=== PATIENT | female | born 1965 | race Caucasian/White ===

== ENCOUNTER → 2017-11-13 16:24 | Outpatient (CLI) | payer OTHER, SELFPAY ==
--- NOTE | 2017-11-13 16:29 | DI.RAD.S_ITS ---
PROCEDURE: XR KNEE RT 3V INDICATIONS: RIGHT KNEE PAIN TECHNIQUE: 3 views of the knee were acquired. COMPARISON: None. FINDINGS: Bones: No fractures or dislocations. No suspicious bony lesions. Slight narrowing of the medial joint compartment. Small bone spurs over the posterior patella. Soft tissues: Trace joint effusion. No suspicious soft tissue calcifications. IMPRESSION: No acute bony abnormality. Mild degenerative changes. Dictated by: Christopher Melendez M.D. on 11/13/2017 at 16:54 Approved by: Christopher Melendez M.D. on 11/13/2017 at 16:55
== END ==
PROVIDERS: PCP Family Medicine; Visit Provider Family Medicine
DX: M25.561 Pain in right knee (principal)
CPT/HCPCS: 73562

== ENCOUNTER → 2017-12-27 07:33 | Outpatient (CLI) | payer OTHER, SELFPAY ==
--- NOTE | 2017-12-27 | DI.MRI.S_ITS ---
PROCEDURE: MR KNEE RT WO CON INDICATIONS: RIGHT KNEE PAIN TECHNIQUE: Noncontrast sagittal PD fast spin echo and T2 fast spin echo with fat saturation, sagittal 3-D FLASH with fat saturation; coronal T1 spin echo and PD fast spin echo with fat saturation, and axial PD fast spin echo with fat saturation through the knee. COMPARISON: [facility], CR, XR KNEE RT 3V, 11/13/2017, 16:08. FINDINGS: Image quality: Diagnostic. Bones and joint: There is no acute fracture or dislocation. No suspicious osseous lesions are evident. No significant knee joint effusion is identified. There is no Suh's cyst. Moderate irregularity of the hyaline articular cartilage is noted within the lateral compartment, particularly along the central aspect of the lateral tibial plateau with areas of cartilaginous fissuring. No underlying reactive marrow changes are evident. Otherwise, the remainder of the articular cartilage throughout the knee is within normal limits. Cruciate ligaments: The anterior and posterior cruciate ligaments are intact. Menisci: Horizontal increased signal is identified extending from the periphery to the free edge of the body of the lateral meniscus. No detached or displaced lateral meniscal tears are identified. There is increased signal evident on the periphery of the posterior horn of the medial meniscus. No detached fragments are identified. Medial structures: The medial collateral ligament is intact. The semimembranosus tendon insertion is intact. However, this tendon is markedly diminutive in size. The imaged portions of the pes anserinus tendons are unremarkable. No significant fluid is contained within the pes anserinus bursa. Lateral structures: The popliteal tendon is intact. The lateral collateral ligament proper (fibular collateral ligament) and the proximal tibiofibular ligaments are intact. The distal aspect of the biceps femoris tendon and the iliotibial band are intact. Anterior structures: The quadriceps and patellar tendons are intact. There is no significant edema in the infrapatellar fat pad. IMPRESSION: 1. Nondisplaced horizontal tear involving the body of the lateral meniscus. 2. Early lateral compartment chondromalacia. 3. Probable fraying along the periphery of the posterior horn of the medial meniscus. No displaced fragments. Dictated by: Abrahan Howe M.D. on 12/27/2017 at 16:35 Approved by: Abrahan Howe M.D. on 12/27/2017 at 16:39
== END ==
PROVIDERS: PCP Family Medicine; Visit Provider Family Medicine
DX: S83.281A Other tear of lateral meniscus, current injury, right knee, initial encounter (principal); M94.261 Chondromalacia, right knee
CPT/HCPCS: 73721

== ENCOUNTER → 2018-09-22 08:00 | Outpatient (CLI) | payer OTHER, SELFPAY ==
--- NOTE | 2018-09-22 08:03 | DI.MG.S_ITS ---
BILATERAL DIGITAL SCREENING MAMMOGRAM 3D/2D WITH CAD: 09/22/2018 CLINICAL: Routine screening. Comparison is made to exams dated: 08/17/2016 mammogram, 05/21/2015 mammogram, and 04/10/2007 mammogram - [facility]. The tissue of both breasts is heterogeneously dense. This may lower the sensitivity of mammography. Current study was also evaluated with a Computer Aided Detection (CAD) system. There is a possible equal density asymmetry in the right breast middle depth lateral region seen on the craniocaudal view only. No other significant masses, calcifications, or other findings are seen in either breast. IMPRESSION: INCOMPLETE: NEEDS ADDITIONAL IMAGING EVALUATION The possible equal density asymmetry in the right breast is indeterminate. Additional views with possible ultrasound are recommended. This exam was interpreted at Station ID: [id number]. NOTE: For mammograms, a report in lay terms will be sent to the patient. Approximately 15% of breast malignancies will not be visualized mammographically. In the management of a palpable breast mass, a negative mammogram must not discourage biopsy of a clinically suspicious lesion. Electronically Signed By: True mendenhall/melissa:09/25/2018 10:20:18 copy to: Onur Martini letter sent: Additional Imaging Needed ACR BI-RADS Category 0: Incomplete 3340F
== END ==
PROVIDERS: PCP Family Medicine; Visit Provider Family Medicine
DX: Z12.31 Encounter for screening mammogram for malignant neoplasm of breast (principal)
CPT/HCPCS: 77063; 77067

== ENCOUNTER → 2018-10-12 09:11 | Outpatient (CLI) | payer OTHER, SELFPAY ==
--- NOTE | 2018-10-12 | DI.MG.S_ITS ---
UNILATERAL RIGHT DIGITAL DIAGNOSTIC MAMMOGRAM 3D/2D WITH ADDITIONAL VIEWS: 10/12/2018 Comparison is made to exams dated: 09/22/2018 mammogram, 08/17/2016 mammogram, and 05/21/2015 mammogram - [facility]. The tissue of right breast is heterogeneously dense. This may lower the sensitivity of mammography. The irregular equal density asymmetry in the right breast middle depth lateral region is less prominent with focal spot compression and lateral view. No other significant masses or calcifications are seen in the breast. IMPRESSION: INCOMPLETE: NEEDS ADDITIONAL IMAGING EVALUATION Although the asymmetry in the lateral breast dissapates with additional views, an ultrasound is recommended for further evaluation. This was performed immediately following this exam. This exam was interpreted at Station ID: [id number]. NOTE: For mammograms, a report in lay terms will be sent to the patient. Approximately 15% of breast malignancies will not be visualized mammographically. In the management of a palpable breast mass, a negative mammogram must not discourage biopsy of a clinically suspicious lesion. Electronically Signed By: Cynthia sullivan/:10/12/2018 11:46:32 copy to: Onur Martini [facility] BI-RADS Category 0: Incomplete 3340F
--- NOTE | 2018-10-12 09:12 | DI.US.S_ITS ---
LIMITED ULTRASOUND OF RIGHT BREAST: 10/12/2018 CLINICAL: Patient returns today to evaluate a focal asymmetry in the right breast. Comparison is made to exams dated: 10/12/2018 mammogram, 09/22/2018 mammogram, 08/17/2016 mammogram, 05/21/2015 mammogram, and 04/10/2007 mammogram - [facility]. Color flow, real-time, and continuous wave Doppler ultrasound of the right breast 9-11 o'clock region were performed. Dense fibrous strands of tissue with multiple small foci of hypoechoic glandular tissue without discrete shadowing mass are present from 9-11:00, 3-5 cm from the nipple. No one focal area corresponds to mammographic area of concern. IMPRESSION: PROBABLY BENIGN Dense fibroglandular tissue is present without a distinct lesion. Mammographic and sonographic appearance is probably benign and a follow-up right mammogram and an ultrasound in 6 months is recommended to demonstrate stability. Findings and recommendations were conveyed to the patient at time of exam. This exam was interpreted at Station ID: [id number]. Electronically Signed By: Cynthia sullivan/:10/12/2018 11:52:27 copy to: Onur Martini letter sent: Followup Recommended Ultrasound BI-RADS: 3 Probably benign
== END ==
PROVIDERS: PCP Family Medicine
DX: R92.8 Other abnormal and inconclusive findings on diagnostic imaging of breast (principal); N64.89 Other specified disorders of breast
CPT/HCPCS: 76642; 77065; G0279

== ENCOUNTER 2019-01-03 12:35 | Day surgery (SDC) | payer OTHER, SELFPAY ==
--- NOTE | 2019-01-03 | PATH_ITS ---
[facility] Accession Number: [id number] . 01 Material submitted: . colon - COLON POLYP AT 90 CM . 01 Clinical history: . ENCOUNTER FOR SCREENING FOR MAILGNANT NEOPLASM . 02 Diagnosis: Colon at 90 cm, Polyp: Colonic mucosa with prominent benign lymphoid aggregate. Negative for serrated lesion, dysplasia or malignancy. 01/04/2019 . 02 Electronically signed: . Jed Yoo MD, PhD, Pathologist NPI- [id number] . 01 Gross description: . COLON POLYP AT 90 CM: Received in formalin are 2 fragment(s) of frank, soft tissue measuring 0.2 x 0.2 x 0.2 cm to 0.3 x 0.2 x 0.2 cm which is entirely submitted and submitted entirely in 1 cassette(s) /DMC /DMC . 02 Pathologist provided ICD-10: K63.5 . 02 CPT . 604770 Performed at: 01 [facility] [address], [place], [place] [id number] MD Dom Thurman MD Phone: [phone] Performed at: 02 [facility] [address] [place], [place] [id number] MD Asiya Edwards MD Phone: [phone]
[2019-01-03 13:36] VITALS: BP 120/78; PULSE 71; RESP 16; TEMP 36.1; O2SAT 98; BMI 33.0
[2019-01-03] MEDS: SODIUM CHLORIDE 0.9% 1,000 ML 200 ML IV (13:44)
--- NOTE | 2019-01-03 14:34 | PM.HP.1 ---
History of Present Illness History of Present Illness Date Patient Seen: 01/03/19 Time Patient Seen: 14:34 Chief complaint: [id number] Narrative: Patient presents for colorectal screening. They have never had any previous examination for such. On further history denies any recent gastrointestinal symptoms. No nausea, vomiting, abdominal pain, loss of appetite, unexplained weight loss, change in bowel habits, diarrhea, constipation, melena, hematochezia, or bright red blood per rectum. Patient History Surgical History History of third molar tooth extraction Status post dilation and curettage Status post laparoscopic cholecystectomy Social History household members: family Smoking Status: Never smoker Family & Social History Social History: household members family Tobacco & Substance use: Smoking Status Never smoker Meds Home Medications and Allergies Home Medications Medication Instructions Recorded Confirmed Type venlafaxine [Effexor XR] 150 mg PO QDAY #0 05/27/16 01/03/19 History acyclovir 400 mg PO BID #120 mg 12/22/16 01/03/19 Rx colesevelam 625 mg tablet 1,250 mg PO BID 06/25/18 01/03/19 History divalproex 500 mg tablet,delayed 500 mg PO BID 06/25/18 01/03/19 History release levothyroxine 50 mcg PO DAILY 01/03/19 01/03/19 History Allergies Allergy/AdvReac Type Severity Reaction Status Date / Time aspirin [ASPIRIN] Allergy Unknown UNKNOWN Verified 01/03/19 13:18 codeine [CODEINE] Allergy Unknown UNKNOWN Verified 01/03/19 13:18 ibuprofen [IBUPROFEN] Allergy Unknown UNKNOWN Verified 01/03/19 13:18 lamotrigine [LAMOTRIGINE] Allergy Unknown WELTS/ITCHI Verified 01/03/19 13:18 NG oxycodone [OXYCODONE] Allergy Unknown UNKNOWN Verified 01/03/19 13:18 Penicillins [PENICILLINS] Allergy Unknown UNKNOWN Verified 01/03/19 13:18 Sulfa (Sulfonamide Allergy Unknown UNKNOWN Verified 01/03/19 13:18 Antibiotics) [SULFA (SULFONAMIDE ANTIBIOTICS)] Review of Systems Review of Systems ROS Unobtainable: All systems reviewed & are unremarkable except as noted in HPI and below Exam Vital Signs (past 8 hours): - 01/03/19 13:36 Temperature 96.9 F L Pulse Rate 71 Respiratory Rate 16 Blood Pressure 120/78 Pulse Oximetry 98 Oxygen Delivery Method Room Air Narrative Exam Narrative: General-adult female no acute distress, well nourished HEENT-moist mucous membranes, no scleral icterus Neck-supple with full range of motion, no lymphadenopathy Chest- no labored respirations, clear to auscultation bilaterally Cardiac-regular rate and rhythm Abdomen-soft, nontender, non distended Extremities-no edema, warm well perfused Neurological-alert and oriented x 3. No focal deficits Skin-normal temperature and turgor, no rashes or ulcers Assessment & Plan Assessment and plan (1) Screening for colorectal cancer: Current visit: Yes Status: Acute Assessment & Plan narrative: Patient is requiring colorectal screening. Colonoscopy is recommended. Technical details were discussed. Risks, benefits, alternatives explained. Risks including but not limited to sedation, aspiration, bleeding, pain, missed lesion, incomplete examination, need for further radiographic studies, colonic perforation, need for major abdominal surgery, and all attendant risks major surgery were discussed at length. All questions were answered to their satisfaction, and they voiced understanding.
[2019-01-03] MEDS: ONDANSETRON 4 MG/2 ML INJ IV (15:18)
[2019-01-03] MEDS: fentaNYL 250 MCG/5 ML INJ IV (15:19)
[2019-01-03] MEDS: MIDAZOLAM 5 MG/5 ML VIAL IV (15:19)
[2019-01-03 15:22] VITALS: BP 105/71; PULSE 69; RESP 13; TEMP 36.2; O2SAT 98
--- NOTE | 2019-01-03 15:25 | PM.OP.ENDO ---
Operative Date/Time/Diagnoses Date of procedure: 01/03/19 Time of procedure: 15:25 Pre-op diagnosis: Screening colonoscopy Post-op diagnosis: other (Diverticulosis) Procedure & Clinicians Study performed: Colonoscopy Same procedure as scheduled: Yes Indications: 53-year-old asymptomatic female presents for screening colonoscopy Surgeon: Yonatan Mendez Procedure Notes SCOAP/Timeout: Performed Procedure in detail: A digital rectal exam was performed that demonstrated no masses. Colonoscope was carefully inserted into the rectum and advanced to the colon. The ileocecal valve was reached. There was a colonic polyp 90 cm in the right colon that was less than 1 cm and benign and P in its appearance that was biopsied. The scope was carefully withdrawn. Scope was retroflexed within the rectum in demonstrated grade 1 internal hemorrhoids. The scope was then removed. Patient tolerated the procedure well. The quality of the prep was moderate Scope withdrawal time: 10 Sedation minutes: 32 Findings: diverticulosis and polyp Specimen(s): other (Polyp less than 1 cm 90 cm right colon) Complications: none Impression: Polyp Post-procedure Recommendations: Colonscopy in 10 years Disposition: same day surgery
[2019-01-03 15:27] VITALS: BP 108/66; PULSE 66; RESP 18; O2SAT 98
--- NOTE | 2019-01-03 15:30 | SUR.PHASEI ---
Post procedure note: patient arrived to PACU Drowsy but awake. VSS, O2 sat on RA WNL. no complaints of pain. Sitting up, tolerating PO liquids and crackers without nausea. Mami Nugent RN
[2019-01-03 15:37] VITALS: BP 103/72; PULSE 68; RESP 14; TEMP 36.2; O2SAT 97
[2019-01-03 15:55] VITALS: BP 115/60; PULSE 69; RESP 18; TEMP 36.1; O2SAT 99
== END 2019-01-03 16:00 | disposition home or self-care (01) ==
PROVIDERS: PCP Family Medicine; Visit Provider Surgery
PROC: 0DJD8ZZ Inspection of Lower Intestinal Tract, Via Natural or Artificial Opening Endoscopic (ICD-10-PCS; CPT 45378; principal; 2019-01-03 14:00)
DX: Z12.11 Encounter for screening for malignant neoplasm of colon (principal); K57.30 Diverticulosis of large intestine without perforation or abscess without bleeding; K64.0 First degree hemorrhoids; K63.5 Polyp of colon
CPT/HCPCS: 45380; 93005; 99152; 99153; J2250; J2405; J3010

== ENCOUNTER → 2019-06-07 09:15 | Outpatient (CLI) | payer OTHER, SELFPAY ==
--- NOTE | 2019-06-07 09:18 | DI.MG.S_ITS ---
UNILATERAL RIGHT DIGITAL DIAGNOSTIC MAMMOGRAM 3D/2D SHORT-TERM FOLLOW-UP: 06/07/2019 CLINICAL: Short term follow up. Comparison is made to exams dated: 10/12/2018 mammogram, 09/22/2018 mammogram, and 08/17/2016 mammogram - [facility]. The tissue of right breast is heterogeneously dense. This may lower the sensitivity of mammography. The asymmetry in the right breast middle depth lateral region seen on the craniocaudal view only on the previous screening mammogram on 09/22/18 is not seen in additional views. This was not seen on additional views or ultrasound dated 10/12/18. No other significant masses or calcifications are seen in the breast. IMPRESSION: The asymmetry in the right breast seen on the previous screening mammogram likely respresents superimposed fibroglandular tissue and is benign. There is no mammographic evidence of malignancy. A 1 year screening mammogram is recommended. This exam was interpreted at Station ID: [id number]. NOTE: For mammograms, a report in lay terms will be sent to the patient. Approximately 15% of breast malignancies will not be visualized mammographically. In the management of a palpable breast mass, a negative mammogram must not discourage biopsy of a clinically suspicious lesion. Electronically Signed By: Radha Roberts M.D. lk/:06/07/2019 09:55:50 copy to: Onur Martini letter sent: Normal Exam ACR BI-RADS Category 2: Benign Finding(s) 3342F
== END ==
PROVIDERS: PCP Family Medicine
DX: R92.2 Inconclusive mammogram (principal)
CPT/HCPCS: 77065; G0279

== ENCOUNTER 2019-10-28 17:32 | Emergency (ER) | payer OTHER, SELFPAY ==
[2019-10-28] VITALS (28 sets, daily range): BP systolic 114–139; BP diastolic 68–92; PULSE 74–88; RESP 20; TEMP 37.1; O2SAT 94–99
--- NOTE | 2019-10-28 18:24 | DI.CT.S_ITS ---
PROCEDURE: CT HEAD/BRAIN WO CON INDICATIONS: headache TECHNIQUE: Noncontrast 4.5 mm thick angled axial sections acquired from the foramen magnum to the vertex, with coronal and sagittal reformats. For radiation dose reduction, the following was used: automated exposure control, adjustment of mA and/or kV according to patient size. COMPARISON: [facility], CT, HEAD WITHOUT CONTRAST, 08/02/2014, 5:12. FINDINGS: Image quality: Excellent. CSF spaces: Basal cisterns are patent. No extra-axial fluid collections. Ventricles are normal in size and shape. Brain: No midline shift. No intracranial masses or hemorrhage. De La Paz-white matter interface is normal. Skull and face: Calvarium and visualized facial bones are intact, without suspicious lesions. Sinuses: Visualized sinuses and mastoids are clear. IMPRESSION: No acute intracranial abnormality. Dictated by: Ashish Avendaño M.D. on 10/28/2019 at 19:04 Approved by: Ashish Avendaño M.D. on 10/28/2019 at 19:05
--- NOTE | 2019-10-28 18:24 | DI.CT.S_ITS ---
PROCEDURE: CT CERVICAL SPINE WO CON INDICATIONS: rt side neck pain TECHNIQUE: Noncontrast 3 mm thick sections acquired from the skull base to the T4 level. Sagittal and coronal reformats were then constructed. For radiation dose reduction, the following was used: automated exposure control, adjustment of mA and/or kV according to patient size. COMPARISON: CT, C-SPINE WITHOUT CONTRAST, 04/01/2008, 18:39. FINDINGS: Image quality: Excellent. Bones: No fractures or dislocations. There is degenerative disc disease, moderate to severe at C4-C5 and C5-C6, mild at C3-C4 and C6-C7. There is moderate central canal stenosis at C5-C6. Mild bilateral facet arthropathy scattered in the cervical spine. Visualized superior ribs are intact. Soft tissues: Prevertebral soft tissues are normal in thickness. No paravertebral hematomas. No apical pneumothoraces. IMPRESSION: 1. Degenerative disc and facet disease in cervical spine. 2. Moderate central canal stenosis at C5-C6. Dictated by: Ashish Avendaño M.D. on 10/28/2019 at 19:01 Approved by: Ashish Avendaño M.D. on 10/28/2019 at 19:19
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
[2019-10-28] MEDS: SODIUM CHLORIDE 0.9% 1,000 ML 1000 ML IV (19:02)
[2019-10-28 19:07] LABS: Add Manual Diff / Slide Review NO; Basophils Absolute Auto 100 /uL (0-100); Basophils Percent Auto 1.3 % (0-2); Eosinophils Absolute Auto 200 /uL (0-450); Eosinophils Percent Auto 2.8 % (2-4); Hematocrit 39.1 % (36-46); Hemoglobin 13.5 g/dL (12.0-16.0); Lymphocytes Absolute Auto 2400 /uL (1100-4500); Lymphocytes Percent Auto 39.3 % (25-40); Mean Corpuscular HGB Conc 34.4 % (30-36); Mean Corpuscular Hemoglobin 32.7 PG (26-34); Monocytes Absolute Auto 400 /uL (0-900); Monocytes Percent Auto 6.6 % (3-14); Neutrophils Absolute Auto 3100 /uL (1500-7000); Red Blood Cell Count 4.11 X10^6/uL (4.0-5.2); Red Cell Distribution Width 13.1 % (11.6-14.8); White Blood Cell Count 6.2 X10^3/uL (4.5-11.0)
[2019-10-28] MEDS: ONDANSETRON 4 MG/2 ML INJ IV (19:07)
[2019-10-28] MEDS: HYDROMORPHONE 1 MG INJ IV ×2 (19:07→21:59)
[2019-10-28 19:20] LABS: Platelet Count 107 X10^3/uL (150-400)
[2019-10-28 19:24] LABS: Alanine Aminotransferase 22 IU/L (<35); Albumin 4.2 g/dL (3.5-5.0); Albumin Globulin Ratio 1.4 (1.0-2.8); Alkaline Phosphatase 45 U/L (38-126); Aspartate Aminotransferase 39 IU/L (14-36); Bilirubin Total 0.3 mg/dL (0.2-1.3); Blood Urea Nitrogen 14 mg/dL (7-17); Calcium 8.9 mg/dL (8.4-10.2); Carbon Dioxide 25 mmol/L (22-32); Chloride 103 mmol/L (98-107); Estimated Glomerular Filt Rate > 60.0 mL/min (>60); Globulin 3.1 g/dL (1.7-4.1); Glucose 126 mg/dL (70-100); HEMOLYSIS 58 (0-50); Sodium 136 mmol/L (137-145); Total Protein 7.3 g/dL (6.3-8.2)
--- NOTE | 2019-10-28 20:03 | PC.NURSE ---
assumed care of pt. report rec'd from VINAY mckeon. resting in bed. IVF completed. reports dilaudid reduced pain from 02/07 to 10/08. reclined. asking for soda. given. VS WNL. NAD. awaiting further orders.
[2019-10-28] MEDS: diazePAM 5 MG TABLET PO (20:47)
[2019-10-28] MEDS: methylPREDNISolone 125 MG/2 ML VIAL 80 MG IV (21:58)
== END 2019-10-28 23:25 | disposition home or self-care (01) ==
PROVIDERS: Emergency Provider Emergency Medicine; PCP Family Medicine
DX: G43.909 Migraine, unspecified, not intractable, without status migrainosus (principal); M54.12 Radiculopathy, cervical region
CPT/HCPCS: 70450; 72125; 80053; 85025; 96361; 96374; 96375; 96376; 99284; J1170; J2405; J2930

== ENCOUNTER → 2020-06-26 11:33 | Outpatient (CLI) | payer OTHER, SELFPAY ==
--- NOTE | 2020-06-26 11:37 | DI.RAD.S_ITS ---
PROCEDURE: XR THORACIC SPINE 2V INDICATIONS: CERVICALGIA, BACK PAIN TECHNIQUE: 2 views of the thoracic spine were acquired. COMPARISON: None. FINDINGS: Bones: No fracture. Multilevel degenerative endplate sclerosis and spurring. Diffuse facet arthropathy. Soft tissues: No paravertebral stripe thickening. IMPRESSION: No fracture Dictated by: Raffy Boss M.D. on 06/26/2020 at 17:43 Approved by: Raffy Boss M.D. on 06/26/2020 at 17:44
--- NOTE | 2020-06-26 11:37 | DI.RAD.S_ITS ---
PROCEDURE: XR LUMBAR SPINE 2-3V INDICATIONS: BACK PAIN, NECK PAIN TECHNIQUE: 2 views of the lumbar spine were acquired. COMPARISON: None. FINDINGS: Bones: No fractureMultilevel degenerative endplate sclerosis and spurring. Diffuse facet arthropathy. Diffuse mild narrowing of the lumbar disc spaces. Minimal levocurvature. Bilateral moderate hip joint degeneration. Soft tissues: Overlying bowel gas pattern is normal. No suspicious soft tissue calcifications. IMPRESSION: Diffuse mild lumbar spondylosis and minimal levocurvature Facet arthropathy Dictated by: Raffy Boss M.D. on 06/26/2020 at 17:54 Approved by: Raffy Boss M.D. on 06/26/2020 at 17:55
--- NOTE | 2020-06-26 11:37 | DI.RAD.S_ITS ---
PROCEDURE: XR CERVICAL SPINE 2V INDICATIONS: BACK PAIN, NECK PAIN TECHNIQUE: 2 view(s) of the cervical spine were acquired. COMPARISON: None. FINDINGS: Bones: No fractures or dislocations to the T1 level. The lateral masses of C1 appear intact on the odontoid view. No suspicious bony lesions. Moderate C4-C5, C5-C6, C6-C7 and C7-T1 degenerative disc disease. Moderate bilateral C4-C5, C5-C6 and C6-C7 uncovertebral joint hypertrophy. Soft tissues: No prevertebral soft tissue swelling. IMPRESSION: 1. Moderate multilevel degenerative disc disease and uncovertebral arthropathy. 2. No fracture. No acute osseous lesion. If symptoms and/or clinical suspicion for pathology persists, evaluation with MRI should be considered for further assessment. Dictated by: Sunshine Bermudez MD, PhD on 06/26/2020 at 17:46 Approved by: Sunshine Bermudez MD, PhD on 06/26/2020 at 17:48
== END ==
PROVIDERS: PCP Family Medicine; Referring Provider Chiropractor; Visit Provider Chiropractor
DX: M99.01 Segmental and somatic dysfunction of cervical region (principal); M99.02 Segmental and somatic dysfunction of thoracic region; M99.03 Segmental and somatic dysfunction of lumbar region; M54.6 Pain in thoracic spine; M54.5 Low back pain; M47.812 Spondylosis without myelopathy or radiculopathy, cervical region; M50.321 Other cervical disc degeneration at C4-C5 level; M47.814 Spondylosis without myelopathy or radiculopathy, thoracic region; M47.816 Spondylosis without myelopathy or radiculopathy, lumbar region
CPT/HCPCS: 72040; 72070; 72100

== ENCOUNTER → 2020-08-27 10:11 | Outpatient (CLI) | payer OTHER, SELFPAY ==
--- NOTE | 2020-08-27 10:14 | DI.MG.S_ITS ---
BILATERAL DIGITAL SCREENING MAMMOGRAM 3D/2D WITH CAD: 08/27/2020 CLINICAL: Routine screening. Comparison is made to exams dated: 10/12/2018 mammogram, 09/22/2018 mammogram, and 08/17/2016 mammogram - [facility]. The tissue of both breasts is heterogeneously dense. This may lower the sensitivity of mammography. Current study was also evaluated with a Computer Aided Detection (CAD) system. No significant masses, calcifications, or other findings are seen in either breast. There has been no significant interval change. IMPRESSION: NEGATIVE There is no mammographic evidence of malignancy. A 1 year screening mammogram is recommended. This exam was interpreted at Station ID: [id number]. NOTE: For mammograms, a report in lay terms will be sent to the patient. Approximately 15% of breast malignancies will not be visualized mammographically. In the management of a palpable breast mass, a negative mammogram must not discourage biopsy of a clinically suspicious lesion. Electronically Signed By: Isaiah Bronson M.D., jr/melissa:08/27/2020 10:38:11 copy to: Onur Martini letter sent: Normal Exam ACR BI-RADS Category 1: Negative [id number]
== END ==
PROVIDERS: PCP Family Medicine; Referring Provider Family Medicine; Visit Provider Family Medicine
DX: Z12.31 Encounter for screening mammogram for malignant neoplasm of breast (principal)
CPT/HCPCS: 77063; 77067

== ENCOUNTER 2021-02-20 13:21 | Emergency (ER) | payer OTHER, SELFPAY ==
[2021-02-20 13:38] VITALS: BP 148/94; PULSE 73; RESP 20; TEMP 36.2; O2SAT 98; BMI 32.3
--- NOTE | 2021-02-20 15:41 | ED.NECK ---
HPI - Neck Pain/Injury <Glynn Reis PA-C - Last Filed: 02/20/21 16:08> General Chief Complaint: Neck Pain/Injury Stated Complaint: Severe neck pain Time Seen by Provider: 02/20/21 14:12 Mode of arrival: Ambulatory Limitations: no limitations History of Present Illness HPI Narrative: 55-year-old female presents to the emergency department today for evaluation of neck pain that began 3 days ago. Patient states that her pain has worsened since onset, and she denies any strenuous or repetitive physical activity prior to the onset of her symptoms. Patient states that her pain radiates to her shoulders bilaterally. Patient states that she experienced similar symptoms approximately 1 year ago after standing her deck at home. Denies fever, chills, nausea, vomiting, chest pain, shortness of breath, photophobia. No other complaints reported at this time. Related Data Home Medications Medication Instructions Recorded Confirmed venlafaxine 150 mg 150 mg PO QDAY #0 05/27/16 11/26/19 capsule,extended release 24 hr (Effexor XR) colesevelam 625 mg tablet (WelChol) 1,250 mg PO BID 06/25/18 11/26/19 divalproex 500 mg tablet,delayed 500 mg PO BID 06/25/18 11/26/19 release (Depakote) levothyroxine 50 mcg tablet 50 mcg PO DAILY 01/03/19 11/26/19 Previous Rx's Medication Instructions Recorded acyclovir 400 mg tablet 400 mg PO BID #120 mg 12/22/16 diazepam 5 mg tablet (Valium) 5 mg PO BID PRN #7 tab 10/28/19 gabapentin 300 mg capsule 300 mg PO BEDTIME #30 cap 02/20/21 methylprednisolone 4 mg tablets in See Rx Instructions .ROUTE 02/20/21 a dose pack (Medrol (Alfonso)) .COMPLEX #21 ea Allergies Allergy/AdvReac Type Severity Reaction Status Date / Time aspirin [ASPIRIN] Allergy Unknown UNKNOWN Verified 02/20/21 13:38 codeine [CODEINE] Allergy Unknown UNKNOWN Verified 02/20/21 13:38 ibuprofen [IBUPROFEN] Allergy Unknown UNKNOWN Verified 02/20/21 13:38 lamotrigine [LAMOTRIGINE] Allergy Unknown WELTS/ITCHI Verified 02/20/21 13:38 NG oxycodone [OXYCODONE] Allergy Unknown UNKNOWN Verified 02/20/21 13:38 Penicillins [PENICILLINS] Allergy Unknown UNKNOWN Verified 02/20/21 13:38 Sulfa (Sulfonamide Allergy Unknown UNKNOWN Verified 02/20/21 13:38 Antibiotics) [SULFA (SULFONAMIDE ANTIBIOTICS)] Review of Systems <Glynn Reis PA-C - Last Filed: 02/20/21 16:08> Constitutional Constitutional: Denies chills, Denies fever(s), Denies frequent falls, Denies lethargy and Denies weakness Eyes Eyes: Denies change in vision, Denies eye discharge, Denies irritation and Denies loss of vision ENT Ears, Nose, Mouth, and Throat: Denies dizziness and Reports neck pain Cardiovascular Cardiovascular: Denies chest pain, Denies irregular heart rhythm, Denies lightheadedness, Denies palpitations, Denies dyspnea, Denies dyspnea on exertion and Denies orthopnea Respiratory Respiratory: Denies cough, Denies dyspnea, Denies dyspnea on exertion and Denies wheezing Gastrointestinal Gastrointestinal: Denies abdominal pain, Denies change in bowel habits, Denies diarrhea, Denies nausea and Denies vomiting Musculoskeletal Musculoskeletal: Reports neck pain and Denies numbness Neurologic Neurologic: Denies behavioral changes, Denies confusion, Denies dizziness, Denies frequent falls, Denies loss of vision, Denies numbness and Denies weakness Psychiatric Psychiatric: Denies behavioral changes and Denies confusion Endocrine Endocrine: Denies palpitations Allergic/Immunologic Allergic/Immunologic: Denies wheezing Patient History <Glynn Reis PA-C - Last Filed: 02/20/21 16:08> Surgical History History of third molar tooth extraction Status post dilation and curettage Status post laparoscopic cholecystectomy Social History household members: family Smoking Status: Never smoker Smoking Status: Never smoker Substance Use Type: does not use Exam <Glynn Reis PA-C - Last Filed: 02/20/21 16:08> Narrative Exam Narrative: GENERAL: 55 year old patient appears stated age. Well-developed patient, in mild distress. HEAD: Atraumatic. Normocephalic. EYES: Pupils equal round and reactive. Extraocular motions intact. No scleral icterus. No injection or drainage. No observed discomfort when eyes examined with light. ENT: Nose without bleeding, purulent drainage. Throat without erythema, tonsillar hypertrophy or exudate. Airway patent. NECK: Trachea midline. Tenderness to palpation along the sternocleidomastoid muscles bilaterally, no midline cervical bony tenderness. CARDIOVASCULAR: Regular rate and rhythm without murmurs, gallops, or rubs. RESPIRATORY: Clear to auscultation. Breath sounds equal bilaterally. No wheezes, rales, or rhonchi. GASTROINTESTINAL: Abdomen soft, non-tender, nondistended. EXTREMITIES: No edema or joint tenderness. BACK: Nontender without deformity or crepitance. No flank tenderness. NEURO: AOx3. SKIN: No rash or erythema of visible areas Initial Vital Signs Initial Vital Signs: Vital Signs Temperature 97.2 F L 02/20/21 13:38 Pulse Rate 73 02/20/21 13:38 Respiratory Rate 20 02/20/21 13:38 Blood Pressure 148/94 H 02/20/21 13:38 Pulse Oximetry 98 02/20/21 13:38 <Torito Martinez DO - Last Filed: 02/21/21 08:23> Initial Vital Signs Initial Vital Signs: Vital Signs Temperature 97.2 F L 02/20/21 13:38 Pulse Rate 73 02/20/21 13:38 Respiratory Rate 20 02/20/21 13:38 Blood Pressure 148/94 H 02/20/21 13:38 Pulse Oximetry 98 02/20/21 13:38 Course <Glynn Reis PA-C - Last Filed: 02/20/21 16:08> Course Course Narrative: 55-year-old female presents to the emergency department today for evaluation of neck pain that began 3 days ago. Patient notes that her current symptoms are similar to the symptoms she has experienced one year ago when she was diagnosed with cervical radiculopathy. Reassuring physical exam increases the likelihood of exacerbated cervical radiculopathy, and lack of fever and negative Brudzinski sign lessen the likelihood of meningitis. Previous imaging modalities confirm known diagnosis of cervical radiculopathy. Vital Signs Vital signs: Vital Signs - 8 hr 02/20/21 13:38 Temperature 97.2 F L Pulse Rate 73 Respiratory Rate 20 Blood Pressure 148/94 H Pulse Oximetry 98 <Torito Kinston, DO - Last Filed: 02/21/21 08:23> Vital Signs Vital signs: Vital Signs - 8 hr 02/20/21 13:38 Temperature 97.2 F L Pulse Rate 73 Respiratory Rate 20 Blood Pressure 148/94 H Pulse Oximetry 98 MDM - Neck Pain/Injury <Glynn ReisBRYAN - Last Filed: 02/20/21 16:08> MDM Narrative Medical decision making narrative: 55-year-old female presents to the emergency department today for evaluation of neck pain that began 3 days ago. To consider cervical stenosis/cervical radiculopathy versus muscle spasm versus migraine versus meningitis versus muscle strain. Discharge Plan Departure Patient Disposition: Home Clinical Impression: Cervical radiculopathy Instructions: DI for Neck Pain Activity Restrictions/Additional Instructions: *You have been diagnosed with cervical radiculopathy *What to do: *Please continue to take your regular medications as directed. [X] New medication prescriptions sent to your pharmacy: [facility] - Medrol Alfonso, Gabapentin [ ] New medication written as a paper prescription [ ] No new medications given *Please follow up with your primary care provider in 2-3 days, call for an appointment. Let them know you were seen in the Emergency Department and that we ask that you be seen in follow up. We will electronically transmit a record of today's note if your PCP is in our system. Please also follow-up with [facility] for their earliest available appointment. Call for appointment at [phone]. *If you do not have a primary care provider please contact the [facility] Resource line at [phone]. They will ask some questions about your medical history and help get you set up with a doctor in the community. *Return to Emergency Department if you should have any new, worsening or concerning symptoms, such as [fever greater than 101 F, shaking chills, worsening pain, persistent vomiting or other bothersome symptoms] Prescriptions: New methylprednisolone [Medrol (Alfonso)] 4 mg tablets,dose pack See Rx Instructions .ROUTE .COMPLEX Qty: 21 RF: 0 gabapentin 300 mg capsule 300 mg PO BEDTIME Qty: 30 RF: 0 No Action venlafaxine [Effexor XR] 150 MG capsule,extended release 24hr 150 mg PO QDAY Qty: 0 RF: 0 acyclovir 400 MG tablet 400 mg PO BID Qty: 120 RF: 4 colesevelam [WelChol] 625 mg tablet 1,250 mg PO BID RF: 0 divalproex [Depakote] 500 mg tablet,delayed release (DR/EC) 500 mg PO BID RF: 0 levothyroxine 50 mcg Tablet 50 mcg PO DAILY RF: 0 diazepam [Valium] 5 mg tablet 5 mg PO BID PRN (Reason: muscle spasm) Qty: 7 RF: 0 Referrals: Ricky Mares MD [Physician] - As soon as possible Onur Martini MD [Primary Care Provider] - <Torito Martinez DO - Last Filed: 02/21/21 08:23> Cosign ED Attending Cosignature Attestation: I was immediately available in the department for consultation. This documentation has been reviewed and I agree with assessment and plan. Supervised by Torito Martinez DO
== END 2021-02-20 16:28 | disposition home or self-care (01) ==
PROVIDERS: Emergency Provider Physician Assistant; PCP Family Medicine
DX: M54.12 Radiculopathy, cervical region (principal)
CPT/HCPCS: 99281

== ENCOUNTER → 2021-05-14 07:07 | Outpatient (CLI) | payer OTHER, SELFPAY ==
--- NOTE | 2021-05-14 | DI.US.S_ITS ---
PROCEDURE: US PELVIC COMPLETE INDICATIONS: PERIMENOPAUSAL DUB TECHNIQUE: Real-time scanning was performed of the pelvic organs, with image documentation. Additional endovaginal scanning was necessary due to incomplete visualization of the adnexal and endometrial structures by transabdominal scanning. COMPARISON: None. FINDINGS: Uterus: Uterus is anteverted and normal in size at 10.8 x 6.7 x 6.8 cm. The myometrium is homogeneous. The endometrium measures 8.3 mm combined thickness. Ovaries: The ovaries are not visualized. No adnexal masses are seen. Other: No pathologic free abdominal or pelvic fluid. IMPRESSION: No significant abnormality. We strive to produce accurate, complete, and clear reports of imaging services. To assist us in improving patient care, this report was composed using standard report templates and voice recognition software. Therefore, it may contain abnormal punctuation, insertions and/or omissions. Occasional wrong-word or sound-alike substitutions may occur. Though we review the report and make efforts to correct it, we do recommend that the report be read carefully in proper context to recognize any text inaccuracies. Dictated by: Zeke Calvert M.D. on 05/14/2021 at 8:32 Approved by: Zeke Calvert M.D. on 05/14/2021 at 8:34
== END ==
PROVIDERS: PCP Family Medicine; Referring Provider Family Medicine; Visit Provider Family Medicine
DX: N92.4 Excessive bleeding in the premenopausal period (principal)
CPT/HCPCS: 76856

== ENCOUNTER → 2021-08-25 11:12 | Outpatient (CLI) | payer OTHER, SELFPAY ==
[2021-08-25 12:37] LABS: COVID19 -Nasal RAPID Negative (Negative)
== END ==
PROVIDERS: PCP Family Medicine; Visit Provider Obstetrics & Gynecology
DX: Z01.812 Encounter for preprocedural laboratory examination (principal); Z20.822 Contact with and (suspected) exposure to COVID-19
CPT/HCPCS: 87635

== ENCOUNTER 2021-08-26 13:28 | Day surgery (SDC) | payer OTHER, SELFPAY ==
[2021-08-26] VITALS (7 sets, daily range): BP systolic 106–159; BP diastolic 67–89; PULSE 86–93; RESP 14–19; TEMP 36.2–37.2; O2SAT 93–98; BMI 38.7
--- NOTE | 2021-08-26 | PATH_ITS ---
[facility] Accession Number: [id number] . 01 Material submitted: . PART A: endocervix - ENDOCERVICAL CURETTINGS PART B: endometrium - ENDOMETRIAL CURETTINGS . 02 Diagnosis: A. Endocervical Curettings: Squamous and metaplastic squamous mucosa with focal cytologic atypia suggestive of, but not diagnostic of, low-grade squamous intraepithelial lesion / [id number]. Background of acute and chronic cervicitis. Portions of lower uterine segment / endometrium with pseudo- decidualized stromal change suggestive of possible exogenous hormone effect; negative for glandular hyperplasia, cytologic atypia, or malignancy. Inflamed portions of endocervical tissue with microglandular hyperplasia; negative for glandular dysplasia or malignancy. Some tissue fragments demonstrate prominent vessels, suggestive of polyp, if clinical and imaging findings are concordant. . B. Endometrial Curettings: Portions of weakly proliferative endometrium with pseudodecidualized stromal change, suggestive of possible exogenous hormone effect. Some endometrial fragments demonstrate prominent vessels, suggestive of polyp, if clinical and imaging studies are concordant. Scant, inflamed endocervical tissue fragments; negative for glandular dysplasia or malignancy. [facility] 08/31/2021 1547 Local . 02 Comment: The biopsy results correlate with Pap smear [id number]. . 02 Electronically signed: . Augusta Friedman MD, Pathologist NPI- [id number] . 01 Gross description: . Part A: ENDOCERVICAL CURETTINGS: Received in formalin are minute fragments of mucoid and hemorrhagic material measuring 0.5 x 0.5 x 0.2 cm in aggregate. Submitted in toto in 1 cassette. Part B: ENDOMETRIAL CURETTINGS: Received in formalin are minute fragments of mucoid and hemorrhagic material measuring 0.7 x 0.7 x 0.3 cm in aggregate. Submitted in toto in 1 cassette. /ZELDA 08/27/2021 2333 Local . 02 Pathologist provided ICD-10: R87.619 . 02 CPT . 995110, [id number] Specimen Comment: A courtesy copy of this report has been sent to [phone] Performed at: 01 [facility] [address] [address], [place], [place] [id number] MD Dom Thurman MD Phone: [phone] Performed at: 02 [facility] [address] [place], [place] [id number] MD Asiya Edwards MD Phone: [phone]
[2021-08-26] MEDS: LACTATED RINGERS 1,000 ML 84 ML IV (14:11)
--- NOTE | 2021-08-26 15:20 | PM.PREOP ---
Pre-operative Note COVID-19 COVID-19 status: Negative Result date/Date tested (Pos, Neg/Pending): 08/25/21 Criteria for continued procedure: Non-surgical alternatives not available or appropriate per current SOC Interval Note History & Physical reviewed/Exam performed by Physician: Yes Changes to H&P: No
--- NOTE | 2021-08-26 15:37 | SUR.OPER ---
Lithotomy on padded OR bed, head on pillow, arms secured on padded arm boards at <90 degrees abduction. Legs secured in padded yellow fins stirrups.
--- NOTE | 2021-08-26 15:58 | PM.GYNOP.1 ---
Operative Date/Time/Diagnoses Date of procedure: 08/26/21 Time of procedure: 15:15 Pre-op diagnosis: Perimenopausal menometrorrhagia Post-op diagnosis: same Procedure & Clinicians Procedure: Procedures Operation Date: 08/26/21 14:30 Actual Procedure Side Surgeon p Hysteroscopy w/ poss. BX's, D&C of uterus, Endometrial Ablation (Novasure) Ar Coronel MD Indications: Johanny is a 55-year-old who in November or December stopped having periods but on May 11, 2021, had the sudden onset of severe vaginal bleeding.? Bleeding was bright red with clots and severe cramping.? The patient was seen by her primary care physician, Dr. Martini, who prescribed daily oral contraceptive tablets.? The patient's bleeding abated with the oral contraceptives but return 5 weeks later at which point she experienced 3 weeks of continuous bleeding.? At that point she was started on t.i.d. oral contraceptives 3 days ago which have now stopped her bleeding and she presents for evaluation.? Pelvic ultrasound performed on 05/14/2021 is unremarkable with the uterus measuring 10.8 x 6.7 x 6.8 cm.? The myometrium is homogeneous.? The endometrium measures 8.3 mm in combined thickness and the adnexa are unremarkable.? Patient experienced menarche at age 14 and has had a life time of irregular menses.? Patient required ovulation induction and IVF for conception of her last .? Patient is not sexually active.? Patient leaves currently requiring 4 doses of Provera daily to stop her bleeding and is experiencing weight gain and headaches with these.? After considering all options, the patient has decided to proceed with hysteroscopy and possible biopsies, dilation and curettage of uterus, and endometrial ablation (NovaSure).? Patient presents today for her scheduled surgery. Surgeon: Ar Coronel Anesthesia Type: General Operative Notes Findings: The endometrial cavity is unremarkable with no focal lesions and bland, smooth-surfaced endometrium. Both tubal ostia visible. Closure Type: not applicable Specimen(s): endometrial curettings and other (Endocervical curettings) Estimated blood loss (mL): 10 Blood products transfused: none Procedure in detail: With the patient under satisfactory general LMA, in the modified dorsal lithotomy position, the perineum and vagina were prepped and draped in the usual fashion for hysteroscopy.? A pre-surgical safety time-out was then taken in accordance with [facility] OR protocols.? A bivalve speculum was inserted in the vagina and the anterior lip of the cervix grasped with a single-tooth tenaculum.? The endocervical canal was then easily dilated to 6 mm and hysteroscope was placed through the endocervical canal into the endometrial cavity.? Inspection of the endometrial cavity with sterile saline as a distention medium revealed the findings as noted above.? Absent any focal lesions, no biopsies were taken but rather fractional curettage was then accomplished with abundant EMC and small amount of ECC submitted as separate pathologic specimens.? Following the D and C the endometrial cavity was sounded with the NovaSure device and found to be 6.5 cm in depth with a with of 3.5 cm.? After a successful cavity integrity test, the NovaSure ablation was initiated with a total ablation time of 1 minute 33 seconds and 125W utilized.? Hysteroscopic reinspection of endometrial cavity showed excellent ablation effect and the scope was removed from the endometrial cavity.? The tenaculum was then removed from the anterior lip the cervix and there was a small amount of bleeding noted from right side which was controlled with Allis clamps placed the site of puncture.? Once complete hemostasis was assured the speculum was removed from the vagina and patient awakened from anesthesia.? Patient was transferred to PACU for a period of observation and recovery having tolerated procedure. Complications: none Post-operative Condition: stable Disposition: PACU Plan for aftercare: Routine postoperative care with follow-up planned for 2 weeks postop.
[2021-08-26] MEDS: fentaNYL 100 MCG/2 ML INJ IV (16:04)
[2021-08-26] MEDS: LACTATED RINGERS 1,000 ML 42 ML IV (16:07)
[2021-08-26] MEDS: ACETAMINOPHEN 325 MG TABLET 975 MG PO (16:36)
== END 2021-08-26 16:45 | disposition home or self-care (01) ==
PROVIDERS: PCP Family Medicine; Referring Provider Obstetrics & Gynecology; Visit Provider Obstetrics & Gynecology
PROC: 0U5B8ZZ Destruction of Endometrium, Via Natural or Artificial Opening Endoscopic (ICD-10-PCS; CPT 58563; principal; 2021-08-26 14:30)
DX: N72 Inflammatory disease of cervix uteri (principal); E66.9 Obesity, unspecified; Z68.39 Body mass index [BMI] 39.0-39.9, adult
CPT/HCPCS: 58563; J1100; J2405; J2704; J3010

== ENCOUNTER 2021-08-28 15:51 | Emergency (ER) | payer OTHER, SELFPAY ==
[2021-08-28] VITALS (7 sets, daily range): BP systolic 150–168; BP diastolic 70–80; PULSE 59–63; RESP 18–22; TEMP 36.7; O2SAT 96–98; BMI 37.1
[2021-08-28 16:18] LABS: Add Manual Diff / Slide Review NO; Basophils Absolute Auto 200 /uL (0-100); Basophils Percent Auto 1.3 % (0-2); Eosinophils Absolute Auto 0 /uL (0-450); Eosinophils Percent Auto 0.2 % (2-4); Hematocrit 35.8 % (36-46); Lymphocytes Absolute Auto 3900 /uL (1100-4500); Lymphocytes Percent Auto 31.3 % (25-40); Mean Corpuscular HGB Conc 33.5 % (30-36); Mean Corpuscular Hemoglobin 31.2 PG (26-34); Monocytes Absolute Auto 800 /uL (0-900); Monocytes Percent Auto 6.7 % (3-14); Neutrophils Absolute Auto 7600 /uL (1500-7000); Neutrophils Percent Auto 60.5 % (50-75); Platelet Count 235 X10^3/uL (150-400); Red Blood Cell Count 3.85 X10^6/uL (4.0-5.2); Red Cell Distribution Width 13.8 % (11.6-14.8); White Blood Cell Count 12.5 X10^3/uL (4.5-11.0)
--- NOTE | 2021-08-28 16:19 | ED_ITS ---
HPI - Chest Pain General Chief Complaint: Chest Pain Stated Complaint: post op, diff breathing, chest pain Time Seen by Provider: 08/28/21 15:57 Source: patient Mode of arrival: Ambulatory Limitations: no limitations History of Present Illness HPI narrative: Patient is a 56-year-old female. Approximately 48 hours ago underwent general anesthesia for a uterine ablation. She states that she has been having vaginal bleeding for the past 4 months. Has been on control and progesterone without any improvement of the bleeding. She stated that the procedure went well. She is having some discharge which she expects. She is also having a sore throat which she expects from the general anesthesia. Last evening she had a relatively sudden onset of right-sided chest discomfort. She also states that is difficult for her to take a big deep breath. She has also been coughing but feels like she can not cough up anything. Also has a headache. She contacted the nurse advice line and told her to come to the emergency department for concerns of a blood clot. She has never had a blood clot in the past. No prior underlying lung issues. No underlying cardiac issues. No lower extremity swelling. Related Data Home Medications Medication Instructions Recorded Confirmed venlafaxine 150 mg 150 mg PO QDAY #0 05/27/16 08/26/21 capsule,extended release 24 hr (Effexor XR) colesevelam 625 mg tablet (WelChol) 1,250 mg PO BID 06/25/18 08/26/21 divalproex 500 mg tablet,delayed 500 mg PO BID 06/25/18 08/26/21 release (Depakote) levothyroxine 50 mcg tablet 50 mcg PO DAILY 01/03/19 08/26/21 Previous Rx's Medication Instructions Recorded acyclovir 400 mg tablet 400 mg PO BID #120 mg 12/22/16 azithromycin 250 mg tablet See Rx Instructions .ROUTE 08/28/21 .COMPLEX #6 tab Allergies Allergy/AdvReac Type Severity Reaction Status Date / Time aspirin [ASPIRIN] Allergy Unknown UNKNOWN Verified 08/26/21 14:12 codeine [CODEINE] Allergy Unknown UNKNOWN Verified 08/26/21 14:12 gabapentin Allergy Unknown Verified 08/26/21 14:15 ibuprofen [IBUPROFEN] Allergy Unknown UNKNOWN Verified 08/26/21 14:12 lamotrigine [LAMOTRIGINE] Allergy Unknown WELTS/ITCHI Verified 08/26/21 14:12 NG oxycodone [OXYCODONE] Allergy Unknown UNKNOWN Verified 08/26/21 14:12 Penicillins [PENICILLINS] Allergy Unknown UNKNOWN Verified 08/26/21 14:12 Sulfa (Sulfonamide Allergy Unknown UNKNOWN Verified 08/26/21 14:12 Antibiotics) [SULFA (SULFONAMIDE ANTIBIOTICS)] Review of Systems Constitutional Constitutional: Reports system reviewed and no additional complaints, except as documented ENT Ears, Nose, Mouth, and Throat: Reports system reviewed and no additional complaints, except as documented Cardiovascular Cardiovascular: Reports as per HPI and Reports system reviewed and no additional complaints, except as documented Respiratory Respiratory: Reports as per HPI and Reports system reviewed and no additional complaints, except as documented Genitourinary Genitourinary: Reports system reviewed and no additional complaints, except as documented Integumentary/Breasts Skin/Breast: Reports system reviewed and no additional complaints, except as documented Neurologic Neurologic: Reports system reviewed and no additional complaints, except as documented and Reports as per HPI Hematologic/Lymphatic On Anticoagulants: No Allergic/Immunologic Allergic/Immunologic: Reports system reviewed and no additional complaints, except as documented Patient History Medical History Infertility Surgical History (Updated 07/18/21 @ 20:49 by Candice Guevara) Anesthesia History of hand surgery History of third molar tooth extraction Status post dilation and curettage Status post laparoscopic cholecystectomy Social History household members: family Smoking Status: Never smoker alcohol intake: former Smoking Status: Never smoker Substance Use Type: does not use Exam Initial Vital Signs Initial Vital Signs: Vital Signs Temperature 98.1 F 08/28/21 16:00 Pulse Rate 60 08/28/21 16:00 Respiratory Rate 22 08/28/21 16:00 Blood Pressure 166/78 H 08/28/21 16:00 Pulse Oximetry 98 08/28/21 16:00 HENMT Head: normal to inspection Throat: posterior oropharynx normal Resp Effort & Inspection: normal respiratory effort Auscultation: clear to auscultation bilaterally Cardio Rate: regular rate Rhythm: regular rhythm GI Inspection: normal to inspection Skin General: no rashes or lesions noted Neuro General: patient alert, patient awake, patient oriented x3 and moves all extremities Extrem General: No edema Psych Appearance: grossly normal Course Orders Ordered: ED Orders 08/28/21 16:00 Complete Blood Count AUTO DIFF Stat Comprehensive Metabolic Panel Stat Lipase Stat Troponin & CK Cardiac Panel Stat 08/28/21 16:09 EKG-12 Lead Stat 08/28/21 16:20 CT angio chest PE protocol Stat Vital Signs Vital signs: Vital Signs - 8 hr 08/28/21 16:00 08/28/21 16:36 Temperature 98.1 F Pulse Rate 60 59 L Respiratory Rate 22 20 Blood Pressure 166/78 H 153/80 H Pulse Oximetry 98 96 MDM - Chest Pain Lab Data Attestation: I reviewed the patient's lab results. Result diagrams: 08/28/21 16:00 08/28/21 16:00 Labs: Lab Results 08/28/21 08/28/21 08/28/21 Range/Units 16:00 16:00 16:00 WBC 12.5 H (4.5-11.0) X10^3/uL RBC 3.85 L (4.0-5.2) X10^6/uL Hgb 12.0 (12.0-16.0) g/dL Hct 35.8 L (36-46) % MCV 93.0 (80-100) fL MCH 31.2 (26-34) PG MCHC 33.5 (30-36) % RDW 13.8 (11.6-14.8) % Plt Count 235 (150-400) X10^3/uL Neut % (Auto) 60.5 (50-75) % Lymph % (Auto) 31.3 (25-40) % [place] % (Auto) 6.7 (3-14) % Eos % (Auto) 0.2 L (2-4) % Baso % (Auto) 1.3 (0-2) % Neut # (Auto) 7600 H (3279-7731) /uL Lymph # (Auto) 3900 (8741-1647) /uL [place] # (Auto) 800 (0-900) /uL Eos # (Auto) 0 (0-450) /uL Baso # (Auto) 200 H (0-100) /uL Sodium 139 (137-145) mmol/L Potassium 3.5 (3.4-5.1) mmol/L Chloride 101 (98-107) mmol/L Carbon Dioxide 28 (22-32) mmol/L BUN 15 (7-17) mg/dL Creatinine 0.95 (0.52-1.04) mg/dL Estimated GFR > 60 (>60) mL/min BUN/Creatinine Ratio 15.8 (6-22) Glucose 127 H (70-100) mg/dL Calcium 8.0 L (8.4-10.2) mg/dL Total Bilirubin 0.4 (0.2-1.3) mg/dL AST 28 (14-36) IU/L ALT 21 (<35) IU/L Alkaline Phosphatase 37 L (38-126) U/L Total Creatine Kinase 107 (30-135) U/L CK-MB (CK-2) 1.01 (<2.37) ng/mL CK-MB (CK-2) Rel Index 0.9 L (1.5-5.0) % Troponin I < 0.012 (0.01-0.034) ng/mL Total Protein 6.4 (6.3-8.2) g/dL Albumin 3.6 (3.5-5.0) g/dL Globulin 2.8 (1.7-4.1) g/dL Albumin/Globulin Ratio 1.3 (1.0-2.8) Lipase 238 (23-300) U/L Imaging Data CT scan - chest: Radiologist's Impression: [place] [address] CT Scan Report Signed Patient: Johanny José MR#: [id number] : 1965 Acct:[id number] Age/Sex: 56 / F Date of Service: 08/28/21 Loc: ED Accession Number: [id number] ?? Procedure: CT angio chest PE protocol Ordering Provider: Bran Evans D.O. PROCEDURE:? CT ANGIO CHEST PE PROTOCOL ? INDICATIONS:? Chest pain, shortness of breath, tachycardia ? TECHNIQUE:? After the administration of intravenous contrast, 2 mm thick sections acquired from the pulmonary apices to the posterior costophrenic angles.? 3-dimensional maximum intensity projection (MIP) coronal and sagittal reformats were then acquired through the t horax.? For radiation dose reduction, the following was used:? automated exposure control, adjustment of mA and/or kV according to patient size.? ? COMPARISON:? None. ? FINDINGS:? Image quality:? Excellent.? ? Pulmonary arteries:? Pulmonary arteries are normal in size, and demonstrate no intraluminal filling defects to suggest central pulmonary embolism.? ? Lungs and pleura:? Patchy ground-glass type infiltrates are seen.? There is a trace right-sided pleural effusion.? No pneumothorax.? Central and peripheral airways are patent.? ? Mediastinum:? Heart size is mildly enlarged, without pericardial effusion.? No mediastinal or hilar adenopathy.? Thoracic aorta is normal in caliber and enhancement.? Esophagus is normal in caliber.? There is a moderate hiatal hernia.? ? Bones and chest wall:? No suspicious bony lesions.? Ribs and thoracic spine appear intact throughout.? Thyroid gland demonstrates no significant abnormality.? No axillary or supraclavicular adenopathy.? ? Abdomen:? Visualized upper abdominal solid organs appear normal in the early arterial phase of enhancement.? Cholecystectomy clips are seen on the pharmacy district manager image. ? ? ? IMPRESSION:? Negative for pulmonary embolism. ? Cardiomegaly is seen, with ground-glass type opacities.? Please consider CHF versus atypical infiltrate (including COVID pneumonia).? ? A trace right-sided pleural effusion is seen. ? ? ? Incidental note is made of: Moderate hiatal hernia Cholecystectomy? ? Dictated by: Raul Ordoñez M.D. on 08/28/2021 at 16:36 ? ? Approved by: Raul Ordoñez M.D. on 08/28/2021 at 16:39 ECG Data Attestation: I personally reviewed and interpreted this ECG as follows: Prior ECG tracings: available for review Interpretation: Sinus bradycardia Ventricular rate of 56 Sinus rhythm Normal QRS Normal QTC No ST T wave changes MDM Narrative Medical decision making narrative: CT scan shows no signs of pulmonary embolism. Does show bilateral ground-glass opacities. I have low suspicion for COVID pneumonia as she just had a negative COVID test on the . Had a procedure on the . It has not been anywhere since then. She is afebrile. Does have a leukocytosis but this very well could be stress reaction given her recent procedure. She is afebrile. Does not have a productive cough. I have low suspicion for ACS is her symptoms on the right side and her EKG is unremarkable and her troponin is negative greater than 6 hours after the onset of her symptoms. Patient clinically not heart failure. I feel that this is unlikely. Her symptoms are either a developing pneumonia secondary to the intubation and recent procedure or potentially a pneumonitis given her recent procedure. The plan will be is to give her prescription for antibiotics but she was going to hold on this for the next 24-48 hours. If she starts to develop fevers or productive cough she will take it as directed. If her symptoms worsen she will return to the emergency department. If her symptoms improve then she will dispose of the antibiotic prescription. Patient expressed understanding agreement this plan. Discharge Plan Departure Patient Disposition: Home Clinical Impression: Shortness of breath Instructions: DI for Shortness of Breath Activity Restrictions/Additional Instructions: Please follow all of the postoperative procedure instructions that the surgeon gave you. Keep all of your schedule medical appointments. Take all of your medications as directed. Hold on filling the prescription for antibiotics for now. If you start to develop a fever or productive cough over the next 24-48 hours can take the antibiotics as directed. If your symptoms worsen please return to the emergency department for further evaluation. Prescriptions: New azithromycin 250 mg tablet See Rx Instructions .ROUTE .COMPLEX Qty: 6 0RF Rx Instructions: For 250 mg dose pack: take 500 mg today (day 1), then 250 mg for 4 days (days 2-5) No Action venlafaxine [Effexor XR] 150 MG capsule,extended release 24hr 150 mg PO QDAY Qty: 0 0RF acyclovir 400 MG tablet 400 mg PO BID Qty: 120 4RF colesevelam [WelChol] 625 mg tablet 1,250 mg PO BID 0RF divalproex [Depakote] 500 mg tablet,delayed release (DR/EC) 500 mg PO BID 0RF levothyroxine 50 mcg Tablet 50 mcg PO DAILY 0RF Referrals: Onur Martini MD [Primary Care Provider] -
--- NOTE | 2021-08-28 16:20 | DI.CT.S_ITS ---
PROCEDURE: CT ANGIO CHEST PE PROTOCOL INDICATIONS: Chest pain, shortness of breath, tachycardia TECHNIQUE: After the administration of intravenous contrast, 2 mm thick sections acquired from the pulmonary apices to the posterior costophrenic angles. 3-dimensional maximum intensity projection (MIP) coronal and sagittal reformats were then acquired through the thorax. For radiation dose reduction, the following was used: automated exposure control, adjustment of mA and/or kV according to patient size. COMPARISON: None. FINDINGS: Image quality: Excellent. Pulmonary arteries: Pulmonary arteries are normal in size, and demonstrate no intraluminal filling defects to suggest central pulmonary embolism. Lungs and pleura: Patchy ground-glass type infiltrates are seen. There is a trace right-sided pleural effusion. No pneumothorax. Central and peripheral airways are patent. Mediastinum: Heart size is mildly enlarged, without pericardial effusion. No mediastinal or hilar adenopathy. Thoracic aorta is normal in caliber and enhancement. Esophagus is normal in caliber. There is a moderate hiatal hernia. Bones and chest wall: No suspicious bony lesions. Ribs and thoracic spine appear intact throughout. Thyroid gland demonstrates no significant abnormality. No axillary or supraclavicular adenopathy. Abdomen: Visualized upper abdominal solid organs appear normal in the early arterial phase of enhancement. Cholecystectomy clips are seen on the card grinder helper image. IMPRESSION: Negative for pulmonary embolism. Cardiomegaly is seen, with ground-glass type opacities. Please consider CHF versus atypical infiltrate (including COVID pneumonia). A trace right-sided pleural effusion is seen. Incidental note is made of: Moderate hiatal hernia Cholecystectomy Dictated by: Raul Ordoñez M.D. on 08/28/2021 at 16:36 Approved by: Raul Ordoñez M.D. on 08/28/2021 at 16:39
[2021-08-28 16:23] LABS: Creatine Kinase 107 U/L (30-135)
[2021-08-28 16:25] LABS: Alanine Aminotransferase 21 IU/L (<35); Albumin 3.6 g/dL (3.5-5.0); Albumin Globulin Ratio 1.3 (1.0-2.8); Alkaline Phosphatase 37 U/L (38-126); Aspartate Aminotransferase 28 IU/L (14-36); BUN Creatinine Ratio 15.8 (6-22); Bilirubin Total 0.4 mg/dL (0.2-1.3); Blood Urea Nitrogen 15 mg/dL (7-17); Carbon Dioxide 28 mmol/L (22-32); Chloride 101 mmol/L (98-107); Estimated Glomerular Filt Rate > 60 mL/min (>60); Globulin 2.8 g/dL (1.7-4.1); Glucose 127 mg/dL (70-100); HEMOLYSIS < 15 (0-50); Lipase 238 U/L (23-300); Potassium 3.5 mmol/L (3.4-5.1); Sodium 139 mmol/L (137-145); Total Protein 6.4 g/dL (6.3-8.2)
[2021-08-28 16:36] LABS: Troponin I < 0.012 ng/mL (0.01-0.034)
[2021-08-28 16:39] LABS: CKMB % Relative Index 0.9 % (1.5-5.0); Creatine Kinase MB 1.01 ng/mL (<2.37)
== END 2021-08-28 18:11 | disposition home or self-care (01) ==
PROVIDERS: Emergency Provider Emergency Medicine; PCP Family Medicine
DX: R06.02 Shortness of breath (principal); R07.9 Chest pain, unspecified; Z98.890 Other specified postprocedural states
CPT/HCPCS: 36415; 71275; 80053; 82550; 82553; 83690; 84484; 85025; 99284; Q9967

== ENCOUNTER → 2021-10-19 08:06 | Outpatient (CLI) | payer OTHER, SELFPAY | PROVIDERS: PCP Family Medicine; Referring Provider Family Medicine; Visit Provider Family Medicine | DX: Z53.20 Procedure and treatment not carried out because of patient's decision for unspecified reasons (principal) ==

== ENCOUNTER → 2021-11-12 14:39 | Outpatient (CLI) | payer OTHER, SELFPAY ==
[2021-11-12 15:50] LABS: COVID19 -Nasal RAPID Negative (Negative)
== END ==
PROVIDERS: PCP Family Medicine; Visit Provider Obstetrics & Gynecology
DX: Z01.812 Encounter for preprocedural laboratory examination (principal); Z20.822 Contact with and (suspected) exposure to COVID-19
CPT/HCPCS: 87635

== ENCOUNTER 2021-11-15 08:09 | Day surgery (SDC) | payer OTHER, SELFPAY ==
[2021-11-12 07:59] VITALS: BMI 39.4
[2021-11-15] VITALS (12 sets, daily range): BP systolic 97–147; BP diastolic 56–87; PULSE 92–100; RESP 14–18; TEMP 36.3–37.3; O2SAT 3–99; BMI 39.4
--- NOTE | 2021-11-15 | PATH_ITS ---
[facility] Accession Number: [id number] . 01 Material submitted: . uterus - CERVIX, UTERUS, BILATERAL TUBES AND OVARIES . 01 Diagnosis: Cervix, Uterus, Bilateral Tubes and Bilateral Ovaries, Hysterectomy and Bilateral Salpingo-oophorectomy: Cervix with mild chronic inflammation, no dysplasia or malignancy. Sloughed benign endometrium with changes consistent with ablation, no atypia or malignancy. Unremarkable bilateral ovaries and fimbriated bilateral fallopian tubes. [facility] 11/18/2021 1044 Local . 01 Electronically signed: . Cathy Bernal MD, Pathologist NPI- [id number] . 01 Gross description: . Received in a container of formalin, labeled uterus, cervix, bilateral tubes and ovaries, is a 170 g, 9.5 x 6.0 x 6.0 cm uterus and cervix with attached bilateral ovaries and fallopian tubes. The uterine serosa is frank-pink, smooth and glistening. The ectocervix is white, smooth, and glistening and the central cervical os is patent, measuring 0.5 cm in diameter. The endocervical canal is focally raised. The cervix is sectioned and has unremarkable cut surfaces. The distal uterine cavity and the lower uterine segment appear to have been previously ablated. The mucosa at this location is dark red, hemorrhagic, and shaggy. The uterine endometrium and the fundus is frank-pink and focally hemorrhagic. The endometrium measures in thickness from 0.2 cm in the fundus to 0.7 cm in the lower uterine segment. The uterus is serially sectioned. The myometrium is frank-pink and rubbery, and measures up to 2 cm in thickness. No myometrial masses or lesions are identified are identified. The right ovary measures 3.0 x 1.5 x 0.8 cm. The serosa is congested, smooth, and glistening. The ovary is sectioned and has unremarkable cut surfaces. The attached fallopian tube measures 6.0 x 0.5 cm. The serosa is dark red, congested, smooth, and glistening. There is a patent stellate lumen on cut surfaces. The left ovary measures 2.8 x 1.5 x 1.3 cm. The serosa is frank, congested, smooth, and glistening. The ovary is serially sectioned and has unremarkable cut surfaces. The attached fallopian tube measures 6.0 x 0.5 cm. The serosa is dark red, congested, smooth, and glistening. There is a patent stellate lumen on cut surfaces. Aviation Ordnance Officer sections are submitted as follows: A1: Anterior and posterior cervix, posterior mucosa slightly raised. A2: Anterior endomyometrium fundus. A3: Anterior endomyometrium lower uterine segment. A4: Posterior endomyometrium fundus. A5: Posterior endomyometrium distal uterine cavity. A6: Right ovary. A7: Cross section of right fallopian tube and the entire fimbriated end. A8: Left ovary. A9: Cross section of left fallopian tube and its entire fimbriated end. ([id number]) /R 11/18/2021 0358 Local . 01 Pathologist provided ICD-10: N92.1, N99.85 . 01 CPT . 889155 Specimen Comment: A courtesy copy of this report has been sent to [phone] Performed at: 01 [facility] [address] [place] [address], [place], [place] [id number] MD Dom Thurman MD Phone: [phone]
[2021-11-15] MEDS: LACTATED RINGERS 1,000 ML 42 ML IV ×2 (08:48→10:58)
--- NOTE | 2021-11-15 09:40 | PM.PREOP ---
Pre-operative Note COVID-19 COVID-19 status: Negative Result date/Date tested (Pos, Neg/Pending): 11/15/21 Criteria for continued procedure: Non-surgical alternatives not available or appropriate per current SOC Interval Note History & Physical reviewed/Exam performed by Physician: Yes Changes to H&P: No
[2021-11-15] MEDS: CEFAZOLIN 2 GM/20 ML SYRINGE IV (10:10)
[2021-11-15] MEDS: BUPIVACAINE 0.5% (PF) 30 ML, EPINEPHrine 0.15 MG INJ (10:59)
[2021-11-15] MEDS: ROPIVACAINE 0.2% PF 2 MG/ML 10ML AMP 20 ML INJ (11:42)
--- NOTE | 2021-11-15 12:14 | PM.GYNOP.1 ---
Operative Date/Time/Diagnoses Date of procedure: 11/15/21 Time of procedure: 09:15 Pre-op diagnosis: Menometrorrhagia Post-op diagnosis: same Procedure & Clinicians Procedure: Procedures Operation Date: 11/15/21 09:45 Actual Procedure Side Surgeon p Laparoscopic Total Hysterectomy w. poss. bilateral salpingo-oophorectomy Ar Coronel MD Indications: Johanny is a 55-year-old who in November or December 2020 stopped having periods but on May 11, 2021, had the sudden onset of severe vaginal bleeding.? Bleeding was bright red with clots and severe cramping.? The patient was seen by her primary care physician, Dr. Martini, who prescribed daily oral contraceptive tablets.? The patient's bleeding abated with the oral contraceptives but returned 5 weeks later at which point she experienced 3 weeks of continuous bleeding.? At that point she was started on t.i.d. oral contraceptives 3 days ago which have now stopped her bleeding and she presents for evaluation.? Pelvic ultrasound performed on 05/14/2021 is unremarkable with the uterus measuring 10.8 x 6.7 x 6.8 cm.? The myometrium is homogeneous.? The endometrium measures 8.3 mm in combined thickness and the adnexa are unremarkable.? Patient underwent hysteroscopy w/ D&C and endometrial ablation on 08/26/2021.? Unfortunately relief from her menometrorrhagia was short-lived and the patient has gone back to having nearly continuous bleeding and has decided to pursue definitive therapy in the form of total laparoscopic hysterectomy with plans for bilateral salpingo oophorectomy in the [facility] on 11/15/2021.? Patient presents today for her scheduled surgery. Surgeon: Ar Coronel Fire Extinguisher Sprinkler Inspector: Haley Brito Anesthesia Type: General Operative Notes Findings: The uterus is upper limits of normal size and normal in shape. Both fallopian tubes and ovaries appear normal. There was some filmy adhesions in the posterior cul-de-sac involving the epiploica to the posterior cul-de-sac peritoneum. There are no abnormalities of the anterior cul-de-sac. The appendix appears to be normal and do the liver edge and diaphragm. Closure Type: primary Specimen(s): left tube & ovary, right tube & ovary and uterus Applied: catheter Estimated blood loss (mL): 100 Blood products transfused: none Procedure in detail: With the patient in modified dorsal lithotomy position preparations were made by prepping and draping the patient in usual manner for vaginal surgery and insertion of Orosco catheter. A pre-surgical time-out was then taken in accordance with [facility] policy. A bivalve speculum was then placed in the vagina and the cervix visualized. The anterior lip of the cervix was then grasped with a single-tooth tenaculum. The uterus was sounded to 9 cm, the endocervical canal dilated slightly, and a VCare uterine manipulator with a small colpotomy cup was placed. The umbilicus was then infiltrated with 0.5% Marcaine with epinephrine or a combination of 0.5% bupivacaine with epinephrine and liposomal bupivacaine. A 1 cm umbilical incision was made transversely and a Veress needle was used to insufflate the abdominal cavity with carbon dioxide. Once the abdomen was appropriately insufflated, a 5 mm trocar and sleeve were then placed through the umbilical incision. The scope was placed through the trocar and the initial assessment of the intra-abdominal contents carried out. A 2nd and 3rd 5 mm port was then placed 1st in the right mid quadrant from then the left mid quadrant by infiltration of the skin and subcutaneous tissues, a 1 cm transverse incision and insertion of the 5 mm bladeless port. Using a 3 puncture technique, the abdomen and pelvis were inspected laparoscopically. Uterus is mobilized with the VCare manipulator and attention turned to the right adnexa. The distal tube was then grasped and the utero-ovarian ligament divided after coagulation with the PowerSeal device. The dissection was then carried out across the mesosalpinx, down across the round ligament on the right extending down to the level of the vesicouterine reflection for the bladder flap was initiated. The vessels on the right were then skeletonized and coagulated with the PowerSeal device. Once hemostasis was assured on the right side attention was turned to the left and the infundibulopelvic ligament, mesosalpinx,round ligament, and broad ligament were dissected in a fashion exactly the same as it had been on the right. The left uterine artery was then visualized after skeletonization and coagulated and divided. The uterus was seen to rafia after coagulation of both uterine arteries and the cup was identified through the vaginal muscularis at its insertion with the body of the cervix. Circumferential excision of the vaginal cup was accomplished without difficulty using monopolar current and the uterus mobilized. The uterus was then removed through the vagina and the cuff closed from below with 0 Vicryl [id number] stitches initiated at both angles. The abdomen was then reinsufflated, the pelvis inspected for any abnormality or bleeding, and with complete hemostasis assured, the pneumoperitoneum was vented and the ports removed. All of the 5 mm ports were then closed with 4-0 Monocryl on the skin using inverted interrupted sutures. Skin glue was placed and after the glue was dried, an appropriate dressing was applied. The case was then terminated, the patient awakened, and then transferred to PACU after having tolerated the procedure well. Complications: none Post-operative Condition: stable Disposition: PACU Plan for aftercare: Routine postoperative care. Possible discharge later today.
[2021-11-15] MEDS: HYDROMORPHONE 4 MG TABLET PO ×2 (13:26→19:01)
[2021-11-15] MEDS: LACTATED RINGERS 1,000 ML 100 ML IV ×2 (13:27→18:57)
--- NOTE | 2021-11-15 15:21 | PC.NURSE ---
Addendum entered by Giselle Wells R.N. 11/15/21 19:29: 1700 - Pt sitting up in bed. Pain 5/10, but denies medication at this time. 1800 - Pt dangling at side of bed with RN assist. Pt requests to lay back in bed. Pt boosted in bed with help of Zack KAUR. 1830 - Pt laying in bed. 1914 - Report given to Freddy Paulino RN. Care relinquished. Addendum entered by Giselle Wells R.N. 11/15/21 16:55: 1645 - Pt sitting up in bed eating saltine crackers. Pt rates pain 5/10. Pt declines any pain medication at this time. Pt states the pain is tolerable. Ice chips given. 1653 - Homer NEWTON at bedside to assess pt. Addendum entered by Giselle Wells R.N. 11/15/21 15:56: 1540 - Pt's IV alarming due to position. 1556 - Homer NEWTON on unit. RN updated Md on pt status. Notified MD of positional IV. Orders to keep IV fluids running until pt can tolerate PO well. Original Note: 1250 - Pt arrived to BC03. Vitals stable. Pain 5/10. Does not want pain medication at this time. All three dressings on abdomen dry and intact. 1300 - Pt given ice chips and ice water. 1326 - Dilaudid 4mg PO given for pain 7/10. Pt's IV alarming for distal occlusion. Abdominal dressing remain dry and intact. 1445 - Pain 6/10. Pt does not want any additional pain medication at this time. Pt given hot tea and saltine crackers. 1515 - Pt IV continues to occlude. Will continue to monitor.
[2021-11-15] MEDS: ACETAMINOPHEN 325 MG TABLET 650 MG PO (17:59)
--- NOTE | 2021-11-15 20:18 | PC.NURSE ---
pt brought to room 203 via w/c
--- NOTE | 2021-11-15 20:35 | PC.NURSE ---
@ 193 rec'd report from Valerie palomino RN. @1944 VSS, afebrile. IV left hand at 100ml /hr, site unremarkable. Pain 4/10. vaginal bleeding small. 3 bandaids to abdomen, unremarkable. Pt has Incentive spirometer at bedside and verbalizes knowledge on its use. Dr Coronel notified that pt to be transferred to Med/Surg Rm 3. @ 1949 Phone report given to VINAY Blankenship @ 1999 [place] cath removed intact by VINAY Barker. Pt trx to room 3.
--- NOTE | 2021-11-15 22:20 | PC.NURSE ---
Pt took her own home medications, Acyclovir, Colesevelan, and Divalproex. Did not administer scheduled medications. Informed on-call OBS Dr Piedra of situation. Will continue to monitor.
[2021-11-16 04:21] VITALS: BP 125/64; PULSE 109; RESP 18; TEMP 36.2; O2SAT 94
--- NOTE | 2021-11-16 04:24 | PC.NURSE ---
Pt desating at night, O2 sat 85%. Giving 2 L O2 NC, sat at 98%. Will leave on for the night.
[2021-11-16] MEDS: LEVOTHYROXINE 50 MCG TABLET PO (05:59)
[2021-11-16] MEDS: HYDROMORPHONE 4 MG TABLET PO (06:11)
--- NOTE | 2021-11-16 06:15 | PC.NURSE ---
Pt alert and oriented this am, complained of pain, dilaudid given. No vaginal bleeding this shift, pt complains of muscle contractions and pain.
--- NOTE | 2021-11-16 07:00 | PM.DS.1 ---
History of Present Illness History of Present Illness Date Patient Seen: 11/16/21 Time Patient Seen: 07:01 Chief complaint: TOTAL LAP HYSTERECTOMY W/POSS JORGE SALP *OPB* Discharge Providers Provider Date of admission: 11/15/21 13:19 Discharge Date: 11/16/21 Primary care physician: Onur Martini MD Discharge provider: Ar Coronel MD Summary Hospital Course Discharge Diagnosis: Perimenopausal menometrorrhagia Hospital Course: Johanny was admitted on the morning of 11/15/2021 and underwent an uneventful total laparoscopic hysterectomy with bilateral salpingo-oophorectomy. Details of the procedure well summarized on my operative note of 11/15/2021. A following surgery the patient has done extremely well with prompt return of bowel and bladder function, she is ambulating independently, tolerating a regular diet, and her pain is well controlled with oral pain medications. First postop morning hemoglobin and hematocrit are 11.8 and 34.8 respectively which is consistent with observed operative losses. She experienced a transient episode of oxygen desaturation on the morning of 11/16/2021 which was transient and associated with hypoventilation related to sleeping following administration of 4 mg of hydromorphone. Her dosage of hydromorphone has been decreased to 2 mg as a result and she will be discharged on that dosage to home. She will be discharged at this time to home in an afebrile normotensive condition with medications to include Dilaudid 2 mg p.o. q.6 hours as needed pain dispense 20 with no refills. In addition the patient will use Tylenol for pain relief and she was also prescribed Cipro 500 mg BID x 5 days for UTI prophylaxis following perioperative catheterization. She has been provided with written instructions regarding activities, limitations of activities, medications, and plans for follow-up which will be in 2 weeks or as needed. Status at Discharge Cognitive/behavioral status at discharge: oriented Functional status at discharge: independent ambulation Overall status at discharge: patient is progressing back to baseline Time Spent with Patient Time spent: Less than 30 minutes Exam Vital Signs (past 8 hours): - 11/16/21 04:21 Temperature 97.1 F L Pulse Rate 109 H Respiratory Rate 18 Blood Pressure 125/64 Pulse Oximetry 94 Oxygen Flow Rate 3 Oxygen Delivery Method Room Air Oxygen Flow Rate 3 Const General: cooperative and comfortable Nutritional Appearance: average body habitus Orientation: alert and oriented x3 HENMT Head: normal to inspection, atraumatic and abrasion Ears: hearing grossly normal bilaterally Face and sinus: face symmetric Eyes General: appearance normal, both eyes and all related structures Conjunctivae: conjunctivae normal Sclera: sclerae normal EOM: EOM intact bilaterally Neck Neck: normal visual inspection Resp Effort & Inspection: normal respiratory effort and able to speak in complete sentences Auscultation: clear to auscultation bilaterally Cardio Rate: regular rate Rhythm: regular rhythm Heart Sounds: S1 normal, S2 normal and no murmurs GI Inspection: normal to inspection and incision (Surgical dressings clean and dry) Palpation: soft, no hepatosplenomegaly and tender (Mild, diffuse postsurgical tenderness) External Female Exam: other (No significant bleeding noted) Extrem General: no calf tenderness Psych Appearance: grossly normal Mental Status: mental status grossly normal Speech and Movement: speech and movement normal Mood: congruent mood Affect: normal affect Attitude: cooperative Thought Process: normal Thought Content: normal Judgment: judgment good Objective Labs Result Diagrams: 11/16/21 06:20 [facility] Medical History (Updated 11/09/21 @ 13:01 by Ar Coronel MD) Infertility Surgical History (Updated 11/12/21 @ 08:10 by Lindsey Lawrence RN) Anesthesia History of hand surgery History of hysteroscopy (08/26/21) History of third molar tooth extraction Status post dilation and curettage Status post laparoscopic cholecystectomy Social History household members: family Smoking Status: Never smoker alcohol intake: former Discharge Plan Discharge Plan Patient Disposition: Home Provider Discharge Comment: Please review the written instructions you received when you were discharged from the hospital. Your follow-up appointment will be scheduled for two weeks after your surgery and I look forward to seeing you then. If in the meanwhile you have any issues, concerns, or problems, please contact me either through the office phone at [phone] or via the patient portal. Discharge orders & Medications Prescriptions: New hydromorphone 2 mg tablet 2 mg PO Q6H PRN (Reason: pain) Qty: 20 0RF ciprofloxacin HCl [Cipro] 500 mg tablet 500 mg PO BID 5 Days Qty: 10 0RF Continued acyclovir 400 MG tablet 400 mg PO BID Qty: 120 4RF colesevelam [WelChol] 625 mg tablet 1,250 mg PO BID divalproex [Depakote] 500 mg tablet,delayed release (DR/EC) 500 mg PO BID levothyroxine 50 mcg Tablet 50 mcg PO DAILY azithromycin 250 mg tablet See Rx Instructions .ROUTE .COMPLEX Qty: 6 0RF Rx Instructions: For 250 mg dose pack: take 500 mg today (day 1), then 250 mg for 4 days (days 2-5) Follow up/Referrals: Onur Martini MD [Primary Care Provider] - Discharge Health Status Multidrug resistant organism: No MDRO Diet/Activity/Treatments Diet: Diet as Tolerated Activity: As tolerated Other treatments: Tylenol as need for pain relief Skin/Wound/Dressing Care Report to your healthcare provider any signs of infection, such as:: chills, fever, increased pain, unusual drainage and unusual redness Dressing: Dressings may be removed AM 11/17/2021 Visit Report/Discharge Packet Instructions: DI for Hysterectomy, DI for Laparoscopy, DI for Prescription Opioid Use Stand Alone Forms: Surgery Discharge Discharge Data Primary Care Provider: Onur Martini Quality VTE Deep Vein Thrombosis/Pulmonary Embolism Present on Admission: No
[2021-11-16 07:11] LABS: Add Manual Diff / Slide Review NO; Basophils Absolute Auto 100 /uL (0-100); Basophils Percent Auto 0.6 % (0-2); Eosinophils Absolute Auto 0 /uL (0-450); Hematocrit 34.8 % (36-46); Hemoglobin 11.8 g/dL (12.0-16.0); Lymphocytes Absolute Auto 2100 /uL (1100-4500); Lymphocytes Percent Auto 17.9 % (25-40); Mean Corpuscular HGB Conc 33.8 % (30-36); Mean Corpuscular Hemoglobin 31.6 PG (26-34); Mean Corpuscular Volume 93.5 fL (80-100); Monocytes Absolute Auto 800 /uL (0-900); Monocytes Percent Auto 6.9 % (3-14); Neutrophils Absolute Auto 8700 /uL (1500-7000); Neutrophils Percent Auto 74.6 % (50-75); Platelet Count 168 X10^3/uL (150-400); Red Blood Cell Count 3.72 X10^6/uL (4.0-5.2); Red Cell Distribution Width 13.9 % (11.6-14.8); White Blood Cell Count 11.6 X10^3/uL (4.5-11.0)
[2021-11-16] MEDS: ACYCLOVIR 400 MG TABLET PO (08:47)
[2021-11-16] MEDS: DIVALPROEX DR 250 MG TABLET 500 MG PO (08:47)
[2021-11-16] MEDS: COLESEVELAM 625 MG TABLET 1250 MG PO (08:50)
[2021-11-16 09:00] VITALS: BP 104/68; PULSE 92; RESP 19; TEMP 36.7; O2SAT 95
--- NOTE | 2021-11-16 09:11 | CM.DANOTE ---
DCP: Case received, EMR reviewed and met with patient. Introduced self and role. Was able to obtain information regarding patient's baseline activity level at home and current living situation. DCP assessment completed with information currently available. Patient is a 56 year old female who admitted yesterday afternoon to the care of the hospitalist team. PCP: Dr. Martini Payer: Dottie GRANT. Patient came to the hospital for a surgical procedure. She had lapararcopic total hysterectojy. Patient has history of perimenopausal menometrorrhagia. Met with patient in her room. She is alert and oriented. She resides in [place] with her 20 clarence old son. At her baseline, she is independent. Her mother lives nearby, in [place] as well. P: Patient has discharge orders for home today. Debbie Meléndez RN/Voucher Examiner Discharge Planning/Care Management Advanced directive, confirm from FAMILY Start: 11/15/21 14:13 Freq: Q24H Status: Active Protocol: Document 11/15/21 14:13 CS (Rec: 11/16/21 03:35 CS [id number]) Advance Directive, confirm on record Time 03:35 Person contacted pt Copy received No CM Discharge Assessment Start: 11/16/21 09:09 Freq: Status: Active Protocol: Document 11/16/21 09:09 (Rec: 11/16/21 09:10 [id number]) Discharge Planning Assessment Assigned Telegraph Messenger Debbie Meléndze RN/Voucher Examiner Advance Directives? Yes Advance Directives on File No History Provided By Patient,Medical Record Prior Living Arrangements House Household Members family Comment 20 year old son lives with her Type of transporation used prior to Drives own vehicle admit Independent with ADL's Yes Is patient alert and oriented? Yes Caregiver for Another No Barriers to Discharge No Discharge Plan Home Transportation Arrangement Family Referrals Initiated None needed Whiteboard Updated in Patient Room with Yes name and ext. # of Telegraph Messenger Review Status In Process Next Review Type Continued Stay Review Pre-Anesthesia Assessment Start: 11/12/21 07:59 Freq: Status: Active Protocol: Document 11/12/21 07:59 CAB (Rec: 11/12/21 08:09 CAB [id number]) Pre-Anesthesia Assessment Patient Information Reviewed Via Chart Review Comment COVID screen @ 11/12/21 Primary Care Provider Onur Martini Seen Specialist in Last 12 Months Yes Specialist Seen Emergency,Sales Supervisor Primary Language Slovak Computer Hardware Engineer Required No Height 5 ft 6 in Weight 244 lb Body Mass Index (BMI) 39.4 Barriers to Learning None Hx Anesthesia Reactions No Hx Family Anesthesia Reaction No Hx Malignant Hyperthermia No Hx Blood Transfusion Reaction No Anesthesia Review Requested No 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 No Hx Sleep Apnea No CPAP/BIPAP use not prescribed Currently Taking a Beta Juliet No Anti-Coagulant Therapy No Cardiac Testing No Hx Pacemaker/ICD No Pacemaker Rep Required? No Cardiac Clearance Received Not Applicable Urinary Catheter Present No Hx Urinary Self Catheterization No Diabetes No Patient No Lactating No Presence of External or Internal Medical No Devices Received a COVID vaccine? Yes Marital Status Lives With family Patient Discharge Plan Description Return Home Advance Directives? Yes
[2021-11-16 13:14] VITALS: BP 119/63; PULSE 96; RESP 18; O2SAT 97
[2021-11-16] MEDS: ACETAMINOPHEN 325 MG TABLET 650 MG PO (13:45)
== END 2021-11-16 14:59 | disposition home or self-care (01) ==
LOC: OR 08:10 → LABOR 14:11 → AC 11-16 07:00 → OR 11-16 15:44
PROVIDERS: PCP Family Medicine; Referring Provider Obstetrics & Gynecology; Visit Provider Obstetrics & Gynecology
PROC: 0UT94ZZ Resection of Uterus, Percutaneous Endoscopic Approach (ICD-10-PCS; CPT 58571; principal; 2021-11-15 09:45)
DX: N92.1 Excessive and frequent menstruation with irregular cycle (principal); N99.85 Post endometrial ablation syndrome; N72 Inflammatory disease of cervix uteri; E66.9 Obesity, unspecified; Z68.39 Body mass index [BMI] 39.0-39.9, adult
CPT/HCPCS: 58571; 36415; 85025; J0171; J0690; J1100; J2405; J2704; J2795; J3010

== ENCOUNTER 2022-01-16 14:47 | Emergency (ER) | payer OTHER, SELFPAY ==
[2021-11-15 14:09] VITALS: BMI 39.4
[2022-01-16 14:50] VITALS: BP 168/110; PULSE 80; RESP 18; TEMP 36.6; O2SAT 97; BMI 40.3
--- NOTE | 2022-01-16 15:24 | DI.RAD.S_ITS ---
PROCEDURE: XR CHEST 1V INDICATIONS: chest pain TECHNIQUE: One view of the chest was acquired. COMPARISON: [facility], , CHEST 1 VIEW, 07/13/2014, 1:03. FINDINGS: Surgical changes and devices: None. Lungs and pleura: Lungs are clear. No pleural effusions or pneumothorax. Mediastinum: Mediastinal contours appear normal. Heart size is normal. Bones and chest wall: No suspicious bony lesions. Overlying soft tissues appear unremarkable. IMPRESSION: No acute cardiopulmonary findings Approved by: Mirza Moore M.D. on 01/16/2022 at 15:04
[2022-01-16 16:04] LABS: Alanine Aminotransferase 64 IU/L (<35); Albumin 4.6 g/dL (3.5-5.0); Albumin Globulin Ratio 1.2 (1.0-2.8); Alkaline Phosphatase 82 U/L (38-126); Aspartate Aminotransferase 60 IU/L (14-36); BUN Creatinine Ratio 19.1 (6-22); Bilirubin Total 0.8 mg/dL (0.2-1.3); Blood Urea Nitrogen 18 mg/dL (7-17); Calcium 9.9 mg/dL (8.4-10.2); Carbon Dioxide 24 mmol/L (22-32); Chloride 101 mmol/L (98-107); Creatine Kinase 189 U/L (30-135); Estimated Glomerular Filt Rate > 60 mL/min (>60); Globulin 3.9 g/dL (1.7-4.1); Glucose 123 mg/dL (70-100); HEMOLYSIS 16 (0-50); Lipase 120 U/L (23-300); Magnesium 1.7 mg/dL (1.6-2.3); Potassium 4.4 mmol/L (3.4-5.1); Sodium 139 mmol/L (137-145); Total Protein 8.5 g/dL (6.3-8.2)
[2022-01-16 16:07] LABS: Add Manual Diff / Slide Review NO; Basophils Absolute Auto 0 /uL (0-100); Basophils Percent Auto 0.3 % (0-2); Eosinophils Absolute Auto 100 /uL (0-450); Eosinophils Percent Auto 1.2 % (2-4); Hematocrit 41.1 % (36-46); Hemoglobin 14.3 g/dL (12.0-16.0); Lymphocytes Absolute Auto 4800 /uL (1100-4500); Lymphocytes Percent Auto 50.3 % (25-40); Mean Corpuscular HGB Conc 34.7 % (30-36); Mean Corpuscular Hemoglobin 32.2 PG (26-34); Mean Corpuscular Volume 92.7 fL (80-100); Monocytes Absolute Auto 600 /uL (0-900); Monocytes Percent Auto 6.3 % (3-14); Neutrophils Absolute Auto 4000 /uL (1500-7000); Neutrophils Percent Auto 41.9 % (50-75); Platelet Count 194 X10^3/uL (150-400); Red Blood Cell Count 4.43 X10^6/uL (4.0-5.2); Red Cell Distribution Width 14.1 % (11.6-14.8); White Blood Cell Count 9.6 X10^3/uL (4.5-11.0)
[2022-01-16 16:16] LABS: Troponin I < 0.012 ng/mL (0.01-0.034)
[2022-01-16 16:19] LABS: CKMB % Relative Index 0.9 % (1.5-5.0); Creatine Kinase MB 1.77 ng/mL (<2.37)
--- NOTE | 2022-01-16 18:12 | ED.DIZZY ---
HPI - Dizziness <Robbie Tang PA-C - Last Filed: 01/16/22 19:39> General Chief Complaint: Dizziness Stated Complaint: Dizzy/Vomiting Time Seen by Provider: 01/16/22 16:18 Source: patient Mode of arrival: Wheelchair History of Present Illness HPI Narrative: Patient is a 56-year-old female who visited emergency room today with complaint of vertigo that started this morning as soon as she woke up. Patient states since she had a bad she felt like the room was spinning she walked into the bathroom. States that this worsened throughout the day. States that she took some Dramamine that her son had in that it did not help with the vertigo. States that the vertigo is worsened to the point where whenever she opens her eyes the room starts spinning and she feels nauseous and vomits. Denies ear pain or infection. Denies any changes in her regular activities yesterday and last night. Also denies any changes in food consumption or any medicine consumption recently. Also denies any trauma to her head. Related Data Home Medications Medication Instructions Recorded Confirmed colesevelam 625 mg tablet (WelChol) 1,250 mg PO BID 06/25/18 01/12/22 divalproex 500 mg tablet,delayed 500 mg PO BID 06/25/18 01/12/22 release (Depakote) levothyroxine 50 mcg tablet 50 mcg PO DAILY 01/03/19 01/12/22 Previous Rx's Medication Instructions Recorded acyclovir 400 mg tablet 400 mg PO BID #120 mg 12/22/16 azithromycin 250 mg tablet See Rx Instructions PO .COMPLEX #6 08/28/21 tabs alprazolam 0.5 mg tablet (Xanax) 0.5 mg PO TID #15 tabs 01/16/22 Allergies Allergy/AdvReac Type Severity Reaction Status Date / Time aspirin [ASPIRIN] Allergy Severe Anaphylaxis Verified 01/12/22 13:57 codeine [CODEINE] Allergy Severe Anaphylaxis Verified 01/12/22 13:57 ibuprofen [IBUPROFEN] Allergy Severe Anaphylaxis Verified 01/12/22 13:57 gabapentin Allergy Intermediate Hives Verified 01/12/22 13:57 lamotrigine [LAMOTRIGINE] Allergy Intermediate WELTS/ITCHI Verified 01/12/22 13:57 NG oxycodone [OXYCODONE] Allergy Intermediate ITCHING Verified 01/12/22 13:57 Penicillins [PENICILLINS] Allergy Intermediate Anaphylaxis Verified 01/12/22 13:57 Sulfa (Sulfonamide Allergy Unknown Anaphylaxis Verified 01/12/22 13:57 Antibiotics) [SULFA (SULFONAMIDE ANTIBIOTICS)] Review of Systems <Robbie Tang PA-C - Last Filed: 01/16/22 19:39> Review of Systems Narrative: R.O.S.: General: No fever, chills or fatigue. Cardiovascular: No chest pain or palpitations Respiratory: No S.O.B. HEENT: No congestion, ear pain, rhinorrhea, sore throat or tinnitus Gastrointestinal: No nausea or vomiting Skin: No rash or associated abnormalities Musculoskeletal: No pain in muscles or joints, no limitation of range of motion, no paresthesia or numbness. ?? Neurological: His vertigo and feels like the room is spinning Patient History <Robbie Tang PA-C - Last Filed: 01/16/22 19:39> Medical History (Updated 01/16/22 @ 18:13 by Robbie Tang PA-C) Infertility Surgical History (Updated 01/12/22 @ 14:14 by Ar Coronel MD) Anesthesia H/O hysterectomy for benign disease History of hand surgery History of hysteroscopy (08/26/21) History of third molar tooth extraction Status post dilation and curettage Status post laparoscopic cholecystectomy Social History household members: family Smoking Status: Never smoker alcohol intake: former Smoking Status: Never smoker Substance Use Type: does not use Exam <Robbie Tang PA-C - Last Filed: 01/16/22 19:39> Narrative Exam Narrative: Physical Exam: General: Patient is sitting upright with her eyes closed and talking in normal sentences. Well developed, well nourished, alert, and awake. Moderate distress. ? Head: Normocephalic, no lesions. ?? Eyes: PERRLA, EOM's full, conjunctivae clear. ? Ears: EAC's clear, TM's normal. ?? Throat: Clear, no exudates, no lesions. ?? Neck: Supple, no masses, no thyromegaly, no bruits. ?? Chest: Lungs clear, no rales, no rhonchi, no wheezes. ?? Heart: RR, no murmurs, no rubs, no gallops. ?? Neuro: CN2-12 intact. ?? Extremities: Warm, well perfused, FROM, no deformities, no edema, no erythema. ?? PSYCHIATRIC: The mood is good, no blunted affect. Speech is clear. Thought process is linear, thought content is appropriate. The voice is without significant inflection.. Gastrointestinal: Soft; NT; ND; Pos BS with Neg. rebound tenderness. No scars or major deformities noted on Visual Inspection. Initial Vital Signs Initial Vital Signs: Vital Signs Temperature 98 F 01/16/22 14:50 Pulse Rate 80 01/16/22 14:50 Respiratory Rate 18 01/16/22 14:50 Blood Pressure 168/110 H 01/16/22 14:50 Pulse Oximetry 97 01/16/22 14:50 Oxygen Delivery Method 01/16/22 14:50 <Torito Martinez DO - Last Filed: 01/17/22 00:36> Initial Vital Signs Initial Vital Signs: Vital Signs Temperature 98 F 01/16/22 14:50 Pulse Rate 80 01/16/22 14:50 Respiratory Rate 18 01/16/22 14:50 Blood Pressure 168/110 H 01/16/22 14:50 Pulse Oximetry 97 01/16/22 14:50 Oxygen Delivery Method 01/16/22 14:50 <Bran Evans DO - Last Filed: 01/17/22 06:58> Initial Vital Signs Initial Vital Signs: Vital Signs Temperature 98 F 01/16/22 14:50 Pulse Rate 80 01/16/22 14:50 Respiratory Rate 18 01/16/22 14:50 Blood Pressure 168/110 H 01/16/22 14:50 Pulse Oximetry 97 01/16/22 14:50 Oxygen Delivery Method 01/16/22 14:50 Course <Robbie Tang PA-C - Last Filed: 01/16/22 19:39> Orders Ordered: Discontinued Medications Alprazolam (Alprazolam 0.5 Mg Tablet) 0.5 mg PO NOW ONE Stop: 01/16/22 18:12 Last Admin: 01/16/22 18:28 Dose: 0.5 mg Documented By: OBDULIA Alprazolam (Alprazolam 0.5 Mg Tablet) 0.5 mg PO NOW ONE Stop: 01/16/22 19:23 Last Admin: 01/16/22 19:37 Dose: 0.5 mg Documented By: OBDULIA Vital Signs Vital signs: Vital Signs - 8 hr 01/16/22 14:50 Temperature 98 F Pulse Rate 80 Respiratory Rate 18 Blood Pressure 168/110 H Pulse Oximetry 97 Oxygen Delivery Method Room Air <Torito Martinez DO - Last Filed: 01/17/22 00:36> Orders Ordered: Discontinued Medications Alprazolam (Alprazolam 0.5 Mg Tablet) 0.5 mg PO NOW ONE Stop: 01/16/22 18:12 Last Admin: 01/16/22 18:28 Dose: 0.5 mg Documented By: OBDULIA Alprazolam (Alprazolam 0.5 Mg Tablet) 0.5 mg PO NOW ONE Stop: 01/16/22 19:23 Last Admin: 01/16/22 19:37 Dose: 0.5 mg Documented By: OBDULIA Vital Signs Vital signs: Vital Signs - 8 hr 01/16/22 14:50 Temperature 98 F Pulse Rate 80 Respiratory Rate 18 Blood Pressure 168/110 H Pulse Oximetry 97 Oxygen Delivery Method Room Air <Bran Evans DO - Last Filed: 01/17/22 06:58> Orders Ordered: Discontinued Medications Alprazolam (Alprazolam 0.5 Mg Tablet) 0.5 mg PO NOW ONE Stop: 01/16/22 18:12 Last Admin: 01/16/22 18:28 Dose: 0.5 mg Documented By: OBDULIA Alprazolam (Alprazolam 0.5 Mg Tablet) 0.5 mg PO NOW ONE Stop: 01/16/22 19:23 Last Admin: 01/16/22 19:37 Dose: 0.5 mg Documented By: OBDULIA Vital Signs Vital signs: Vital Signs - 8 hr 01/16/22 14:50 Temperature 98 F Pulse Rate 80 Respiratory Rate 18 Blood Pressure 168/110 H Pulse Oximetry 97 Oxygen Delivery Method Room Air MDM - Dizziness <Robbie Tang PA-C - Last Filed: 01/16/22 19:39> Lab Data Result diagrams: 01/16/22 15:56 01/16/22 15:55 Labs: Lab Results 01/16/22 01/16/22 01/16/22 Range/Units 15:03 15:55 15:56 WBC 9.6 (4.5-11.0) X10^3/uL RBC 4.43 (4.0-5.2) X10^6/uL Hgb 14.3 (12.0-16.0) g/dL Hct 41.1 (36-46) % MCV 92.7 (80-100) fL MCH 32.2 (26-34) PG MCHC 34.7 (30-36) % RDW 14.1 (11.6-14.8) % Plt Count 194 (150-400) X10^3/uL Neut % (Auto) 41.9 L (50-75) % Lymph % (Auto) 50.3 H (25-40) % [place] % (Auto) 6.3 (3-14) % Eos % (Auto) 1.2 L (2-4) % Baso % (Auto) 0.3 (0-2) % Neut # (Auto) 4000 (7896-6824) /uL Lymph # (Auto) 4800 H (6921-4669) /uL [place] # (Auto) 600 (0-900) /uL Eos # (Auto) 100 (0-450) /uL Baso # (Auto) 0 (0-100) /uL Sodium Cancelled 139 Potassium Cancelled 4.4 Chloride Cancelled 101 Carbon Dioxide Cancelled 24 BUN Cancelled 18 H Creatinine Cancelled 0.94 Estimated GFR Cancelled > 60 BUN/Creatinine Ratio Cancelled 19.1 Glucose Cancelled 123 H Calcium Cancelled 9.9 Magnesium 1.7 (1.6-2.3) mg/dL Total Bilirubin Cancelled 0.8 AST Cancelled 60 H ALT Cancelled 64 H Alkaline Phosphatase Cancelled 82 Total Creatine Kinase 189 H (30-135) U/L CK-MB (CK-2) 1.77 (<2.37) ng/mL CK-MB (CK-2) Rel Index 0.9 L (1.5-5.0) % Troponin I < 0.012 (0.01-0.034) ng/mL Total Protein Cancelled 8.5 H Albumin Cancelled 4.6 Globulin Cancelled 3.9 Albumin/Globulin Ratio Cancelled 1.2 Lipase 120 (23-300) U/L Urine RBC (0-5/HPF) Urine WBC (0-5/HPF) Ur Squamous Epith Cells (0-5/HPF) Amorphous Sediment Urine Bacteria (None) Urine Mucus (Negative) Ur Culture Indicated? 01/16/22 Range/Units 19:04 WBC (4.5-11.0) X10^3/uL RBC (4.0-5.2) X10^6/uL Hgb (12.0-16.0) g/dL Hct (36-46) % MCV (80-100) fL MCH (26-34) PG MCHC (30-36) % RDW (11.6-14.8) % Plt Count (150-400) X10^3/uL Neut % (Auto) (50-75) % Lymph % (Auto) (25-40) % [place] % (Auto) (3-14) % Eos % (Auto) (2-4) % Baso % (Auto) (0-2) % Neut # (Auto) (1376-0356) /uL Lymph # (Auto) (9314-0587) /uL [place] # (Auto) (0-900) /uL Eos # (Auto) (0-450) /uL Baso # (Auto) (0-100) /uL Sodium Potassium Chloride Carbon Dioxide BUN Creatinine Estimated GFR BUN/Creatinine Ratio Glucose Calcium Magnesium (1.6-2.3) mg/dL Total Bilirubin AST ALT Alkaline Phosphatase Total Creatine Kinase (30-135) U/L CK-MB (CK-2) (<2.37) ng/mL CK-MB (CK-2) Rel Index (1.5-5.0) % Troponin I (0.01-0.034) ng/mL Total Protein Albumin Globulin Albumin/Globulin Ratio Lipase (23-300) U/L Urine RBC 5-10/hpf H (0-5/HPF) Urine WBC 1-5/hpf (0-5/HPF) Ur Squamous Epith Cells 1-5 /hpf (0-5/HPF) Amorphous Sediment 1+ Urine Bacteria Few (2-10) H (None) Urine Mucus 1+ H (Negative) Ur Culture Indicated? Culture not indicate Urine Dip Bedside Urine Glucose Negative Bedside Urine Bilirubin - Negative Bedside Urine Ketone + 15 Urine Specific [place] 1.020 Bedside Urine Occult Blood +++ Bedside Urine pH 6.0 Bedside Urine Protein +/- 15 Bedside Urine Urobilinogen - Negative Bedside Urine Nitrite - Negative Bedside Urine Leukocytes +/- 15 Esterase MDM Narrative Medical decision making narrative: Patient is a 56-year-old female presents to the emergency room today with complaint of vertigo it started as soon as she woke up this morning. Upon physical examination I was not able to clearly reproduce the vertigo or stop it. Suspicion was that the patient could be having a posterior circulation stroke. CTA of the head and neck was ordered and patient refused. I discussed the concerns of a posterior circulation stroke and advised the patient of the serious concerns and consequences that could be result of her having a posterior circulation stroke and taking medications that could mask symptoms at this time. Patient advised to emergently return to the emergency room should any signs of symptoms of the stroke returned. Patient agrees with plan. <Torito Martinez, DO - Last Filed: 01/17/22 00:36> Lab Data Labs: Lab Results 01/16/22 01/16/22 01/16/22 Range/Units 15:03 15:55 15:56 WBC 9.6 (4.5-11.0) X10^3/uL RBC 4.43 (4.0-5.2) X10^6/uL Hgb 14.3 (12.0-16.0) g/dL Hct 41.1 (36-46) % MCV 92.7 (80-100) fL MCH 32.2 (26-34) PG MCHC 34.7 (30-36) % RDW 14.1 (11.6-14.8) % Plt Count 194 (150-400) X10^3/uL Neut % (Auto) 41.9 L (50-75) % Lymph % (Auto) 50.3 H (25-40) % [place] % (Auto) 6.3 (3-14) % Eos % (Auto) 1.2 L (2-4) % Baso % (Auto) 0.3 (0-2) % Neut # (Auto) 4000 (8365-0216) /uL Lymph # (Auto) 4800 H (6515-9201) /uL [place] # (Auto) 600 (0-900) /uL Eos # (Auto) 100 (0-450) /uL Baso # (Auto) 0 (0-100) /uL Sodium Cancelled 139 Potassium Cancelled 4.4 Chloride Cancelled 101 Carbon Dioxide Cancelled 24 BUN Cancelled 18 H Creatinine Cancelled 0.94 Estimated GFR Cancelled > 60 BUN/Creatinine Ratio Cancelled 19.1 Glucose Cancelled 123 H Calcium Cancelled 9.9 Magnesium 1.7 (1.6-2.3) mg/dL Total Bilirubin Cancelled 0.8 AST Cancelled 60 H ALT Cancelled 64 H Alkaline Phosphatase Cancelled 82 Total Creatine Kinase 189 H (30-135) U/L CK-MB (CK-2) 1.77 (<2.37) ng/mL CK-MB (CK-2) Rel Index 0.9 L (1.5-5.0) % Troponin I < 0.012 (0.01-0.034) ng/mL Total Protein Cancelled 8.5 H Albumin Cancelled 4.6 Globulin Cancelled 3.9 Albumin/Globulin Ratio Cancelled 1.2 Lipase 120 (23-300) U/L Urine RBC (0-5/HPF) Urine WBC (0-5/HPF) Ur Squamous Epith Cells (0-5/HPF) Amorphous Sediment Urine Bacteria (None) Urine Mucus (Negative) Ur Culture Indicated? 01/16/22 Range/Units 19:04 WBC (4.5-11.0) X10^3/uL RBC (4.0-5.2) X10^6/uL Hgb (12.0-16.0) g/dL Hct (36-46) % MCV (80-100) fL MCH (26-34) PG MCHC (30-36) % RDW (11.6-14.8) % Plt Count (150-400) X10^3/uL Neut % (Auto) (50-75) % Lymph % (Auto) (25-40) % [place] % (Auto) (3-14) % Eos % (Auto) (2-4) % Baso % (Auto) (0-2) % Neut # (Auto) (5680-8087) /uL Lymph # (Auto) (3923-5666) /uL [place] # (Auto) (0-900) /uL Eos # (Auto) (0-450) /uL Baso # (Auto) (0-100) /uL Sodium Potassium Chloride Carbon Dioxide BUN Creatinine Estimated GFR BUN/Creatinine Ratio Glucose Calcium Magnesium (1.6-2.3) mg/dL Total Bilirubin AST ALT Alkaline Phosphatase Total Creatine Kinase (30-135) U/L CK-MB (CK-2) (<2.37) ng/mL CK-MB (CK-2) Rel Index (1.5-5.0) % Troponin I (0.01-0.034) ng/mL Total Protein Albumin Globulin Albumin/Globulin Ratio Lipase (23-300) U/L Urine RBC 5-10/hpf H (0-5/HPF) Urine WBC 1-5/hpf (0-5/HPF) Ur Squamous Epith Cells 1-5 /hpf (0-5/HPF) Amorphous Sediment 1+ Urine Bacteria Few (2-10) H (None) Urine Mucus 1+ H (Negative) Ur Culture Indicated? Culture not indicate Urine Dip Bedside Urine Glucose Negative Bedside Urine Bilirubin - Negative Bedside Urine Ketone + 15 Urine Specific [place] 1.020 Bedside Urine Occult Blood +++ Bedside Urine pH 6.0 Bedside Urine Protein +/- 15 Bedside Urine Urobilinogen - Negative Bedside Urine Nitrite - Negative Bedside Urine Leukocytes +/- 15 Esterase <Bran Evans, - Last Filed: 01/17/22 06:58> Lab Data Labs: Lab Results 01/16/22 01/16/22 01/16/22 Range/Units 15:03 15:55 15:56 WBC 9.6 (4.5-11.0) X10^3/uL RBC 4.43 (4.0-5.2) X10^6/uL Hgb 14.3 (12.0-16.0) g/dL Hct 41.1 (36-46) % MCV 92.7 (80-100) fL MCH 32.2 (26-34) PG MCHC 34.7 (30-36) % RDW 14.1 (11.6-14.8) % Plt Count 194 (150-400) X10^3/uL Neut % (Auto) 41.9 L (50-75) % Lymph % (Auto) 50.3 H (25-40) % [place] % (Auto) 6.3 (3-14) % Eos % (Auto) 1.2 L (2-4) % Baso % (Auto) 0.3 (0-2) % Neut # (Auto) 4000 (2871-2310) /uL Lymph # (Auto) 4800 H (7976-9554) /uL [place] # (Auto) 600 (0-900) /uL Eos # (Auto) 100 (0-450) /uL Baso # (Auto) 0 (0-100) /uL Sodium Cancelled 139 Potassium Cancelled 4.4 Chloride Cancelled 101 Carbon Dioxide Cancelled 24 BUN Cancelled 18 H Creatinine Cancelled 0.94 Estimated GFR Cancelled > 60 BUN/Creatinine Ratio Cancelled 19.1 Glucose Cancelled 123 H Calcium Cancelled 9.9 Magnesium 1.7 (1.6-2.3) mg/dL Total Bilirubin Cancelled 0.8 AST Cancelled 60 H ALT Cancelled 64 H Alkaline Phosphatase Cancelled 82 Total Creatine Kinase 189 H (30-135) U/L CK-MB (CK-2) 1.77 (<2.37) ng/mL CK-MB (CK-2) Rel Index 0.9 L (1.5-5.0) % Troponin I < 0.012 (0.01-0.034) ng/mL Total Protein Cancelled 8.5 H Albumin Cancelled 4.6 Globulin Cancelled 3.9 Albumin/Globulin Ratio Cancelled 1.2 Lipase 120 (23-300) U/L Urine RBC (0-5/HPF) Urine WBC (0-5/HPF) Ur Squamous Epith Cells (0-5/HPF) Amorphous Sediment Urine Bacteria (None) Urine Mucus (Negative) Ur Culture Indicated? 01/16/22 Range/Units 19:04 WBC (4.5-11.0) X10^3/uL RBC (4.0-5.2) X10^6/uL Hgb (12.0-16.0) g/dL Hct (36-46) % MCV (80-100) fL MCH (26-34) PG MCHC (30-36) % RDW (11.6-14.8) % Plt Count (150-400) X10^3/uL Neut % (Auto) (50-75) % Lymph % (Auto) (25-40) % [place] % (Auto) (3-14) % Eos % (Auto) (2-4) % Baso % (Auto) (0-2) % Neut # (Auto) (9198-5384) /uL Lymph # (Auto) (2592-1981) /uL [place] # (Auto) (0-900) /uL Eos # (Auto) (0-450) /uL Baso # (Auto) (0-100) /uL Sodium Potassium Chloride Carbon Dioxide BUN Creatinine Estimated GFR BUN/Creatinine Ratio Glucose Calcium Magnesium (1.6-2.3) mg/dL Total Bilirubin AST ALT Alkaline Phosphatase Total Creatine Kinase (30-135) U/L CK-MB (CK-2) (<2.37) ng/mL CK-MB (CK-2) Rel Index (1.5-5.0) % Troponin I (0.01-0.034) ng/mL Total Protein Albumin Globulin Albumin/Globulin Ratio Lipase (23-300) U/L Urine RBC 5-10/hpf H (0-5/HPF) Urine WBC 1-5/hpf (0-5/HPF) Ur Squamous Epith Cells 1-5 /hpf (0-5/HPF) Amorphous Sediment 1+ Urine Bacteria Few (2-10) H (None) Urine Mucus 1+ H (Negative) Ur Culture Indicated? Culture not indicate Urine Dip Bedside Urine Glucose Negative Bedside Urine Bilirubin - Negative Bedside Urine Ketone + 15 Urine Specific [place] 1.020 Bedside Urine Occult Blood +++ Bedside Urine pH 6.0 Bedside Urine Protein +/- 15 Bedside Urine Urobilinogen - Negative Bedside Urine Nitrite - Negative Bedside Urine Leukocytes +/- 15 Esterase Discharge Plan Departure Patient Disposition: Home Clinical Impression: Vertigo Activity Restrictions/Additional Instructions: *You have been diagnosed with vertigo. As we discussed we have concerns with him possibly having a posterior circulation stroke. I suggest you take the medications as ordered but please return to the emergency room should any emergent concerns arise. Also returned if your vertigo returns. *What to do: *Please continue to take your regular medications as directed. [ ] New medication prescriptions sent to your pharmacy: [ ] [x] New medication written as a paper prescription [ ] No new medications given *Please follow up with your primary care provider in 2-3 days, call for an appointment. Let them know you were seen in the Emergency Department and that we ask that you be seen in follow up. We will electronically transmit a record of today's note if your PCP is in our system *If you do not have a primary care provider please contact the [facility] Resource line at [phone]. They will ask some questions about your medical history and help get you set up with a doctor in the community. *Return to Emergency Department if you should have any new, worsening or concerning symptoms, such as [fever greater than 101 F, shaking chills, worsening pain, persistent vomiting or other bothersome symptoms] Prescriptions: New alprazolam [Xanax] 0.5 mg tablet 0.5 mg PO TID Qty: 15 0RF No Action acyclovir 400 MG tablet 400 mg PO BID Qty: 120 4RF colesevelam [WelChol] 625 mg tablet 1,250 mg PO BID divalproex [Depakote] 500 mg tablet,delayed release (DR/EC) 500 mg PO BID levothyroxine 50 mcg Tablet 50 mcg PO DAILY azithromycin 250 mg tablet See Rx Instructions .ROUTE .COMPLEX Qty: 6 0RF Rx Instructions: For 250 mg dose pack: take 500 mg today (day 1), then 250 mg for 4 days (days 2-5) Referrals: Onur Martini MD [Primary Care Provider] - Visit Report Forms: Patient Portal/API <Torito Martinez DO - Last Filed: 01/17/22 00:36> [facility] ED Attending Yenifer Attestation: I was immediately available in the department for consultation. Documentation has been reviewed. I agree with assessment and plan. <Bran Evans DO - Last Filed: 01/17/22 06:58> [facility]enifer Attestation: Dr Evans Co-Sign Statement: I was available for consultation during this patient's emergency department visit. This chart is signed by myself for administrative purposes only. I did not have direct contact with this patient during this visit. They were seen independently by the APC.
[2022-01-16] MEDS: ALPRAZolam 0.5 MG TABLET PO ×2 (18:28→19:37)
--- NOTE | 2022-01-16 19:13 | PC.NURSE ---
pt called, requesting to leave due to reduction of symptoms. pt up to br, -dizziness. reports feeling a lot better. provider notified.
--- NOTE | 2022-01-16 19:21 | PC.NURSE ---
provider at bedside for re-eval
[2022-01-16 19:28] LABS: Amorphous Sediment Urine 1+; Bacteria Urine Few (2-10); Mucus Urine 1+ (Negative); RBC Urine 5-10/HPF (0-5/HPF); Squamous Epithelial Cell Urine 1-5 /HPF (0-5/HPF); WBC Urine 1-5/HPF (0-5/HPF)
== END 2022-01-16 19:38 | disposition home or self-care (01) ==
PROVIDERS: Emergency Medicine; Emergency Provider Physician Assistant; PCP Family Medicine
DX: R42 Dizziness and giddiness (principal); R11.2 Nausea with vomiting, unspecified; R07.9 Chest pain, unspecified
CPT/HCPCS: 36415; 71045; 80053; 81003; 81015; 82550; 82553; 83690; 83735; 84484; 85025; 87086; 93005; 93010; 99284

== ENCOUNTER → 2022-03-17 11:11 | Outpatient (CLI) | payer OTHER, SELFPAY ==
[2021-11-15 14:09] VITALS: BMI 39.4
--- NOTE | 2022-03-17 | DI.MG.S_ITS ---
BILATERAL DIGITAL SCREENING MAMMOGRAM 3D/2D WITH CAD: 03/17/2022 CLINICAL: Routine screening. Comparison is made to exams dated: 08/27/2020 mammogram, 10/12/2018 mammogram, 09/22/2018 mammogram, and 08/17/2016 mammogram - . There are scattered areas of fibroglandular density in both breasts (category b / 25%-50% glandular tissue). Current study was also evaluated with a Computer Aided Detection (CAD) system. No significant masses, calcifications, or other findings are seen in either breast. There has been no significant interval change. IMPRESSION: NEGATIVE There is no mammographic evidence of malignancy. A 1 year screening mammogram is recommended. Based on the Tyrer Cuzick model (a risk assessment model) the patient's lifetime risk is 7.1% and her 10 year risk is 2.1%. According to the ACR, ACS, and NCCN guidelines, an annual breast MRI exam along with mammogram is recommended if the patient's lifetime risk is 20% or greater. This exam was interpreted at Station ID: [id number]. NOTE: For mammograms, a report in lay terms will be sent to the patient. Approximately 15% of breast malignancies will not be visualized mammographically. In the management of a palpable breast mass, a negative mammogram must not discourage biopsy of a clinically suspicious lesion. Electronically Signed By: True [email or web address]/[email or web address]:03/17/2022 14:34:55 copy to: Onur Martini letter sent: Normal Exam ACR BI-RADS Category 1: Negative [id number]
== END ==
PROVIDERS: PCP Family Medicine; Referring Provider Family Medicine; Visit Provider Family Medicine
DX: Z12.31 Encounter for screening mammogram for malignant neoplasm of breast (principal)
CPT/HCPCS: 77063; 77067

== ENCOUNTER 2023-02-22 16:03 | Emergency (ER) | payer OTHER, SELFPAY ==
[2021-11-15 14:09] VITALS: BMI 39.4
[2023-02-22] VITALS (9 sets, daily range): BP systolic 120–166; BP diastolic 65–87; PULSE 86–95; RESP 16–20; TEMP 36.7; O2SAT 94–98; BMI 36.3
[2023-02-22 17:27] LABS: Alanine Aminotransferase 56 IU/L (<35); Albumin 4.4 g/dL (3.5-5.0); Albumin Globulin Ratio 1.1 (1.0-2.8); Alkaline Phosphatase 84 U/L (38-126); Aspartate Aminotransferase 59 IU/L (14-36); BUN Creatinine Ratio 14.7 (6-22); Bilirubin Total 0.5 mg/dL (0.2-1.3); Blood Urea Nitrogen 14 mg/dL (7-17); Calcium 9.8 mg/dL (8.4-10.2); Carbon Dioxide 24 mmol/L (22-32); Chloride 103 mmol/L (98-107); Estimated Glomerular Filt Rate > 60 mL/min (>60); Glucose 110 mg/dL (70-100); HEMOLYSIS 33 (0-50); Lipase 81 U/L (23-300); Potassium 4.3 mmol/L (3.4-5.1); Sodium 139 mmol/L (137-145); Total Protein 8.4 g/dL (6.3-8.2)
[2023-02-22 18:09] LABS: Add Manual Diff / Slide Review NO; Basophils Absolute Auto 100 /uL (0-100); Basophils Percent Auto 0.7 % (0-2); Eosinophils Absolute Auto 100 /uL (0-450); Eosinophils Percent Auto 1.5 % (2-4); Hematocrit 42.5 % (36-46); Hemoglobin 14.5 g/dL (12.0-16.0); Lymphocytes Absolute Auto 2300 /uL (1100-4500); Lymphocytes Percent Auto 24.1 % (25-40); Mean Corpuscular HGB Conc 34.2 % (30-36); Mean Corpuscular Hemoglobin 31.9 PG (26-34); Mean Corpuscular Volume 93.2 fL (80-100); Monocytes Absolute Auto 800 /uL (0-900); Monocytes Percent Auto 7.9 % (3-14); Neutrophils Absolute Auto 6400 /uL (1500-7000); Neutrophils Percent Auto 65.8 % (50-75); Platelet Count 188 X10^3/uL (150-400); Red Blood Cell Count 4.56 X10^6/uL (4.0-5.2); Red Cell Distribution Width 13.7 % (11.6-14.8); White Blood Cell Count 9.7 X10^3/uL (4.5-11.0)
[2023-02-22] MEDS: ONDANSETRON 4 MG/2 ML INJ IV (19:41)
[2023-02-22] MEDS: SODIUM CHLORIDE 0.9% 1,000 ML 1000 ML IV (19:41)
--- NOTE | 2023-02-22 20:04 | ED.GENADULT ---
HPI - General Adult General Chief complaint: Abdominal Pain Stated complaint: extreme stomach pain/fever?/diarrhea Time Seen by Provider: 02/22/23 18:03 Source: patient Mode of arrival: Ambulatory History of Present Illness HPI narrative: Patient is a 57-year-old female who is here for evaluation of stomach pain, fevers and diarrhea. No recent travel. No recent antibiotics. She states that about 10 days ago she started to have symptoms that brought her into the emergency department today however they only lasted about 3 days and then completely resolved. About 1 week later her symptoms started to come back again and she now has had symptoms for the past several days. She states that every time she tries to eat or drink anything she gets extreme pain and then she goes and has an episode of diarrhea. No blood in her stool. No abdominal distention. No urinary symptoms. No blood in her urine. No vaginal bleeding. She has tried Imodium without any improvement. Related Data Home Medications Medication Instructions Recorded Confirmed levothyroxine 50 mcg tablet 50 mcg PO DAILY 01/03/19 01/12/22 Previous Rx's Medication Instructions Recorded alprazolam 0.5 mg tablet (Xanax) 0.5 mg PO TID #15 tabs 01/16/22 ciprofloxacin HCl 500 mg tablet 500 mg PO BID 5 days #10 tabs 02/22/23 (Cipro) Allergies Allergy/AdvReac Type Severity Reaction Status Date / Time aspirin [ASPIRIN] Allergy Severe Anaphylaxis Verified 02/22/23 16:51 codeine [CODEINE] Allergy Severe Anaphylaxis Verified 02/22/23 16:51 ibuprofen [IBUPROFEN] Allergy Severe Anaphylaxis Verified 02/22/23 16:51 gabapentin Allergy Intermediate Hives Verified 02/22/23 16:51 lamotrigine [LAMOTRIGINE] Allergy Intermediate WELTS/ITCHI Verified 02/22/23 16:51 NG oxycodone [OXYCODONE] Allergy Intermediate ITCHING Verified 02/22/23 16:51 Penicillins [PENICILLINS] Allergy Intermediate Anaphylaxis Verified 02/22/23 16:51 Sulfa (Sulfonamide Allergy Unknown Anaphylaxis Verified 02/22/23 16:51 Antibiotics) [SULFA (SULFONAMIDE ANTIBIOTICS)] Review of Systems Constitutional Constitutional: Reports system reviewed and no additional complaints, except as documented Cardiovascular Cardiovascular: Reports system reviewed and no additional complaints, except as documented Respiratory Respiratory: Reports system reviewed and no additional complaints, except as documented Gastrointestinal Gastrointestinal: Reports system reviewed and no additional complaints, except as documented Genitourinary Genitourinary: Reports system reviewed and no additional complaints, except as documented Integumentary/Breasts Skin/Breast: Reports system reviewed and no additional complaints, except as documented Patient History Medical History Infertility Surgical History Anesthesia H/O hysterectomy for benign disease History of hand surgery History of hysteroscopy (08/26/21) History of third molar tooth extraction Status post dilation and curettage Status post laparoscopic cholecystectomy Social History household members: family Smoking Status: Never smoker alcohol intake: former Smoking Status: Never smoker Substance Use Type: does not use Exam Initial Vital Signs Initial Vital Signs: Vital Signs Temperature 98.1 F 02/22/23 16:45 Pulse Rate 95 H 02/22/23 16:45 Respiratory Rate 20 02/22/23 16:45 Blood Pressure 125/78 02/22/23 16:45 Pulse Oximetry 97 02/22/23 16:45 Oxygen Delivery Method Room Air 02/22/23 16:45 HENMT Head: normal to inspection and normocephalic Resp Effort & Inspection: normal respiratory effort Auscultation: clear to auscultation bilaterally Cardio Rate: regular rate Rhythm: regular rhythm GI Inspection: normal to inspection and non-distended Palpation: soft, No firm, No guarding and tender Skin General: no rashes or lesions noted Neuro General: patient alert, patient awake and moves all extremities Extrem General: capillary refill normal Course Orders Ordered: ED Orders 02/22/23 17:00 Comprehensive Metabolic Panel Stat Lipase Stat 02/22/23 17:02 EKG-12 Lead Stat 02/22/23 17:40 Complete Blood Count AUTO DIFF Stat 02/22/23 20:04 CT abdomen pelvis w con Stat 02/22/23 21:29 GI Panel (Film Array) Stat Test Urine Stat Urine Culture Stat 02/22/23 21:42 Urine Microscopic Stat Discontinued Medications Acetaminophen (Acetaminophen 325 Mg Tablet) 650 mg PO NOW ONE Stop: 02/22/23 22:20 Last Admin: 02/22/23 22:27 Dose: 650 mg Documented By: SB Sodium Chloride (Normal Saline 0.9%) 1,000 mls @ 1,000 mls/hr IV BOLUS ONE Stop: 02/22/23 20:28 Last Infusion: 02/22/23 20:34 Dose: Infused Documented By: Admin: 02/22/23 19:41 Dose: 1,000 mls/hr Documented By: DEVYN Ondansetron HCl (Ondansetron 4 Mg/2 Ml Inj) 4 mg IV NOW PRN PRN Reason: Nausea And Vomiting Last Admin: 02/22/23 19:41 Dose: 4 mg Documented By: DEVYN Ondansetron HCl (Ondansetron 4 Mg Odt) 4 mg PO NOW PRN PRN Reason: Nausea And Vomiting Vital Signs Vital signs: Vital Signs - 8 hr 02/22/23 16:45 02/22/23 21:34 02/22/23 21:34 Temperature 98.1 F Pulse Rate 95 H 86 Respiratory Rate 20 16 Blood Pressure 125/78 139/73 Pulse Oximetry 97 95 Oxygen Delivery Method Room Air 02/22/23 22:00 02/22/23 22:01 02/22/23 22:01 Temperature Pulse Rate 88 88 Respiratory Rate Blood Pressure 166/87 H Pulse Oximetry 98 97 Oxygen Delivery Method Room Air 02/22/23 22:30 02/22/23 22:30 02/22/23 23:00 Temperature Pulse Rate 90 91 H Respiratory Rate Blood Pressure 150/80 H Pulse Oximetry 97 95 Oxygen Delivery Method Room Air 02/22/23 23:12 02/22/23 23:12 02/22/23 23:30 Temperature Pulse Rate 90 88 Respiratory Rate 18 Blood Pressure 120/65 Pulse Oximetry 94 94 Oxygen Delivery Method 02/22/23 23:30 02/22/23 23:44 Temperature Pulse Rate 90 Respiratory Rate Blood Pressure 120/73 120/73 Pulse Oximetry 94 Oxygen Delivery Method Room Air Medical Decision Making Lab Data Lab results reviewed: Yes I reviewed the patient's lab results. 02/22/23 17:40 02/22/23 17:00 Labs: Lab Results 02/22/23 02/22/23 02/22/23 Range/Units 17:00 17:40 21:29 WBC 9.7 (4.5-11.0) X10^3/uL RBC 4.56 (4.0-5.2) X10^6/uL Hgb 14.5 (12.0-16.0) g/dL Hct 42.5 (36-46) % MCV 93.2 (80-100) fL MCH 31.9 (26-34) PG MCHC 34.2 (30-36) % RDW 13.7 (11.6-14.8) % Plt Count 188 (150-400) X10^3/uL Neut % (Auto) 65.8 (50-75) % Lymph % (Auto) 24.1 L (25-40) % [place] % (Auto) 7.9 (3-14) % Eos % (Auto) 1.5 L (2-4) % Baso % (Auto) 0.7 (0-2) % Neut # (Auto) 6400 (0328-7151) /uL Lymph # (Auto) 2300 (9639-0321) /uL [place] # (Auto) 800 (0-900) /uL Eos # (Auto) 100 (0-450) /uL Baso # (Auto) 100 (0-100) /uL Sodium 139 (137-145) mmol/L Potassium 4.3 (3.4-5.1) mmol/L Chloride 103 (98-107) mmol/L Carbon Dioxide 24 (22-32) mmol/L BUN 14 (7-17) mg/dL Creatinine 0.95 (0.52-1.04) mg/dL Estimated GFR > 60 (>60) mL/min BUN/Creatinine Ratio 14.7 (6-22) Glucose 110 H (70-100) mg/dL Calcium 9.8 (8.4-10.2) mg/dL Total Bilirubin 0.5 (0.2-1.3) mg/dL AST 59 H (14-36) IU/L ALT 56 H (<35) IU/L Alkaline Phosphatase 84 (38-126) U/L Total Protein 8.4 H (6.3-8.2) g/dL Albumin 4.4 (3.5-5.0) g/dL Globulin 4.0 (1.7-4.1) g/dL Albumin/Globulin Ratio 1.1 (1.0-2.8) Lipase 81 (23-300) U/L Urine RBC (0-5/HPF) Urine WBC (0-5/HPF) Ur Squamous Epith Cells (0-5/HPF) Urine Bacteria (None) Urine Mucus (Negative) Urine Test Negative (Negative) Stl C. cayetanensis PCR Not detected (Not Detect) Stool Rotavirus (PCR) Not detected (Not Detect) Stool Adenovirus (PCR) Not detected (Not Detect) Stool Astrovirus (PCR) Not detected (Not Detect) Stool Cryptosporidium PCR Not detected (Not Detect) Stl E.coli Shiga Tox PCR Not detected (Not Detect) St Sh/Enteroin Ecoli PCR Not detected (Not Detect) Stl Enterotoxigenic E PCR Not detected (Not Detect) Stool EPEC (PCR) Detected (Not Detect) Stl E. histolytica PCR Not detected (Not Detect) Stool Giardia Lamblia PCR Not detected (Not Detect) Stool Sapovirus (PCR) Not detected (Not Detect) Stl P. shigelloides PCR Not detected (Not Detect) St Y.enterocolitica PCR Not detected (Not Detect) Stool Vibrio (PCR) Not detected (Not Detect) Stl Vibrio cholerae PCR Not detected (Not Detect) Stl Enteroaggr Ecoli PCR Not detected (Not Detect) Stl Norovirus GI/GII PCR Not detected (Not Detect) Campylobacter (PCR) Not detected (Not Detect) C. difficile Tox (PCR) Not detected (Not Detect) Salmonella (PCR) Not detected (Not Detect) 02/22/23 Range/Units 21:42 WBC (4.5-11.0) X10^3/uL RBC (4.0-5.2) X10^6/uL Hgb (12.0-16.0) g/dL Hct (36-46) % MCV (80-100) fL MCH (26-34) PG MCHC (30-36) % RDW (11.6-14.8) % Plt Count (150-400) X10^3/uL Neut % (Auto) (50-75) % Lymph % (Auto) (25-40) % [place] % (Auto) (3-14) % Eos % (Auto) (2-4) % Baso % (Auto) (0-2) % Neut # (Auto) (1340-3888) /uL Lymph # (Auto) (6820-7525) /uL [place] # (Auto) (0-900) /uL Eos # (Auto) (0-450) /uL Baso # (Auto) (0-100) /uL Sodium (137-145) mmol/L Potassium (3.4-5.1) mmol/L Chloride (98-107) mmol/L Carbon Dioxide (22-32) mmol/L BUN (7-17) mg/dL Creatinine (0.52-1.04) mg/dL Estimated GFR (>60) mL/min BUN/Creatinine Ratio (6-22) Glucose (70-100) mg/dL Calcium (8.4-10.2) mg/dL Total Bilirubin (0.2-1.3) mg/dL AST (14-36) IU/L ALT (<35) IU/L Alkaline Phosphatase (38-126) U/L Total Protein (6.3-8.2) g/dL Albumin (3.5-5.0) g/dL Globulin (1.7-4.1) g/dL Albumin/Globulin Ratio (1.0-2.8) Lipase (23-300) U/L Urine RBC 0-1/hpf (0-5/HPF) Urine WBC 5-10/hpf H (0-5/HPF) Ur Squamous Epith Cells 1-5 /hpf (0-5/HPF) Urine Bacteria Few (2-10) H (None) Urine Mucus 1+ H (Negative) Urine Test (Negative) Stl C. cayetanensis PCR (Not Detect) Stool Rotavirus (PCR) (Not Detect) Stool Adenovirus (PCR) (Not Detect) Stool Astrovirus (PCR) (Not Detect) Stool Cryptosporidium PCR (Not Detect) Stl E.coli Shiga Tox PCR (Not Detect) St Sh/Enteroin Ecoli PCR (Not Detect) Stl Enterotoxigenic E PCR (Not Detect) Stool EPEC (PCR) (Not Detect) Stl E. histolytica PCR (Not Detect) Stool Giardia Lamblia PCR (Not Detect) Stool Sapovirus (PCR) (Not Detect) Stl P. shigelloides PCR (Not Detect) St Y.enterocolitica PCR (Not Detect) Stool Vibrio (PCR) (Not Detect) Stl Vibrio cholerae PCR (Not Detect) Stl Enteroaggr Ecoli PCR (Not Detect) Stl Norovirus GI/GII PCR (Not Detect) Campylobacter (PCR) (Not Detect) C. difficile Tox (PCR) (Not Detect) Salmonella (PCR) (Not Detect) Urine Dip Bedside Urine Glucose Negative Bedside Urine Bilirubin - Negative Bedside Urine Ketone - Negative Urine Specific [place] 1.030 Bedside Urine Occult Blood - Negative Bedside Urine pH 6.0 Bedside Urine Protein - Negative Bedside Urine Urobilinogen - Negative Bedside Urine Nitrite - Negative Bedside Urine Leukocytes +/- 15 Esterase Point of care testing: Urine Dip Bedside Urine Glucose Negative Bedside Urine Bilirubin - Negative Bedside Urine Ketone - Negative Urine Specific [place] 1.030 Bedside Urine Occult Blood - Negative Bedside Urine pH 6.0 Bedside Urine Protein - Negative Bedside Urine Urobilinogen - Negative Bedside Urine Nitrite - Negative Bedside Urine Leukocytes +/- [address] scan - abdomen/pelvis: Radiologist's Impression: PROCEDURE: CT ABDOMEN PELVIS W CON INDICATIONS: abd pain and diarrhea TECHNIQUE: After the administration of intravenous contrast, axial sections acquired from the lung bases to the pubic symphysis. Coronal and sagittal reformats were performed. For radiation dose reduction, the following was used: automated exposure control, adjustment of mA and/or kV according to patient size. COMPARISON: [facility], CT, ABDOMEN/PELVIS WITH CONTRAST, 06/05/2017, 19:45. FINDINGS: Image quality: Excellent. Lung bases: Clear lung bases. Small hiatal hernia. Heart: No significant findings. ABDOMEN: Liver: Mild hepatomegaly and hepatic steatosis. Gallbladder: Surgically absent gallbladder. Biliary ducts: Mild central intrahepatic and moderate extrahepatic biliary dilatation. Pancreas: Unremarkable. Spleen: Unremarkable. Adrenal Glands: Unremarkable. Kidneys and Ureters: Symmetric enhancement. No nephrolithiasis or hydronephrosis. No hydroureter. Stomach and Bowel: Diverticulosis present throughout the colon. There is a moderate length segment of circumferential wall thickening and more focal pericolonic inflammation involving the colon at the hepatic flexure and extending slightly into the transverse colon. There is mild pericolonic inflammation involving a long segment of the descending colon. The rectum is decompressed. There are no focal fluid collections or extraluminal gas. There is a normal appendix. Normal small bowel loops and decompressed stomach. Peritoneum: No abnormal intraperitoneal fluid. No free air. Ventral Wall: No hernias. Abdominal Nodes: No retroperitoneal or mesenteric adenopathy by size criteria. Vessels: Aorta and inferior vena cava are normal in size. PELVIS: Pelvic Organs: Absent uterus. No suspicious adnexal masses. Bladder: Unremarkable. Pelvic Nodes: No enlarged lymph nodes. Miscellaneous: No hernias are seen. Bones: Unremarkable. IMPRESSION: 1. Findings of mild acute colitis involving the ascending, transverse, and descending colon. Etiology is most likely infectious or inflammatory. Although there is extensive colonic diverticulosis, diverticulitis is unlikely due to diffuse nature of inflammation. 2. Mild hepatomegaly and hepatic steatosis. ECG Data Attestation: I personally reviewed and interpreted this ECG as follows: Interpretation: Sinus rhythm Ventricular rate is [address] T wave changes MDM Narrative Medical decision making narrative: CT scan shows colitis and her stool sample was positive for enteropathogenic E coli. She is afebrile here. No indication for admission to the hospital. This should be a self-limiting process. No indication for surgical consultation. She is not been traveling. No recent antibiotics. The plan will be is to print a prescription for antibiotics to give to her. Advised that she waits a couple more days and if her symptoms do not start to improve then she can start taking the antibiotics. She was given return precautions. She expressed understanding and agreement with plan. Discharge Plan Departure Patient Disposition: Home Clinical Impression: Colitis due to enteropathogenic Escherichia coli Instructions: Diarrhea, DI for Colitis Activity Restrictions/Additional Instructions: I do recommend that you try to increase your fluid intake. This is best done by drinking small amounts more frequently. I do recommend that you hold on filling the antibiotics for the next several days. If it gets to be 1 week of symptoms without any improvement then you can start taking the antibiotics as directed. Contact your primary doctor for follow-up. Return to the emergency department for new symptoms. Prescriptions: New ciprofloxacin HCl [Cipro] 500 mg tablet 500 mg PO BID 5 Days Qty: 10 0RF No Action levothyroxine 50 mcg Tablet 50 mcg PO DAILY alprazolam [Xanax] 0.5 mg tablet 0.5 mg PO TID Qty: 15 0RF Referrals: Onur Martini MD [Primary Care Provider] - Stand Alone Forms: Patient Portal/API
[2023-02-22 21:58] LABS: Bacteria Urine Few (2-10); RBC Urine 0-1/HPF (0-5/HPF); Squamous Epithelial Cell Urine 1-5 /HPF (0-5/HPF)
[2023-02-22 21:59] LABS: Mucus Urine 1+ (Negative); WBC Urine 5-10/HPF (0-5/HPF)
[2023-02-22 22:26] LABS: Pregnancy Test Urine Negative (Negative)
[2023-02-22] MEDS: ACETAMINOPHEN 325 MG TABLET 650 MG PO (22:27)
[2023-02-22 22:59] LABS: Adenovirus F 40/41 Not Detected (Not Detect); Astrovirus Not Detected (Not Detect); Campylobacter Not Detected (Not Detect); Clostridium difficile toxin AB Not Detected (Not Detect); Cryptosporidium Not Detected (Not Detect); Cyclospora cayetanensis Not Detected (Not Detect); Entamoeba histolytica Not Detected (Not Detect); Enteroaggregative E.coli Not Detected (Not Detect); Enterotoxigenic E.coli It/st Not Detected (Not Detect); Giardia lamblia Not Detected (Not Detect); Norovirus GI/GII Not Detected (Not Detect); Plesiomonsa shigelloides Not Detected (Not Detect); Rotavirus A Not Detected (Not Detect); Salmonella Not Detected (Not Detect); Sapovirus Not Detected (Not Detect); Shiga-like toxin-prod E.coli Not Detected (Not Detect); Shigella/Enteroinvasive E.coli Not Detected (Not Detect); Vibrio Not Detected (Not Detect); Vibrio cholerae Not Detected (Not Detect); Yersinia enterocolitica Not Detected (Not Detect)
[2023-02-22 23:15] LABS: Enteropathogenic E.coli Detected (Not Detect)
== END 2023-02-22 23:40 | disposition home or self-care (01) ==
PROVIDERS: Emergency Medicine; Emergency Provider Emergency Medicine; PCP Family Medicine
DX: A04.4 Other intestinal Escherichia coli infections (principal); R19.7 Diarrhea, unspecified
CPT/HCPCS: 36415; 74177; 80053; 81003; 81015; 81025; 83690; 85025; 87086; 87507; 93005; 93010; 96361; 96374; 99284; J2405; Q9967

== ENCOUNTER → 2023-05-29 15:04 | Outpatient (CLI) | payer OTHER, SELFPAY ==
[2021-11-15 14:09] VITALS: BMI 39.4
--- NOTE | 2023-05-29 | DI.MG.S_ITS ---
BILATERAL DIGITAL SCREENING MAMMOGRAM 3D/2D WITH CAD: 05/29/2023 CLINICAL: Routine screening. Comparison is made to exams dated: 03/17/2022 mammogram, 08/27/2020 mammogram, and 09/22/2018 mammogram - [facility]. There are scattered areas of fibroglandular density in both breasts (category b / 25%-50% glandular tissue). Current study was also evaluated with a Computer Aided Detection (CAD) system. No significant masses, calcifications, or other findings are seen in either breast. There has been no significant interval change. IMPRESSION: NEGATIVE There is no mammographic evidence of malignancy. A 1 year screening mammogram is recommended. Based on the Tyrer Cuzick model (a risk assessment model) the patient's lifetime risk is 7.1% and her 10 year risk is 2.3%. According to the ACR, ACS, and NCCN guidelines, an annual breast MRI exam along with mammogram is recommended if the patient's lifetime risk is 20% or greater. This exam was interpreted at Station ID: [id number]. NOTE: For mammograms, a report in lay terms will be sent to the patient. Approximately 15% of breast malignancies will not be visualized mammographically. In the management of a palpable breast mass, a negative mammogram must not discourage biopsy of a clinically suspicious lesion. Electronically Signed By: Radha polk/melissa:05/29/2023 16:21:50 copy to: Onur Martini letter sent: Normal Exam ACR BI-RADS Category 1: Negative [id number]
== END ==
LOC: MAMMO 15:05
PROVIDERS: PCP Family Medicine; Referring Provider Family Medicine; Visit Provider Family Medicine
DX: Z12.31 Encounter for screening mammogram for malignant neoplasm of breast (principal); R92.323 Mammographic fibroglandular density, bilateral breasts
CPT/HCPCS: 77063; 77067

== ENCOUNTER → 2023-09-05 16:48 | Outpatient (CLI) | payer OTHER, SELFPAY ==
[2021-11-15 14:09] VITALS: BMI 39.4
--- NOTE | 2023-09-05 16:52 | DI.RAD.S_ITS ---
PROCEDURE: XR KNEE RT 3V INDICATIONS: RT KNEE PAIN TECHNIQUE: 3 views of the knee were acquired. COMPARISON: [facility], , XR KNEE RT 3V, 11/13/2017, 16:08. FINDINGS: Bones: No fractures or dislocations. No suspicious bony lesions. Tricompartmental joint space narrowing with associated osteophytosis. Soft tissues: No joint effusion. No suspicious soft tissue calcifications. IMPRESSION: No acute bony abnormality or significant effusion. 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 Dictated by: Valdemar Chin M.D. on 09/06/2023 at 8:10 Approved by: Valdemar Chin M.D. on 09/06/2023 at 8:10
== END ==
LOC: RAD 16:51
PROVIDERS: PCP Family Medicine; Referring Provider Family Medicine; Visit Provider Family Medicine
DX: M25.562 Pain in left knee (principal); M17.11 Unilateral primary osteoarthritis, right knee
CPT/HCPCS: 73562

== ENCOUNTER → 2023-10-11 11:15 | Outpatient (CLI) | payer OTHER, SELFPAY ==
[2021-11-15 14:09] VITALS: BMI 39.4
--- NOTE | 2023-10-11 11:17 | DI.US.S_ITS ---
PROCEDURE: US RENAL COMPLETE INDICATIONS: STAGE 2 CHRONIC KIDNEY DISEASE TECHNIQUE: Real-time scanning was performed of the kidneys and bladder, with image documentation. COMPARISON: None. FINDINGS: Kidneys: Left Kidney is small. Right kidney measures 11.4 cm long; left kidney measures 8.6 cm long. Right renal cortical thickness is 0.8 cm; left renal cortical thickness is 1.2 cm. Renal cortical echotexture is normal. No hydronephrosis or nephrolithiasis. No suspicious solid mass lesions. Bladder: Decompressed. Miscellaneous: No free pelvic fluid. IMPRESSION: The left kidney is small. Normal renal echogenicity and no hydronephrosis. Dictated by: Valdemar Chin M.D. on 10/11/2023 at 12:15 Approved by: Valdemar Chin M.D. on 10/11/2023 at 12:18
== END ==
LOC: US 11:15
PROVIDERS: PCP Family Medicine; Referring Provider Family Medicine; Visit Provider Family Medicine
DX: N18.2 Chronic kidney disease, stage 2 (mild) (principal)
CPT/HCPCS: 76770

== ENCOUNTER → 2024-01-05 15:09 | Outpatient (CLI) | payer OTHER, SELFPAY ==
[2021-11-15 14:09] VITALS: BMI 39.4
--- NOTE | 2024-01-05 15:11 | DI.RAD.S_ITS ---
PROCEDURE: XR CERVICAL SPINE 4V OR 5V INDICATIONS: Cervicalgia TECHNIQUE: 5. views of the cervical spine acquired. COMPARISON: [facility], CR, XR CERVICAL SPINE 2V OR 3V, 06/26/2020, 11:40. FINDINGS: Straightening of the cervical spine. Vertebral body heights are well-maintained. Multilevel, moderate degenerative disease of the cervical spine, slightly progressed from prior exam. No prevertebral soft tissue edema. No significant cervical facet arthropathy. Left osseous neural foraminal stenosis: Limited evaluation given patient positioning. Mild at C4-5, moderate at C5-6. Nondiagnostic at C6-7 C7-T1. Right osseous neural foraminal stenosis: Mild at C4-5, moderate C5-6, C6-7. Lateral masses C1 to are well-aligned. IMPRESSION: Degenerative changes as described above. Dictated by: Belia Blackwell M.D. on 01/05/2024 at 18:10 Approved by: Belia Blackwell M.D. on 01/05/2024 at 18:12
== END ==
PROVIDERS: PCP Family Medicine; Referring Provider Family Medicine; Visit Provider Family Medicine
DX: M48.02 Spinal stenosis, cervical region (principal); M47.812 Spondylosis without myelopathy or radiculopathy, cervical region; M54.2 Cervicalgia
CPT/HCPCS: 72050

== ENCOUNTER 2024-03-24 18:14 | Inpatient (IN) | payer OTHER, SELFPAY ==
[2021-11-15 14:09] VITALS: BMI 39.4
[2024-03-24 18:27] VITALS: BP 128/64; PULSE 93; RESP 16; TEMP 36.9; O2SAT 99; BMI 25.4
--- NOTE | 2024-03-24 18:27 | ED.GENADULT ---
HPI - General Adult General Chief complaint: Urogenital-Female Stated complaint: R side px 1wk Time Seen by Provider: 03/24/24 18:26 Source: patient, EMS, RN notes reviewed and old records reviewed Mode of arrival: EMS Limitations: no limitations History of Present Illness HPI narrative: 57-year-old female history of hypothyroidism, stage 3 kidney disease who presents with complaint of right sided flank pain for about a week that significantly worsened today after working outside. She states it was a quite uncomfortable. She describes it as flank pain does not come around to the front. Does have some increase pain with movement. No fevers. No nausea or vomiting. States normal bowel movements no black or bloody stools. No dysuria urgency frequency. No vaginal bleeding. She notes she has had hysterectomy before. States she is on medication for her thyroid. Multiple allergies reported. No tobacco, occasional alcohol, no recreational drugs. Dr. Martini is her primary care physician. Patient received fentanyl EN as well as ketamine. She states she does not feel well all and would not like to have it the future. Related Data Home Medications Medication Instructions Recorded Confirmed levothyroxine 50 mcg tablet 50 mcg PO DAILY 01/03/19 01/12/22 Previous Rx's Medication Instructions Recorded alprazolam 0.5 mg tablet (Xanax) 0.5 mg PO TID #15 tabs 01/16/22 Allergies Allergy/AdvReac Type Severity Reaction Status Date / Time aspirin [ASPIRIN] Allergy Severe Anaphylaxis Verified 02/22/23 16:51 codeine [CODEINE] Allergy Severe Anaphylaxis Verified 02/22/23 16:51 ibuprofen [IBUPROFEN] Allergy Severe Anaphylaxis Verified 02/22/23 16:51 gabapentin Allergy Intermediate Hives Verified 02/22/23 16:51 lamotrigine [LAMOTRIGINE] Allergy Intermediate WELTS/ITCHI Verified 02/22/23 16:51 NG oxycodone [OXYCODONE] Allergy Intermediate ITCHING Verified 02/22/23 16:51 Penicillins [PENICILLINS] Allergy Intermediate Anaphylaxis Verified 02/22/23 16:51 Sulfa (Sulfonamide Allergy Unknown Anaphylaxis Verified 02/22/23 16:51 Antibiotics) [SULFA (SULFONAMIDE ANTIBIOTICS)] Review of Systems Review of Systems ROS Unobtainable: All systems reviewed & are unremarkable except as noted in HPI and below Patient History Medical History Infertility Surgical History H/O hysterectomy for benign disease History of hysteroscopy (08/26/21) Anesthesia History of hand surgery Status post dilation and curettage History of third molar tooth extraction Status post laparoscopic cholecystectomy Social History household members: family Smoking Status: Never smoker alcohol intake: former Smoking Status: Never smoker Substance Use Type: does not use Exam Narrative Exam Narrative: GENERAL: Alert and oriented x three, Female in moderate distress HEENT: Head normocephalic, atraumatic, EOMI, pupils reactive, face symmetric, moist mucous membranes NECK: Supple, full range of motion CARDIOVASCULAR: Regular rate and rhythm without murmurs, rubs or gallops. RESPIRATORY: Breath sounds equal bilaterally, no wheezes rales or rhonchi. ABDOMEN: Soft, nontender. Normoactive bowel sounds all 4 quadrants. No guarding or rebound, rigidity, no mass ,no pulsatile bruit or mass : No CVA tenderness BACK: No cervical, thoracic or lumbar vertebral point tenderness. Patient has Slightly decreased range of motion. Muscle strength is 5/5 in lower extremities, sensation intact bilateral lower extremities. Cap refill less than 2 seconds bilateral lower extremities. EXTREMITIES: Normal range of motion, no clubbing or edema. Neurovascularly intact NEUROLOGICAL: Cranial nerves II through XII grossly intact. Moving all extremities SKIN: Warm, dry, no petechiae, no rashes or lesions. Initial Vital Signs Initial Vital Signs: Vital Signs Temperature 98.4 F 03/24/24 18:27 Pulse Rate 93 H 03/24/24 18:27 Respiratory Rate 16 03/24/24 18:27 Blood Pressure 128/64 03/24/24 18:27 Pulse Oximetry 99 03/24/24 18:27 Oxygen Delivery Method Room Air 03/24/24 18:27 Course Orders Ordered: ED Orders 03/24/24 18:21 CBC Auto Diff [Complete Blood Count AUTO DIFF] Stat CMP [Comprehensive Metabolic Panel] Stat Lipase Stat 03/24/24 18:26 CT kidney ureter bladder (KUB) Stat 03/24/24 20:45 Urine Culture Stat Urine Microscopic Stat Acetaminophen (Acetaminophen 325 Mg Tablet) 650 mg PO Q6H DARVIN Hydromorphone HCl (Hydromorphone 2 Mg Tablet) 2 mg PO Q4HR PRN PRN Reason: Pain, Moderate (4-6) Levofloxacin (Levaquin) 750 mg in 150 mls @ 100 mls/hr IV NOW ONE Stop: 03/24/24 22:47 Last Admin: 03/24/24 21:27 Dose: 100 mls/hr Documented By: ANJELICA Sodium Chloride (Normal Saline 0.9%) 1,000 mls @ 100 mls/hr IV CONT DARVIN Levofloxacin (Levaquin) 750 mg in 150 mls @ 100 mls/hr IV Q24H DARVIN Levothyroxine Sodium (Levothyroxine 50 Mcg Tablet) 50 mcg PO DAILY DARVIN Non-Formulary Medication (Alprazolam [Xanax]) 0.5 mg PO TID DARVIN Ondansetron HCl (Ondansetron 4 Mg/2 Ml Inj) 4 mg IV Q8HR PRN PRN Reason: Nausea And Vomiting Oxycodone HCl (Oxycodone Ir 5 Mg Tablet) 5 mg PO Q3H PRN PRN Reason: Pain, Moderate (4-6) Discontinued Medications Hydromorphone HCl (Hydromorphone 0.5 Mg Inj) 0.5 mg IV NOW ONE Stop: 03/24/24 19:11 Last Admin: 03/24/24 19:16 Dose: 0.5 mg Documented By: ANJELICA Hydromorphone HCl (Hydromorphone 1 Mg Inj) 1 mg IV NOW ONE Stop: 03/24/24 19:43 Last Admin: 03/24/24 19:44 Dose: 1 mg Documented By: ANJELICA Hydromorphone HCl (Hydromorphone 0.5 Mg Inj) 0.5 mg IV NOW ONE Stop: 03/24/24 22:15 Last Admin: 03/24/24 22:22 Dose: 0.5 mg Documented By: IGOR Acetaminophen (Ofirmev) 1,000 mg in 100 mls @ 400 mls/hr IV NOW ONE Stop: 03/24/24 18:40 Last Infusion: 03/24/24 19:08 Dose: Infused Documented By: Admin: 03/24/24 18:41 Dose: 400 mls/hr Documented By: ANJELICA Sodium Chloride (Normal Saline 0.9%) 1,000 mls @ 1,000 mls/hr IV BOLUS ONE Stop: 03/24/24 22:37 Last Admin: 03/24/24 22:06 Dose: 1,000 mls/hr Documented By: IGOR Vital Signs Vital signs: Vital Signs - 8 hr 03/24/24 18:27 03/24/24 20:12 03/24/24 20:23 Temperature 98.4 F Pulse Rate 93 H 75 79 Respiratory Rate 16 Blood Pressure 128/64 Pulse Oximetry 99 98 100 Oxygen Delivery Method Room Air 03/24/24 20:23 Temperature Pulse Rate Respiratory Rate Blood Pressure 108/60 Pulse Oximetry Oxygen Delivery Method Medical Decision Making Lab Data 03/24/24 18:21 03/24/24 18:21 Labs: Lab Results 03/24/24 03/24/24 Range/Units 18:21 20:45 WBC 8.0 (4.5-11.0) X10^3/uL RBC 3.81 L (4.0-5.2) X10^6/uL Hgb 12.0 (12.0-16.0) g/dL Hct 35.6 L (36-46) % MCV 93.5 (80-100) fL MCH 31.5 (26-34) PG MCHC 33.7 (30-36) % RDW 12.9 (11.6-14.8) % Plt Count 219 (150-400) X10^3/uL Neut % (Auto) 40.1 L (50-75) % Lymph % (Auto) 51.7 H (25-40) % [place] % (Auto) 6.0 (3-14) % Eos % (Auto) 1.4 L (2-4) % Baso % (Auto) 0.8 (0-2) % Neut # (Auto) 3200 (4254-3077) /uL Lymph # (Auto) 4100 (9951-8992) /uL [place] # (Auto) 500 (0-900) /uL Eos # (Auto) 100 (0-450) /uL Baso # (Auto) 100 (0-100) /uL Sodium 137 (137-145) mmol/L Potassium 3.8 (3.4-5.1) mmol/L Chloride 104 (98-107) mmol/L Carbon Dioxide 24 (22-32) mmol/L BUN 17 (7-17) mg/dL Creatinine 1.21 H (0.52-1.04) mg/dL Estimated GFR 52 L (>60) mL/min BUN/Creatinine Ratio 14.0 (6-22) Glucose 98 (70-100) mg/dL Calcium 9.4 (8.4-10.2) mg/dL Total Bilirubin 0.4 (0.2-1.3) mg/dL AST 37 H (14-36) IU/L ALT 30 (<35) IU/L Alkaline Phosphatase 77 (38-126) U/L Total Protein 7.3 (6.3-8.2) g/dL Albumin 4.6 (3.5-5.0) g/dL Globulin 2.7 (1.7-4.1) g/dL Albumin/Globulin Ratio 1.7 (1.0-2.8) Lipase 125 (23-300) U/L Urine RBC None seen (0-5/HPF) Urine WBC 10-30/hpf H (0-5/HPF) Ur Squamous Epith Cells 5-10 /hpf H (0-5/HPF) Urine Bacteria Many (>30) H (None) Hyaline Casts 0-1/lpf (None) Urine Mucus 2+ H (Negative) Vol Urine Centrifuged 10ml (spun) Urine Dip Bedside Urine Glucose Negative Bedside Urine Bilirubin - Negative Bedside Urine Ketone +/- 5 Urine Specific [place] 1.015 Bedside Urine Occult Blood - Negative Bedside Urine pH 6.0 Bedside Urine Protein +/- 15 Bedside Urine Urobilinogen - Negative Bedside Urine Nitrite - Negative Bedside Urine Leukocytes ++ 125 Esterase Point of care testing: Urine Dip Bedside Urine Glucose Negative Bedside Urine Bilirubin - Negative Bedside Urine Ketone +/- 5 Urine Specific [place] 1.015 Bedside Urine Occult Blood - Negative Bedside Urine pH 6.0 Bedside Urine Protein +/- 15 Bedside Urine Urobilinogen - Negative Bedside Urine Nitrite - Negative Bedside Urine Leukocytes ++ [address] scan - abdomen/pelvis: Radiologist's Impression: Close Abdomen/Pelvis CT (Signed) Raul Ordoñez - 03/24/[address] [address] [address] Scan Report Signed Patient: Johanny José MR#: [id number] : 1965 Acct:[id number] Age/Sex: 58 / F Date of Service: 03/24/24 Loc: ED Accession Number: [id number] Procedure: CT kidney ureter bladder (KUB) Ordering Provider: Bertha Diamond D.O. PROCEDURE: CT KIDNEY URETER BLADDER (KUB) INDICATIONS: R flank pain TECHNIQUE: Axial sections were acquired from the lung bases to the pubic symphysis. Coronal and sagittal reformats were performed. For radiation dose reduction, the following was used: automated exposure control, adjustment of mA and/or kV according to patient size. COMPARISON: [facility], CT, CT ABDOMEN PELVIS W CON, 02/22/2023, 20:20. FINDINGS: Image quality: Diagnostic. Lower Chest: There is a small to moderate hiatal hernia seen. URINARY: Right Kidney: No stones or hydronephrosis. Right Ureter: No hydroureter. Left Kidney: No stones or hydronephrosis. Left Ureter: No hydroureter. Bladder: Normal wall thickness. No stones. ABDOMEN: Liver: No contour-deforming solid mass. Gallbladder: Removed. Biliary ducts: No biliary dilation. Pancreas: No ductal dilation. Spleen: Size is within normal limits. Adrenal Glands: No adrenal nodules. Stomach and Bowel: Normal colonic caliber, without significant wall thickening. Diverticula formation can be seen throughout the colon, including proximally. No significant surrounding inflammatory change is seen. No dilated loops of small bowel are seen. A normal appendix is noted. Peritoneum: No abnormal intraperitoneal fluid. No free air. Ventral Wall: No hernia. Abdominal Nodes: No enlarged retroperitoneal or mesenteric lymph nodes. Vessels: Aorta and inferior vena cava are normal in size. PELVIS: Pelvic Organs: No adnexal masses are seen on either side. Pelvic Nodes: Unremarkable. Miscellaneous: No inguinal hernias are seen. Bones: Unremarkable. IMPRESSION: No obstructing stones or hydronephrosis. Normal appendix. Additional findings: Small to moderate hiatal hernia Cholecystectomy Dictated by: Raul Ordoñez M.D. on 03/24/2024 at 18:02 Approved by: Raul Ordoñez M.D. on 03/24/2024 at 18:04 [facility] Narrative Medical decision making narrative: 58-year-old female with a week of flank pain that is rapidly worsened this afternoon. Patient fentanyl which she tolerated well enroute also some ketamine and appears to have little bit of emergence reaction with ketamine has quite well appearing otherwise. Labs show white count 8 hemoglobin Twelve, platelets of 219. Lytes appropriate BUN is 17 creatinine is 1.21 from January of 2023 when it was 0.95 but patient states she has stage 3 kidney disease. AST is 37 otherwise appropriate LFTs. Urine CT abdomen and pelvis no obstructing stones or hydronephrosis, normal appendix, small to moderate hiatal hernia cholecystectomy normal colonic caliber without significant wall thickening diverticular formation throughout the colon including proximally no significant surrounding inflammatory changes noted. On repeat exam patient is still uncomfortable, no flank pain with palpation, no midline tenderness of the back, no anterior pain. No pain over the ribs but just below she is tender to palpation and with movement. There was no bulge no erythema no skin changes noted. She does not have any anterior posterior flank or abdominal pain. It seems to be very much of the lateral side. She does note it has been about a week and worsened while she was working in her yd today. She states it feels like the ketamine had worn off, she is still uncomfortable given additional dose of pain medication. Patient attempting to give a urine sample. Patient able to ambulate to the bathroom but very uncomfortable. Urine shows leukocyte esterase, micro shows no red cells 10-30 white cells 5-10 squamous many bacteria 2+ mucus was sent for culture. Discussed with patient possibly could have a pyelonephritis she was afebrile with normal white count but is quite uncomfortable possibility also includes back pain although patient is not uncomfortable in her midline. back more on the side. patient was given a dose of Levaquin here in the department. Blood pressure has been soft here in the department did receive multiple doses of narcotics has not had any tachycardia. Was given fluids in department. Spoke with Dr. Coleman, accepts for observation discussed possible pyelonephritis versus back pain. Patient did require multiple doses of medications has a little bit softer blood pressure since then maybe secondary to medications is receiving fluids received a dose of IV antibiotics. Discharge Plan Departure Patient Disposition: Admitted as Observation Clinical Impression: Pyelonephritis Admit Date/Time: 03/24/24 21:56 Admit Provider: Maday Coleman
[2024-03-24 18:39] LABS: Add Manual Diff / Slide Review NO; Basophils Absolute Auto 100 /uL (0-100); Basophils Percent Auto 0.8 % (0-2); Eosinophils Absolute Auto 100 /uL (0-450); Eosinophils Percent Auto 1.4 % (2-4); Hematocrit 35.6 % (36-46); Lymphocytes Absolute Auto 4100 /uL (1100-4500); Lymphocytes Percent Auto 51.7 % (25-40); Mean Corpuscular HGB Conc 33.7 % (30-36); Mean Corpuscular Hemoglobin 31.5 PG (26-34); Mean Corpuscular Volume 93.5 fL (80-100); Monocytes Absolute Auto 500 /uL (0-900); Neutrophils Absolute Auto 3200 /uL (1500-7000); Neutrophils Percent Auto 40.1 % (50-75); Platelet Count 219 X10^3/uL (150-400); Red Blood Cell Count 3.81 X10^6/uL (4.0-5.2); Red Cell Distribution Width 12.9 % (11.6-14.8)
[2024-03-24 18:40] LABS: Alanine Aminotransferase 30 IU/L (<35); Albumin 4.6 g/dL (3.5-5.0); Albumin Globulin Ratio 1.7 (1.0-2.8); Alkaline Phosphatase 77 U/L (38-126); Aspartate Aminotransferase 37 IU/L (14-36); Bilirubin Total 0.4 mg/dL (0.2-1.3); Blood Urea Nitrogen 17 mg/dL (7-17); Calcium 9.4 mg/dL (8.4-10.2); Carbon Dioxide 24 mmol/L (22-32); Chloride 104 mmol/L (98-107); Estimated Glomerular Filt Rate 52 mL/min (>60); Globulin 2.7 g/dL (1.7-4.1); Glucose 98 mg/dL (70-100); HEMOLYSIS 22 (0-50); Lipase 125 U/L (23-300); Potassium 3.8 mmol/L (3.4-5.1); Sodium 137 mmol/L (137-145); Total Protein 7.3 g/dL (6.3-8.2)
[2024-03-24] MEDS: ACETAMINOPHEN IV 1,000 MG/100 ML VIAL 400 MG IV (18:41)
[2024-03-24] MEDS: HYDROMORPHONE 0.5 MG INJ IV ×2 (19:16→22:22)
[2024-03-24] MEDS: HYDROMORPHONE 1 MG INJ IV (19:44)
[2024-03-24 20:12] VITALS: PULSE 75; O2SAT 98
[2024-03-24 20:23] VITALS: BP 108/60; PULSE 79; O2SAT 100
[2024-03-24 21:14] LABS: Bacteria Urine Many (>30); RBC Urine None Seen (0-5/HPF); Squamous Epithelial Cell Urine 5-10 /HPF (0-5/HPF); Urine Volume 10mL (spun); WBC Urine 10-30/HPF (0-5/HPF)
[2024-03-24 21:15] LABS: Hyaline Casts Urine 0-1/LPF; Mucus Urine 2+ (Negative)
[2024-03-24] MEDS: levoFLOXacin 750 MG/150 ML PIGGYBACK 100 MG IV (21:27)
[2024-03-24] MEDS: SODIUM CHLORIDE 0.9% 1,000 ML 1000 ML IV (22:06)
[2024-03-24 22:41] VITALS: BP 124/76; PULSE 67; RESP 18; TEMP 36.6; O2SAT 98
[2024-03-24 22:54] VITALS: BMI 25.4
[2024-03-24] MEDS: SODIUM CHLORIDE 0.9% 1,000 ML 100 ML IV (23:33)
[2024-03-24] MEDS: HYDROMORPHONE 2 MG TABLET PO (23:51)
[2024-03-25 03:00] VITALS: BP 113/63; PULSE 63; RESP 18; TEMP 36.6; O2SAT 98
[2024-03-25] MEDS: HYDROMORPHONE 2 MG TABLET PO ×4 (06:23→21:05)
[2024-03-25] MEDS: LEVOTHYROXINE 50 MCG TABLET PO (06:23)
[2024-03-25 07:00] VITALS: BP 104/69; PULSE 56; RESP 15; TEMP 36.4; O2SAT 97
--- NOTE | 2024-03-25 08:29 | P.HP_ITS ---
History of Present Illness History of Present Illness Date Patient Seen: 03/25/24 Time Patient Seen: 08:29 Date of Onset of Symptoms: 03/19/24 Chief complaint: R side px 1wk Narrative: Patient is a 58-year-old female well known to me with history of bipolar disease and early renal failure who presents with acute right-sided flank pain. Patient states that it has been slowly coming on over the last week. Had been doing well up until yesterday when she had an acute worsening. Pain is sharp all on the right side mostly lateral. No radiation. Worse with certain movements. Otherwise nothing seems to make a difference. She has had no nausea vomiting fevers chills. No urinary symptoms no change in her bowel movements. No history of trauma. 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 When into her house and basically called her mom who called 911. Patient did not sleep well last night. Can only lay on her left side. No other significant change. She has had no fevers or chills. Does not feel sick. Just has a sharp pain. [facility] Medical History Infertility Surgical History H/O hysterectomy for benign disease History of hysteroscopy (08/26/21) Anesthesia History of hand surgery Status post dilation and curettage History of third molar tooth extraction Status post laparoscopic cholecystectomy Social History household members: family Smoking Status: Never smoker alcohol intake: former Meds Home Medications and Allergies Home Medications Medication Instructions Recorded Confirmed Type levothyroxine 50 mcg tablet 50 mcg PO DAILY 01/03/19 03/24/24 History acyclovir 400 mg tablet 400 mg PO BID 03/24/24 03/24/24 History carbamazepine 200 mg 200 mg PO SEEINSTR 03/24/24 03/24/24 History capsule,extended release [id number] fluticasone propionate 50 1 spray intranasal DAILY 03/24/24 03/24/24 History mcg/actuation nasal spray,suspension hydroxyzine HCl 50 mg tablet 50 mg PO QPM 03/24/24 03/24/24 History lisinopril 2.5 mg tablet 2.5 mg PO QPM 03/24/24 03/24/24 History methocarbamol 750 mg tablet 750 mg PO Q6H PRN Spasms 03/24/24 03/24/24 History venlafaxine 150 mg 150 mg PO DAILY 03/24/24 03/24/24 History capsule,extended release 24 hr Allergies Allergy/AdvReac Type Severity Reaction Status Date / Time aspirin [ASPIRIN] Allergy Severe Anaphylaxis Verified 02/22/23 16:51 codeine [CODEINE] Allergy Severe Anaphylaxis Verified 02/22/23 16:51 ibuprofen [IBUPROFEN] Allergy Severe Anaphylaxis Verified 02/22/23 16:51 gabapentin Allergy Intermediate Hives Verified 02/22/23 16:51 lamotrigine [LAMOTRIGINE] Allergy Intermediate WELTS/ITCHI Verified 02/22/23 16:51 NG oxycodone [OXYCODONE] Allergy Intermediate ITCHING Verified 02/22/23 16:51 Penicillins [PENICILLINS] Allergy Intermediate Anaphylaxis Verified 02/22/23 16:51 Sulfa (Sulfonamide Allergy Unknown Anaphylaxis Verified 02/22/23 16:51 Antibiotics) [SULFA (SULFONAMIDE ANTIBIOTICS)] Review of Systems Review of Systems Narrative: Otherwise negative except above Exam Vital Signs (past 8 hours): - 03/25/24 03:00 Temperature 97.8 F Pulse Rate 63 Respiratory Rate 18 Blood Pressure 113/63 Pulse Oximetry 98 Oxygen Flow Rate 0 Oxygen Delivery Method Room Air Oxygen Flow Rate 0 Narrative Exam Narrative: Alert female lying on her left side mild distress. HEENT exam mucous membranes moist neck supple without adenopathy lungs are clear. Heart is regular rate and rhythm with no clicks rubs or gallops. Abdomen is soft positive bowel sounds nontender. Back shows no tenderness no SI joint tenderness no real flank tenderness except when movement of the abdomen or flank. Seems to be mostly right-sided seems to be tender right between the lower rib and the top of the ileum. On the side. No mass swelling or erythema. Maybe some slight top of the ileum tenderness. Extremities without cyanosis clubbing edema. Neurologic exam is normal Objective Labs 03/24/24 18:21 03/24/24 18:21 Labs: Laboratory Results - last 24 hr 03/24/24 03/24/24 18:21 20:45 WBC 8.0 RBC 3.81 L Hgb 12.0 Hct 35.6 L MCV 93.5 MCH 31.5 MCHC 33.7 RDW 12.9 Plt Count 219 Neut % (Auto) 40.1 L Lymph % (Auto) 51.7 H [place] % (Auto) 6.0 Eos % (Auto) 1.4 L Baso % (Auto) 0.8 Neut # (Auto) 3200 Lymph # (Auto) 4100 [place] # (Auto) 500 Eos # (Auto) 100 Baso # (Auto) 100 Sodium 137 Potassium 3.8 Chloride 104 Carbon Dioxide 24 BUN 17 Creatinine 1.21 H Estimated GFR 52 L BUN/Creatinine Ratio 14.0 Glucose 98 Calcium 9.4 Total Bilirubin 0.4 AST 37 H ALT 30 Alkaline Phosphatase 77 Total Protein 7.3 Albumin 4.6 Globulin 2.7 Albumin/Globulin Ratio 1.7 Lipase 125 Urine RBC None seen Urine WBC 10-30/hpf H Ur Squamous Epith Cells 5-10 /hpf H Urine Bacteria Many (>30) H Hyaline Casts 0-1/lpf Urine Mucus 2+ H Vol Urine Centrifuged 10ml (spun) Assessment & Plan Assessment & Plan narrative: Right flank pain. I think this is unlikely to be pyelonephritis. CT scan shows no obvious abnormality. White count is normal. Probably musculoskeletal. Does not have an appendix does not have gallbladder. So seems unlikely to be related to either 1 of those. Not having any bowel symptoms. At this point will start Toradol IV Valium for muscle relaxation and will follow. Hope by this afternoon maybe feeling better and can possibly go home. Will see how things go. If not we will re-evaluate but do not see anything definitive infected or bowel related. Certainly with CT being negative unlikely for kidney stone. UTI. Urine does look like she may have UTI. No other changes. Will continue to follow. On Levaquin. Follow-up culture. Bipolar disease. Has been stable and remarkably doing well. Will continue usual meds. DVT prophylaxis should be okay with just calf treatment. No need for Lovenox Code status full. Disposition etiology is somewhat unclear. Still having pretty severe pain. Will treat as above and re-evaluate later the today. Time-Based Coding :: [TOTAL MINUTES] spent with patient and on the chart (including review of chart, obtaining history, exam, reviewing outside data, placing orders, documenting exam and treatment plan, and counseling patient) on [DATE].
[2024-03-25] MEDS: carBAMazepine XR 100 MG TAB 200 MG PO (08:58)
[2024-03-25] MEDS: VENLAFAXINE ER 75 MG CAP 150 MG PO (08:59)
[2024-03-25] MEDS: ALPRAZolam 0.25 MG TABLET 0.5 MG PO (08:59)
[2024-03-25] MEDS: ACYCLOVIR 400 MG TABLET PO ×2 (08:59→21:04)
[2024-03-25 11:00] VITALS: BP 105/65; PULSE 58; RESP 16; TEMP 36.2; O2SAT 99
[2024-03-25] MEDS: SODIUM CHLORIDE 0.9% 1,000 ML 100 ML IV ×2 (11:00→23:17)
[2024-03-25] MEDS: ACETAMINOPHEN 325 MG TABLET 650 MG PO ×3 (11:59→23:17)
--- NOTE | 2024-03-25 12:15 | CM.DANOTE ---
DCP Assessment note pt is a 58yo F here with right abdominal pain of an unknown origin. PMH Of bipolar and early renal failure. pt of PCP Vini GRANT and self pay UPSETTER HELPER reviewed EMR. per chart, pt got this sharp pain after working in yard all day. pt does not have appendix or gallbladder, CT normal, white count normal. Medical POC continues. potential UTI UPSETTER HELPER entered room and introduced self and role .Pt in bed, laying down holding abdomen, reports feeling a lot of pain. lives with 23yr old son in [place]. indep at baseline. denies any CM needs at this time. UPSETTER HELPER updated nursing staff pt in a lot of pain, will check in with pt sonia. P: anticipate home with family to transport when medically stable. no identified barriers to dc home at this time. CM team will continue to follow closely in case any DCP needs arise. KRISHNA Andrews Discharge Planning/Care Management CM Discharge Assessment Start: 03/25/24 12:14 Freq: Status: Active Protocol: Document 03/25/24 12:14 (Rec: 03/25/24 12:15 [id number]) Discharge Planning Assessment Assigned Asp Web Developer KRISHNA Rose DPOA/Assigned Designee Name mother Andrea Contact Information [phone] Advance Directives? Yes Advance Directives on File No History Provided By Patient,Medical Record Prior Living Arrangements House Household Members family Type of transporation used prior to Drives own vehicle admit Independent with ADL's Yes Is patient alert and oriented? Yes Discharge Plan Home Transportation Arrangement Family Referrals Initiated None needed Whiteboard Updated in Patient Room with Yes name and ext. # of Asp Web Developer Review Status In Process Please Provide Date Initial DC 03/25/24 Assessment Was Performed Next Review Type Continued Stay Review
[2024-03-25 15:00] VITALS: BP 103/66; PULSE 58; RESP 12; TEMP 35.8; O2SAT 97
[2024-03-25] MEDS: diazePAM 5 MG TABLET PO ×2 (17:36→23:17)
[2024-03-25 20:00] VITALS: BP 118/76; PULSE 59; RESP 16; TEMP 36.2; O2SAT 98
[2024-03-25] MEDS: carBAMazepine XR 100 MG TAB PO (21:04)
[2024-03-25] MEDS: hydrOXYzine HCL 25 MG TABLET 50 MG PO (21:05)
[2024-03-25] MEDS: levoFLOXacin 750 MG/150 ML PIGGYBACK 100 MG IV (21:05)
--- NOTE | 2024-03-26 00:55 | PC.NURSE ---
Assumed care of patient at 00:30. Prior nurse, VINAY zheng completed assessment. Pt sleeping at this time.
[2024-03-26 04:00] VITALS: BP 108/69; PULSE 60; RESP 16; TEMP 36.4; O2SAT 97
[2024-03-26] MEDS: ACETAMINOPHEN 325 MG TABLET 650 MG PO ×3 (05:16→17:10)
[2024-03-26] MEDS: diazePAM 5 MG TABLET PO ×3 (05:17→17:12)
[2024-03-26] MEDS: LEVOTHYROXINE 50 MCG TABLET PO (05:17)
[2024-03-26] MEDS: HYDROMORPHONE 2 MG TABLET PO ×3 (05:17→20:56)
[2024-03-26 08:00] VITALS: BP 115/70; PULSE 59; RESP 14; TEMP 36.9; O2SAT 97
[2024-03-26 08:41] LABS: Add Manual Diff / Slide Review NO; Basophils Absolute Auto 0 /uL (0-100); Basophils Percent Auto 0.8 % (0-2); Eosinophils Absolute Auto 100 /uL (0-450); Eosinophils Percent Auto 3.8 % (2-4); Hematocrit 31.3 % (36-46); Hemoglobin 10.6 g/dL (12.0-16.0); Lymphocytes Absolute Auto 2000 /uL (1100-4500); Lymphocytes Percent Auto 50.3 % (25-40); Mean Corpuscular Hemoglobin 31.7 PG (26-34); Mean Corpuscular Volume 93.5 fL (80-100); Monocytes Absolute Auto 300 /uL (0-900); Neutrophils Absolute Auto 1400 /uL (1500-7000); Neutrophils Percent Auto 37.1 % (50-75); Platelet Count 136 X10^3/uL (150-400); Red Blood Cell Count 3.35 X10^6/uL (4.0-5.2); Red Cell Distribution Width 13.1 % (11.6-14.8); White Blood Cell Count 3.9 X10^3/uL (4.5-11.0)
[2024-03-26 08:54] LABS: Alanine Aminotransferase 27 IU/L (<35); Albumin 3.3 g/dL (3.5-5.0); Albumin Globulin Ratio 1.4 (1.0-2.8); Alkaline Phosphatase 54 U/L (38-126); Aspartate Aminotransferase 34 IU/L (14-36); BUN Creatinine Ratio 18.7 (6-22); Bilirubin Total 0.2 mg/dL (0.2-1.3); Blood Urea Nitrogen 20 mg/dL (7-17); Calcium 8.4 mg/dL (8.4-10.2); Carbon Dioxide 28 mmol/L (22-32); Chloride 109 mmol/L (98-107); Estimated Glomerular Filt Rate > 60 mL/min (>60); Globulin 2.3 g/dL (1.7-4.1); Glucose 101 mg/dL (70-100); HEMOLYSIS < 15 (0-50); Potassium 4.3 mmol/L (3.4-5.1); Sodium 139 mmol/L (137-145); Total Protein 5.6 g/dL (6.3-8.2)
[2024-03-26] MEDS: carBAMazepine XR 100 MG TAB 200 MG PO (09:05)
[2024-03-26] MEDS: CYCLOBENZAPRINE 10 MG TABLET PO (09:05)
[2024-03-26] MEDS: VENLAFAXINE ER 75 MG CAP 150 MG PO (09:05)
[2024-03-26] MEDS: ACYCLOVIR 400 MG TABLET PO ×2 (09:05→20:56)
--- NOTE | 2024-03-26 09:13 | PM.PN.1 ---
Subjective <[facility] Last Filed: 03/26/24 09:34> Subjective Interval history: Pt states R flank pain is better, 9/10 to 4/10. Continues to be localized over the flank, no radiation and no pain over the L flank. She had chills overnight without objective fever. Was able to sleep, she states from hydroxyzine which she uses as a sleep aid outpatient. No nausea or vomiting. Appetite is normal. Urinating and stooling with normal function. Exam <[facility] - Last Filed: 03/26/24 09:34> Vital Signs (past 8 hours): - 03/26/24 04:00 03/26/24 08:00 Temperature 97.6 F 98.5 F Pulse Rate 60 59 L Respiratory Rate 16 14 Blood Pressure 108/69 115/70 Pulse Oximetry 97 97 Oxygen Flow Rate 0 Oxygen Delivery Method Room Air Oxygen Flow Rate 0 Const Other: lying in hospital bed, intermittently grimacing from pain HENMT Other: mucous membranes moist Neck Other: neck is supple Resp Other: effort is normal. lungs clear bilaterally Cardio Other: regular rate and rhythm. no murmurs, rubs, or gallops GI Other: soft, warm, no guarding. nontender in all 4 quadrants with normal bowel sounds. Back/Spine/Pelvis Other: tender over R flank with light palpation. nontender with percussion of spine. tender over R flank, nontender over CVAs bilaterally. Skin Other: no rashes, ecchymosis, or lesions. Neuro Other: aox3. patellar and achilles reflexes intact bilaterally Extrem Other: no edema over the LEs, dorsal pedis pulses equal bilaterally. Psych Other: speech regular volume and rate. prosody. full range of emotion with appropriate affect. no perceptive disturbances. insight and judgment are good. Objective <[facility] Last Filed: 03/26/24 09:34> Labs 03/26/24 08:25 03/26/24 08:25 Labs: Laboratory Results - last 24 hr 03/26/24 08:25 WBC 3.9 L D RBC 3.35 L Hgb 10.6 L Hct 31.3 L MCV 93.5 MCH 31.7 MCHC 34.0 RDW 13.1 Plt Count 136 L Neut % (Auto) 37.1 L Lymph % (Auto) 50.3 H Brantley % (Auto) 8.0 Eos % (Auto) 3.8 Baso % (Auto) 0.8 Neut # (Auto) 1400 L Lymph # (Auto) 2000 Brantley # (Auto) 300 Eos # (Auto) 100 Baso # (Auto) 0 Sodium 139 Potassium 4.3 Chloride 109 H Carbon Dioxide 28 BUN 20 H Creatinine 1.07 H Estimated GFR > 60 BUN/Creatinine Ratio 18.7 Glucose 101 H Calcium 8.4 Total Bilirubin 0.2 AST 34 ALT 27 Alkaline Phosphatase 54 Total Protein 5.6 L Albumin 3.3 L Globulin 2.3 Albumin/Globulin Ratio 1.4 PFSH <[facility] - Last Filed: 03/26/24 09:34> Medical History Infertility Surgical History H/O hysterectomy for benign disease History of hysteroscopy (08/26/21) Anesthesia History of hand surgery Status post dilation and curettage History of third molar tooth extraction Status post laparoscopic cholecystectomy Social History household members: family Smoking Status: Never smoker alcohol intake: former Assessment & Plan <[facility] - Last Filed: 03/26/24 09:34> Assessment & Plan narrative: 58 year old F with history of bipolar and cervical spinal arthritis on HOD#2 for acute R flank pain. UTI - negative culture and asymptomatic. Discontinue abx and IVF Flank pain - significantly improved with pain meds. Currently most suspicious for MSK etiology consider the location, acute onset with activity, and history of degenerative disc disease with herniation. Referral to PT. Will see if she improves with pain control and PT over the next 2 days. If not, will consider imaging to re-eval spondylosis and DDD. bipolar - currently controlled, continue current management DVT prophylaxis - SCDs Code status is full. Time-Based Coding :: [TOTAL MINUTES] spent with patient and on the chart (including review of chart, obtaining history, exam, reviewing outside data, placing orders, documenting exam and treatment plan, and counseling patient) on [DATE]. <Xiomy Clay MD - Last Filed: 03/26/24 17:41> Assessment & Plan narrative: 58 year old F with history of bipolar and cervical spinal arthritis on HOD#2 for acute R flank pain. UTI - negative culture and asymptomatic. Discontinue abx and IVF Flank pain - significantly improved with pain meds. Currently most suspicious for MSK etiology consider the location, acute onset with activity, and history of degenerative disc disease with herniation. Referral to PT. Will see if she improves with pain control and PT over the next 2 days. If not, will consider imaging to re-eval spondylosis and DDD. bipolar - currently controlled, continue current management anemia: suspect dilutional. will stop ivf. follow DVT prophylaxis - SCDs Code status is full. 56 minutes spent with patient. discussing with physicians, nursing, reviewed chart, meeting with patient and formulating plan and documentation
--- NOTE | 2024-03-26 10:55 | CM.DPNOTE ---
DCP Note [employer] CONSULTANT reviewed EMR. per Danna note, UTI neg, stopping fluids/abx. Per chart, pt remains on IV pain medication. origin of pain remains unknown at this time. per Danna note, anticipate another few days before stable for dc. P: anticipate home with family to transport when medically stable. no identified barriers to dc home at this time. CM team will continue to follow closely in case any DCP needs arise. KRISHNA Andrews
--- NOTE | 2024-03-26 11:25 | PT.IIE ---
Current Diagnoses Unspecified abdominal pain (03/26/24) Surgical History (Last Reviewed 03/25/24 @ 08:31 by Onur Martini MD) Anesthesia H/O hysterectomy for benign disease History of hand surgery History of hysteroscopy (08/26/21) History of third molar tooth extraction Status post dilation and curettage Status post laparoscopic cholecystectomy Medical History (Last Reviewed 03/26/24 @ 09:26 by Fara ) Infertility Physical Therapy Inpatient Evaluation/Re-Eval M1 PT/OT-IP Prior Functional Status Start: 03/26/24 13:26 Freq: NEEDED Status: Active Protocol: Document 03/26/24 11:25 AB (Rec: 03/26/24 13:37 AB [id number]) Medical Review Prior Functional Status Medical History Reviewed Yes Communication able to make needs known Mobility and Gait pt stated that she is independent with all mobilities and ambulation without AD Social History Household Members family Living Arrangements House Number of Floors (Floors) Two Floors Number of Stairs To Enter/Railing? pt stays on main level of the house 3 steps without rails to enter the house Home Environment Standard Height Toilet,Walk in Shower Additional Social History Comment pt lives with her son but son works and will not be available to assist her M2 PT-IP Current Condition Start: 03/26/24 13:26 Freq: NEEDED Status: Active Protocol: Document 03/26/24 11:25 AB (Rec: 03/26/24 13:37 AB [id number]) Physical Therapy Current Condition Current Condition Evaluation Date 03/26/24 Treatment Diagnosis pyelonephritis; difficulty in walking Onset Date 03/24/24 M3 PT-IP Subjective Start: 03/26/24 13:26 Freq: NEEDED Status: Active Protocol: Document 03/26/24 11:25 AB (Rec: 03/26/24 13:37 AB [id number]) Subjective Physical Therapy Visit Type Type Initial Evaluation Visit Start Time 11:25 Visit Stop Time 11:45 Number of BACTERIOLOGIST INDUSTRIAL Visits 0 Physical Therapy Visit Comments Patient Comments agreeable to do PT Therapy Pain Assessment Pain When Pain Assessed At Rest Pain Present Pain Present Pain Reported Location Right Flank Intensity 5 Scale Used Numeric (0 - 10) Pain Management Techniques Distraction,Modification of Treatment,Re-positioning, Timing of Activity with Medications M4 PT-IP Mobility and Gait Start: 03/26/24 13:26 Freq: NEEDED Status: Active Protocol: Document 03/26/24 11:25 AB (Rec: 03/26/24 13:37 AB [id number]) PT-Bed Mobility Assessment Supine to Sit Supine to Sit Independent Sit to Supine Sit to Supine Independent PT-Transfer Assessment Sit to and From Stand Sit to and from Stand Independent Equipment Transfer Assistive Device None,Gait Belt Orthotic/Prosthetic Devices or Brace: No Transfers Transfer Destination Toilet Transfer Technique ambulated Transfer Ability Level of Assist Standby Assistance,1 Person Assistance,Use of Upper Extremities Comments Mobility Comments pt supine in bed and agreeable to do PT. obtained PLOF and home set up. pt completed supine to sit independent. able to sit on EOB SBA. sit to stand mod I and ambulated in room without AD ~ 50 ft SBA . presents with decrease evy and with stooped posture. cued pt to correct but refused to stand upright with c/o increase pain with upright posture. pt requested to use the toilet and ambulated to the toilet SBA. completed toileting needs without assistance. ambulated towards the sink without AD and was able to maintain standing balance SBA while completing handwashing. pt completed up/down step stool without AD SBA. completed 3 sets. pt requested to go back to bed. sit to supine mod I. positioned pt in bed. call light and table placed within reach. informed pt and nurse that no further PT needs. pt agreed to get up and walk with nursing staff. Gait Assessment Gait Gait Assistance Required: Standby Assistance Distance (Feet) 50 Able to Maintain Weight Bearing Status Yes During Gait Assistive Devices Assistive Device None,Gait Belt Orthotic/Prosthetic Devices or Brace: No Gait Deviations General Gait Pattern Antalgic,Decreased Stride Length,Flexed Trunk Factors Limiting Gait Function Factors Limiting Gait Function Decreased Activity Tolerance, Decreased Strength,Difficulty Following Directions,Limited Range of Motion,Pain,Poor Balance,Poor Safety Awareness Stair Climbing Assessment Evaluation Level of Assist On Stairs Standby Assistance Devices Stair Climbing Assistive Devices None Technique/Endurance Stair Climbing Direction Ascend and Descend Stair Climbing Technique Step to Step Number of Steps Climbed 1 Query Text: Stair Climbing Set # Repetitions (reps) 3 PT-Balance Assessment Sitting Balance and Reactions Static Sitting Balance Ability Normal Dynamic Sitting Balance Ability Normal Standing Balance and Reactions Static Standing Balance Ability Good Dynamic Standing Balance Ability Good Device Used without AD M5 PT-IP Objective Assessments Start: 03/26/24 13:26 Freq: NEEDED Status: Active Protocol: Document 03/26/24 11:25 AB (Rec: 03/26/24 13:37 AB [id number]) Orientation Orientation/Cognition Level of Alertness Alert Orientation Name,Place,Situation Language Function Ability No Deficits Noted Safety Awareness Understands Safety Issues Memory Description No Deficits Noted Gross Range of Motion Lower Extremity ROM Assessment Within Functional Limits Strength Lower Extremity Strength Assessment Within Functional Limits Coordination Assessment Gross Coordination Gross Coordination WNL Sensation Assessment Sensation Gross Sensation WNL Muscle Tone Muscle Tone WNL Yes M6 PT-IP Treatment Start: 03/26/24 13:26 Freq: NEEDED Status: Active Protocol: Document 03/26/24 11:25 AB (Rec: 03/26/24 13:37 AB [id number]) Physical Therapy Treatment Education Education Provided Safety M7 PT-IP Assessment and Plan Start: 03/26/24 13:26 Freq: NEEDED Status: Active Protocol: Document 03/26/24 11:25 AB (Rec: 03/26/24 13:37 AB [id number]) PT Summary Assessment and Plan Potential Rehabilitation Potential Fair Status of Condition at Evaluation Evolving Summary Impairments Pain,ROM,Strength,Balance, Coordination,Sensation,Tone, Cognition,Bed Mobility, Transfers,Gait,Activity Tolerance Assessment Summary pt is a 58 y/o F who presented with R flank pain. pt admitted for pyelonephritis. pt is modified I with bed mobility and sit to stand. able to ambulate in room without AD SBA. pt with c/o R flank pain affecting mobility level and tolerance. no further PT needs at this time. pt to mobilize and ambulate with nursing staff. Frequency of Treatment Frequency Of Treatment Discharge Recommendations To Nursing Amount of Assist Needed Standby Assistance Discharge Recommendations PT Discharge Recommendations Home with Assistance Transportation Needs at Discharge Private Vehicle
[2024-03-26 12:00] VITALS: BP 104/71; PULSE 53; RESP 16; TEMP 36.3; O2SAT 98
[2024-03-26 16:00] VITALS: BP 116/69; PULSE 64; RESP 16; TEMP 36.4; O2SAT 97
[2024-03-26 17:11] VITALS: BP 121/76; PULSE 70
[2024-03-26] MEDS: lisinopriL 5 MG TABLET 2.5 MG PO (17:11)
[2024-03-26 20:00] VITALS: BP 120/74; PULSE 68; RESP 12; TEMP 36.2; O2SAT 96
[2024-03-26] MEDS: hydrOXYzine HCL 25 MG TABLET 50 MG PO (20:56)
[2024-03-26] MEDS: carBAMazepine XR 100 MG TAB PO (20:56)
[2024-03-27] VITALS: BP 122/75; PULSE 68; TEMP 36.6; O2SAT 95
[2024-03-27] MEDS: diazePAM 5 MG TABLET PO ×4 (00:03→17:41)
[2024-03-27] MEDS: ACETAMINOPHEN 325 MG TABLET 650 MG PO ×2 (00:03→06:17)
[2024-03-27] MEDS: CYCLOBENZAPRINE 10 MG TABLET PO ×2 (00:03→09:21)
[2024-03-27 04:00] VITALS: BP 102/63; PULSE 65; RESP 12; TEMP 36.5; O2SAT 98
[2024-03-27] MEDS: LEVOTHYROXINE 50 MCG TABLET PO (04:54)
[2024-03-27 05:17] LABS: Add Manual Diff / Slide Review NO; Basophils Absolute Auto 0 /uL (0-100); Basophils Percent Auto 0.9 % (0-2); Eosinophils Absolute Auto 200 /uL (0-450); Eosinophils Percent Auto 3.3 % (2-4); Hematocrit 32.2 % (36-46); Lymphocytes Absolute Auto 2200 /uL (1100-4500); Lymphocytes Percent Auto 48.2 % (25-40); Mean Corpuscular HGB Conc 34.1 % (30-36); Mean Corpuscular Hemoglobin 31.9 PG (26-34); Mean Corpuscular Volume 93.6 fL (80-100); Monocytes Absolute Auto 400 /uL (0-900); Monocytes Percent Auto 8.2 % (3-14); Neutrophils Absolute Auto 1800 /uL (1500-7000); Neutrophils Percent Auto 39.4 % (50-75); Platelet Count 148 X10^3/uL (150-400); Red Blood Cell Count 3.44 X10^6/uL (4.0-5.2); Red Cell Distribution Width 12.8 % (11.6-14.8); White Blood Cell Count 4.5 X10^3/uL (4.5-11.0)
[2024-03-27 05:34] LABS: Alanine Aminotransferase 27 IU/L (<35); Albumin 3.3 g/dL (3.5-5.0); Albumin Globulin Ratio 1.2 (1.0-2.8); Alkaline Phosphatase 53 U/L (38-126); Aspartate Aminotransferase 33 IU/L (14-36); BUN Creatinine Ratio 22.7 (6-22); Bilirubin Total 0.2 mg/dL (0.2-1.3); Blood Urea Nitrogen 25 mg/dL (7-17); Calcium 8.9 mg/dL (8.4-10.2); Carbon Dioxide 31 mmol/L (22-32); Chloride 106 mmol/L (98-107); Estimated Glomerular Filt Rate 59 mL/min (>60); Globulin 2.7 g/dL (1.7-4.1); Glucose 98 mg/dL (70-100); HEMOLYSIS < 15 (0-50); Potassium 4.2 mmol/L (3.4-5.1); Sodium 137 mmol/L (137-145)
[2024-03-27 08:00] VITALS: BP 103/63; PULSE 60; RESP 18; TEMP 35.4; O2SAT 97
[2024-03-27] MEDS: ACYCLOVIR 400 MG TABLET PO (08:31)
[2024-03-27] MEDS: VENLAFAXINE ER 75 MG CAP 150 MG PO (08:31)
[2024-03-27] MEDS: carBAMazepine XR 100 MG TAB 200 MG PO (08:31)
--- NOTE | 2024-03-27 08:43 | DI.RAD.S_ITS ---
PROCEDURE: XR RIBS RT 2V INDICATIONS: right lower rib pain TECHNIQUE: 2 views of the ribs were acquired. COMPARISON: None. FINDINGS: Bones: No acute displaced fracture. There is a questionable lucency at the cartilaginous junction of the right anterior 10th rib. Degenerative changes and slight superior positioning of the right clavicle in relation to the acromion. Soft tissues: No suspicious calcifications. IMPRESSION: Questionable nondisplaced lucency at the cartilaginous junction of the right anterior 10th rib, correlate with location of injury. Degenerative changes and slight superior positioning of the right clavicle in relation to the acromion, correlate with any additional injury in this location. Dictated by: Raji Mcdonald M.D. on 03/27/2024 at 10:32 Approved by: Raji Mcdonald M.D. on 03/27/2024 at 10:34
--- NOTE | 2024-03-27 08:45 | PM.PN.1 ---
Subjective Subjective Date Patient Seen: 03/27/24 Time Patient Seen: 08:45 Interval history: Patient seen in follow-up of right lateral abdominal pain. Patient has had slight improvement but not much. She has not had any black or tarry stools. Has had 1 bowel movement since she has been here. He has had no other change or complaint. No nausea. Having chills. But no fevers. Otherwise no change. Exam Vital Signs (past 8 hours): - 03/27/24 04:00 03/27/24 08:00 Temperature 97.7 F 95.8 F L Pulse Rate 65 60 Respiratory Rate 12 18 Blood Pressure 102/63 103/63 Pulse Oximetry 98 97 Oxygen Flow Rate 0 0 Oxygen Delivery Method Room Air Oxygen Flow Rate 0 Narrative Exam Narrative: Alert female lying in bed moderate distress. Lungs are clear heart is regular rate and rhythm patient has tenderness in the lower ribcage on the lateral surface going around to the back. Does have some muscular tenderness. Worse between rib and ileum. Abdomen is soft positive bowel sounds really with no tenderness Objective Labs 03/27/24 04:50 03/27/24 04:50 Labs: Laboratory Results - last 24 hr 03/26/24 03/27/24 08:25 04:50 WBC 4.5 RBC 3.44 L Hgb 11.0 L Hct 32.2 L MCV 93.6 MCH 31.9 MCHC 34.1 RDW 12.8 Plt Count 148 L Neut % (Auto) 39.4 L Lymph % (Auto) 48.2 H Cassia % (Auto) 8.2 Eos % (Auto) 3.3 Baso % (Auto) 0.9 Neut # (Auto) 1800 Lymph # (Auto) 2200 Cassia # (Auto) 400 Eos # (Auto) 200 Baso # (Auto) 0 Sodium 139 137 Potassium 4.3 4.2 Chloride 109 H 106 Carbon Dioxide 28 31 BUN 20 H 25 H Creatinine 1.07 H 1.10 H Estimated GFR > 60 59 L BUN/Creatinine Ratio 18.7 22.7 H Glucose 101 H 98 Calcium 8.4 8.9 Total Bilirubin 0.2 0.2 AST 34 33 ALT 27 27 Alkaline Phosphatase 54 53 Total Protein 5.6 L 6.0 L Albumin 3.3 L 3.3 L Globulin 2.3 2.7 Albumin/Globulin Ratio 1.4 1.2 [facility] Medical History Infertility Surgical History H/O hysterectomy for benign disease History of hysteroscopy (08/26/21) Anesthesia History of hand surgery Status post dilation and curettage History of third molar tooth extraction Status post laparoscopic cholecystectomy Social History household members: family Smoking Status: Never smoker alcohol intake: former Assessment & Plan Assessment & Plan narrative: Right-sided abdominal pain/flank pain. Etiology is unclear. Does not appear to be pyelonephritis. Now hematocrit is dropping. But no evidence of bleeding that we can see. No fever but does have chills. No white count. Possible so as abscess. Or other change. Seems GI would be unlikely without some change in bowel movements. Or abdominal discomfort. Calcium is normal. Unlikely metastatic disease. Previous CT scan was negative. Still possible muscular. Will repeat CT scan. CRP and ESR. Re-evaluate later this afternoon. Can not use anti-inflammatories due to her allergies. Which makes this more difficult. If it is muscular. Seems out of proportion to a muscular issue. Neurologic impact his possible but seems less likely with the amount of tenderness she has on palpation. May need to consider MRI of back. Would have to consider lower thoracic and upper LS spine. Will see what CT scan goes and inflammatory markers. Follow-up later today. UTI. Culture negative. Antibiotics.. Will follow. Anemia. Slightly worse than yesterday. Stable at this time. No evidence of bleeding that we can see. Will check guaiac and iron studies and re-evaluate. Follow-up later today. Bipolar disease stable she has been doing very well overall and will continue her current meds. DVT prophylaxis on SCDs. Code status full. Disposition. He making minimal impact on pain control while she is controlled on IV pain meds certainly am not improving much in her pain. Have not definitively isolated cause. Seems out of proportion to possible musculoskeletal but is still possible. Will see what above tests show and follow from there. Unlikely to go home today. Time-Based Coding :: [TOTAL MINUTES] spent with patient and on the chart (including review of chart, obtaining history, exam, reviewing outside data, placing orders, documenting exam and treatment plan, and counseling patient) on [DATE].
--- NOTE | 2024-03-27 08:58 | DI.CT.S_ITS ---
PROCEDURE: CT CHEST ABD PEL W CON INDICATIONS: persistent right lateral pain and chills TECHNIQUE: After the administration of intravenous contrast, 5 mm thick sections acquired from the lung apices to the symphysis. 5 mm coronal and sagittal reformats were performed, with additional 7 mm MIP reformats through the lungs. For radiation dose reduction, the following was used: automated exposure control, adjustment of mA and/or kV according to patient size. COMPARISON: [facility], CT, CT ABDOMEN PELVIS W CON, 02/22/2023, 20:20. [facility], CT, CT ANGIO CHEST PE PROTOCOL, 08/28/2021, 16:40. [facility], CT, CT KIDNEY URETER BLADDER (KUB), 03/24/2024, 18:33. FINDINGS: Image quality: Diagnostic Lungs and pleura: Mild atelectasis. No pneumothorax. No overtly suspicious pulmonary nodules. Mediastinum, heart, and esophagus: No hiatal hernia. Normal heart size. No pathologic lymph nodes by size criteria. Chest wall and thyroid: Unremarkable Liver: No laceration. No capsular hematoma Gallbladder and biliary system: Absent, similar distension of the biliary system likely related to post surgical state. There is a small duodenal diverticulum adjacent to the ampulla Pancreas: No ductal dilation Spleen: Nonenlarged Adrenals: No discrete nodules Kidneys: No solid mass or hydronephrosis. Vessels and lymph nodes: The main portal vein is patent. No abdominal aortic aneurysm. No pathologic lymph nodes by size criteria. Bowel and peritoneum: No evidence of small bowel obstruction. There is moderate fecal loading. No hemoperitoneum. No drainable abscess. The appendix is nondilated Body wall: Unremarkable Pelvis: Under distended bladder with mild wall thickening. The uterus is absent Bones: Pelvic ring appears intact. Degenerative changes are present. No acute displaced fracture is seen. IMPRESSION: No acute abnormality identified in the chest, abdomen, or pelvis. No displaced fracture. [id number] distention of the biliary system is again seen post cholecystectomy, correlate LFTs, similar to 2022. Moderate fecal loading. No small bowel obstruction. Other findings above. Dictated by: Raji Mcdonald M.D. on 03/27/2024 at 10:55 Approved by: Raji Mcdonald M.D. on 03/27/2024 at 11:01
[2024-03-27 09:04] LABS: HEMOLYSIS < 15 (0-50); Iron 67 ug/dL (37-170)
[2024-03-27 09:06] LABS: C-Reactive Protein Quant < 0.5 mg/dL (<1.0)
[2024-03-27 09:15] LABS: Percent Iron Saturation 34 % (15-50); Total Iron Binding Capacity 196 ug/dL (265-497); Transferrin 171 mg/dL (206-381)
[2024-03-27] MEDS: HYDROMORPHONE 2 MG TABLET PO (09:21)
[2024-03-27 10:25] LABS: Erythrocyte Sedimentation Rate 6 MM/HR (0-20)
--- NOTE | 2024-03-27 11:14 | CM.DPNOTE ---
SUSY Cont Reviewed chart. Patient discussed in multidisciplinary rounds. work up continues as patient is complaining of severe and persistent back pain. Patient has been discharged from therapy's service, indp. Activity currently limited by pain. Plan remains discharge home w/family w/close outpatient follow up. CM team following clinical course closely in case any discharge needs or concerns arise. SB
[2024-03-27 12:00] VITALS: BP 90/51; PULSE 62; RESP 17; TEMP 36.4; O2SAT 97
[2024-03-27 17:40] VITALS: BP 113/70; PULSE 65
[2024-03-27] MEDS: lisinopriL 5 MG TABLET 2.5 MG PO (17:40)
[2024-03-27 17:46] VITALS: BP 113/70; PULSE 65; RESP 16; TEMP 36.3; O2SAT 98
--- NOTE | 2024-03-27 18:26 | PM.DS.1 ---
History of Present Illness History of Present Illness Chief complaint: R side px 1wk Narrative: Patient is a 58-year-old female well known to me with history of bipolar disease and early renal failure who presents with acute right-sided flank pain. Patient states that it has been slowly coming on over the last week. Had been doing well up until yesterday when she had an acute worsening. Pain is sharp all on the right side mostly lateral. No radiation. Worse with certain movements. Otherwise nothing seems to make a difference. She has had no nausea vomiting fevers chills. No urinary symptoms no change in her bowel movements. No history of trauma. 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 When into her house and basically called her mom who called 911. Patient did not sleep well last night. Can only lay on her left side. No other significant change. She has had no fevers or chills. Does not feel sick. Just has a sharp pain. Discharge Providers Provider Date of admission: 03/26/24 10:25 Discharge Date: 03/27/24 Primary care physician: Onur Martini MD Consults: 03/26/24 08:51 Consult to Physical Therapy Evaluate & Treat Comment: BACK PAIN Physician Instructions: Evaluate and Treat Discharge provider: Onur Martini MD Summary Hospital Course Discharge Diagnosis: Right side pain Abnormal urine Anemia Bipolar 2 Hospital Course: Right-sided pain. Patient had CT scan in the emergency room. Was unclear and thought to be secondary to possible pyelonephritis. Exam showed persistent pain in the right lateral side. With palpation of her ribs and her back it equivalent side. There was no rash. Was felt to be possible shingles but that was not defined. There was no other change. Pain control was obtained with muscle relaxants with Valium and Dilaudid for pain Patient was started on Rocephin initially and through the course of 48 hours until cultures were negative and then discontinued. Due to the unclear nature of her pain in her being cold repeat CT scan was done for possible occult infection. White count remained normal. Repeat CT scan showed no abnormality. Sed rate and CRP were normal. X-ray showed a probable rib. Which fit with her exam completely. No evidence of further infection no evidence of abdominal pathology and at this point she will be discharged to home. She will use pain medicines and Valium short term I will see her Monday and we will read decide at that time. We discussed that this maybe four-week experience. She was unable to take anti-inflammatories due to allergy which would certainly be helpful. Patient understands. Will call if change. Anemia. Patient was found to be anemic and iron studies were done. They did not show any significant abnormality. Guaiac was not able to be done because she did not have a bowel movement. But she has had no change in her bowel movements no black or tarry stool. Could be from initial hydration and will be followed as an outpatient. Stool will be evaluated and we will follow with repeat exam and labs on Monday. We discussed that it is unclear at this time and she understands but I do not think it should hold up discharge. She will call if change in stools or dizziness lightheadedness. Abnormal urine. Patient was initially thought to have UTI. Cultures were negative and antibiotics were discontinued. Did not appear to be infected. Bipolar 2. On medication followed by psychiatrist stable. Exam Vital Signs (past 8 hours): - 03/27/24 12:00 03/27/24 17:40 03/27/24 17:46 Temperature 97.6 F 97.4 F L Pulse Rate 62 65 65 Respiratory Rate 17 16 Blood Pressure 90/51 L 113/70 113/70 Pulse Oximetry 97 98 Oxygen Flow Rate 0 0 Oxygen Delivery Method Room Air Oxygen Flow Rate 0 Narrative Exam Narrative: Alert female in moderate distress with movement. Lungs are clear heart is regular rate and rhythm her right side shows tenderness up into the lower ribs. And some muscle tenderness going around into the paravertebrals on the right side. There was no swelling erythema she shows no rash. Abdomen is soft positive bowel sounds she has no tenderness. Or other change. Neurologic exam is unremarkable. Objective Labs 03/27/24 04:50 03/27/24 04:50 Labs: Laboratory Results - last 24 hr 03/27/24 04:50 WBC 4.5 RBC 3.44 L Hgb 11.0 L Hct 32.2 L MCV 93.6 MCH 31.9 MCHC 34.1 RDW 12.8 Plt Count 148 L Neut % (Auto) 39.4 L Lymph % (Auto) 48.2 H [place] % (Auto) 8.2 Eos % (Auto) 3.3 Baso % (Auto) 0.9 Neut # (Auto) 1800 Lymph # (Auto) 2200 [place] # (Auto) 400 Eos # (Auto) 200 Baso # (Auto) 0 ESR 6 Sodium 137 Potassium 4.2 Chloride 106 Carbon Dioxide 31 BUN 25 H Creatinine 1.10 H Estimated GFR 59 L BUN/Creatinine Ratio 22.7 H Glucose 98 Calcium 8.9 Iron 67 TIBC 196 L % Saturation 34 Transferrin 171 L Total Bilirubin 0.2 AST 33 ALT 27 Alkaline Phosphatase 53 C-Reactive Protein < 0.5 Total Protein 6.0 L Albumin 3.3 L Globulin 2.7 Albumin/Globulin Ratio 1.2 PFSH Medical History Infertility Surgical History H/O hysterectomy for benign disease History of hysteroscopy (08/26/21) Anesthesia History of hand surgery Status post dilation and curettage History of third molar tooth extraction Status post laparoscopic cholecystectomy Social History household members: family Smoking Status: Never smoker alcohol intake: former Discharge Assessment & Plan Assessment and Plan Assessment: Stable. Plan of Treatment: Discharge home follow as outpatient. Patient will call if worsening or changes week and I am on-call weekend Discharge Plan Discharge Plan Patient Disposition: Home Discharge orders & Medications Prescriptions: Continued levothyroxine 50 mcg Tablet 50 mcg PO DAILY venlafaxine 150 mg capsule,extended release 24hr 150 mg PO DAILY hydroxyzine HCl 50 mg tablet 50 mg PO QPM acyclovir 400 mg tablet 400 mg PO BID methocarbamol 750 mg tablet 750 mg PO Q6H PRN (Reason: Spasms) fluticasone propionate 50 mcg/actuation spray,suspension 1 spray intranasal DAILY lisinopril 2.5 mg tablet 2.5 mg PO QPM carbamazepine 200 mg capsule, ER multiphase 12 hr 200 mg PO SEEINSTR Rx Instructions: Take two tablets by mouth in the morning and one tablet by mouth in the evening. Follow up/Referrals: Onur Martini MD [Primary Care Provider] - 04/01/24 (Patient to call Monday for appointment.) Activity Restrictions/Additional Instructions: Patient should relaxed. Use heat on side. No heavy lifting or bending Discharge Health Status Multidrug resistant organism: No MDRO Diet/Activity/Treatments Diet: Diet as Tolerated Activity: As tolerated Skin/Wound/Dressing Care Report to your healthcare provider any signs of infection, such as:: increased pain Visit Report/Discharge Packet Stand Alone Forms: Patient Portal/API, Stroke Signs & Symptoms, Patient Portal/API/Survey Discharge Data Primary Care Provider: Onur Martini
--- NOTE | 2024-03-27 19:01 | PC.NURSE ---
Day shift: Discharge instructions gone over with patient. All questions answered, patient stated understanding. PIV removed prior to discharge. At 1900, patient called her mother to come pick her up. Awaiting mother to arrive at time of this note. All discharge tasks/information complete. Will update NOC VINAY Adames.
== END 2024-03-27 20:30 | disposition home or self-care (01) | DRG 552 ==
LOC: ED 21:56 → AC 21:56
PROVIDERS: Family Medicine; Admitting Provider Family Medicine; Emergency Provider Emergency Medicine; PCP Family Medicine; Referring Provider Emergency Medicine; Visit Provider Family Medicine
DX: S23.29XA Dislocation of other parts of thorax, initial encounter (principal); F31.81 Bipolar II disorder; R10.9 Unspecified abdominal pain; D64.9 Anemia, unspecified; R82.90 Unspecified abnormal findings in urine; X58.XXXA Exposure to other specified factors, initial encounter; Z90.49 Acquired absence of other specified parts of digestive tract
CPT/HCPCS: 36415; 71100; 71260; 74176; 74177; 80053; 81003; 81015; 83540; 83550; 83690; 85025; 85651; 86140; 87086; 96365; 96375; 96376; 97161; 97530; 99284; 99285; G0378; A9270; J0134; J1171; J1885; J1956; Q9967

== ENCOUNTER → 2024-04-02 13:23 | Outpatient (CLI) | payer OTHER, SELFPAY ==
[2021-11-15 14:09] VITALS: BMI 39.4
[2024-03-24 22:54] VITALS: BMI 25.4
--- NOTE | 2024-04-02 13:24 | DI.US.S_ITS ---
PROCEDURE: US RENAL COMPLETE INDICATIONS: STAGE 3B CHRONIC KIDNEY DISEASE TECHNIQUE: Real-time scanning was performed of the kidneys and bladder, with image documentation. COMPARISON: [facility], , RENAL COMPLETE, 10/11/2023, 11:29. FINDINGS: Kidneys: Kidneys are normal in size. Right kidney measures 11.4 cm long; left kidney measures 8.7 cm long. Right renal cortical thickness is 1.5 cm; left renal cortical thickness is 1.6 cm. Renal cortical echotexture is normal. No hydronephrosis or nephrolithiasis. No suspicious solid mass lesions. Bladder: Pre-void bladder volume is 0 mL. Post-void residual was not obtained. Pre-void images demonstrate no intraluminal masses or stones. On pre-void images, neither ureteral jets are noted with color Doppler interrogation. (Of note, ureteral jets may not be detectable in up to 25% of cases due to insufficient differences in specific gravity between ureteral and bladder urine). Miscellaneous: No free pelvic fluid. IMPRESSION: 1. No hydronephrosis. 2. Ureteral jets and bladder wall could not be evaluated given the decompressed bladder. Dictated by: Radha Roberts M.D. on 04/02/2024 at 15:51 Approved by: Radha Roberts M.D. on 04/02/2024 at 15:53
== END ==
PROVIDERS: PCP Family Medicine; Referring Provider Family Medicine; Visit Provider Family Medicine
DX: N18.32 Chronic kidney disease, stage 3b (principal)
CPT/HCPCS: 76770

== ENCOUNTER → 2024-04-18 12:16 | Outpatient (CLI) | payer OTHER, SELFPAY ==
[2024-03-24 22:54] VITALS: BMI 25.4
--- NOTE | 2024-04-18 12:23 | DI.RAD.S_ITS ---
PROCEDURE: XR FINGER LT MIN 2V INDICATIONS: BILATERAL THUMB PAIN TECHNIQUE: AP hand, 2 views of the 1st finger(s) acquired. COMPARISON: None. FINDINGS: Bones: No fractures or dislocations. No suspicious bony lesions. Soft tissues: No suspicious soft tissue calcifications. IMPRESSION: No acute bony abnormality. Approved by: Mirza Moore M.D. on 04/18/2024 at 16:57
--- NOTE | 2024-04-18 12:23 | DI.RAD.S_ITS ---
PROCEDURE: XR FINGER RT MIN 2V INDICATIONS: BILATERAL THUMB PAIN TECHNIQUE: AP hand, 2 views of the 1st finger(s) acquired. COMPARISON: None. FINDINGS: Bones: No fractures or dislocations. No suspicious bony lesions. Fifth PIP arthritic changes with therapeutic screw base of the 5th proximal phalanx. Soft tissues: No suspicious soft tissue calcifications. IMPRESSION: Unremarkable radiographic appearance of the thumb. Fifth finger arthritic changes and instrumentation Approved by: Mirza Moore M.D. on 04/18/2024 at 16:58
== END ==
PROVIDERS: PCP Family Medicine; Referring Provider Family Medicine; Visit Provider Family Medicine
DX: M79.644 Pain in right finger(s) (principal); M79.645 Pain in left finger(s)
CPT/HCPCS: 73140

== ENCOUNTER 2024-05-18 09:44 | Emergency (ER) | payer OTHER, SELFPAY ==
[2024-05-18] VITALS (22 sets, daily range): BP systolic 89–118; BP diastolic 50–72; PULSE 63–96; RESP 18; TEMP 36.9; O2SAT 97–100; BMI 23.3
--- NOTE | 2024-05-18 09:51 | ED.GENADULT ---
HPI - General Adult General Chief complaint: Nausea/Vomiting/Diarrhea Stated complaint: Diarrhea, Stomach Ache Time Seen by Provider: 05/18/24 09:51 History of Present Illness HPI narrative: 58-year-old woman with a history of bipolar disorder, hypothyroidism hospitalization in March of last year for right-sided abdominal pain initially thought to be pyelonephritis but cultures were negative. CT scan and repeat CT scan did not show acute findings. Final diagnosis was possibly a rib. She presents today complaining of severe diarrhea. First noticed 4 days of moderate diarrhea approximately a week and a half ago. She took Imodium is eventually resolved. She had a couple of days of normal stools and over the last 3 days she has had profuse watery diarrhea multiple times a day, general abdominal discomfort, no fevers, decreased appetite. She has not complaining of flank pain. Concurrent with the diarrhea symptoms she has experienced some vertigo that has been diagnosed as benign positional vertigo, somewhat responsive to meclizine. Description of this is not consistent with orthostatic hypotension and I think is a separate issue from the diarrhea. No fevers, vomiting, chest pain or palpitations Related Data Home Medications Medication Instructions Recorded Confirmed levothyroxine 50 mcg tablet 50 mcg PO DAILY 01/03/19 03/27/24 acyclovir 400 mg tablet 400 mg PO BID 03/24/24 03/24/24 carbamazepine 200 mg 200 mg PO SEEINSTR 03/24/24 03/27/24 capsule,extended release [id number] fluticasone propionate 50 1 spray intranasal DAILY 03/24/24 03/24/24 mcg/actuation nasal spray,suspension hydroxyzine HCl 50 mg tablet 50 mg PO QPM 03/24/24 03/24/24 lisinopril 2.5 mg tablet 2.5 mg PO QPM 03/24/24 03/24/24 methocarbamol 750 mg tablet 750 mg PO Q6H PRN Spasms 03/24/24 03/27/24 venlafaxine 150 mg 150 mg PO DAILY 03/24/24 03/24/24 capsule,extended release 24 hr Allergies Allergy/AdvReac Type Severity Reaction Status Date / Time aspirin [ASPIRIN] Allergy Severe Anaphylaxis Verified 02/22/23 16:51 codeine [CODEINE] Allergy Severe Anaphylaxis Verified 02/22/23 16:51 ibuprofen [IBUPROFEN] Allergy Severe Anaphylaxis Verified 02/22/23 16:51 gabapentin Allergy Intermediate Hives Verified 02/22/23 16:51 lamotrigine [LAMOTRIGINE] Allergy Intermediate WELTS/ITCHI Verified 02/22/23 16:51 NG oxycodone [OXYCODONE] Allergy Intermediate ITCHING Verified 02/22/23 16:51 Penicillins [PENICILLINS] Allergy Intermediate Anaphylaxis Verified 02/22/23 16:51 Sulfa (Sulfonamide Allergy Unknown Anaphylaxis Verified 02/22/23 16:51 Antibiotics) [SULFA (SULFONAMIDE ANTIBIOTICS)] Review of Systems Review of Systems Narrative: Pertinent positive and negative findings as per HPI Patient History Medical History Infertility Surgical History H/O hysterectomy for benign disease History of hysteroscopy (08/26/21) Anesthesia History of hand surgery Status post dilation and curettage History of third molar tooth extraction Status post laparoscopic cholecystectomy Social History household members: family Smoking Status: Never smoker alcohol intake: former Smoking Status: Never smoker alcohol intake frequency: other Exam Initial Vital Signs Initial Vital Signs: Vital Signs Pulse Rate 96 H 05/18/24 09:49 Pulse Oximetry 98 05/18/24 09:49 General: Fatigued appearing, circles under her eyes, able to give a complete and coherent history HEENT: Dry mucous membranes, normal sclera with reactive pupils, Respiratory: Lungs are clear to auscultation, no wheezing no rales no rhonchi. Full and symmetrical air movement Cardiac: Regular rate and rhythm no murmurs no bruits Abdomen: Soft, mild diffuse tenderness without rebound or guarding. No flank pain Skin: Somewhat pale but otherwise Warm and dry, no rashes Neurologic: Globally weak but Grossly neurologically intact with no obvious asymmetries or abnormalities Extremities: No trauma, Psych: Cooperative, appropriate insight and affect Course Orders Ordered: ED Orders 05/18/24 10:22 Complete Blood Count AUTO DIFF Stat Comprehensive Metabolic Panel Stat Lactate (Lactic Acid) Stat Lipase Stat Magnesium Stat 05/18/24 11:18 C Diff [Clostridium Difficile Tox PCR] Stat Discontinued Medications Sodium Chloride (Normal Saline 0.9%) 1,000 mls @ 1,000 mls/hr IV BOLUS ONE Stop: 05/18/24 11:04 Last Infusion: 05/18/24 11:33 Dose: Infused Documented By: Admin: 05/18/24 10:22 Dose: 1,000 mls/hr Documented By: KAREN Sodium Chloride (Normal Saline 0.9%) 1,000 mls @ 1,000 mls/hr IV BOLUS ONE Stop: 05/18/24 12:41 Last Infusion: 05/18/24 13:21 Dose: Infused Documented By: Admin: 05/18/24 11:48 Dose: 1,000 mls/hr Documented By: BRYANNA Ondansetron HCl (Ondansetron 4 Mg/2 Ml Inj) 4 mg IV NOW ONE Stop: 05/18/24 10:06 Last Admin: 05/18/24 10:22 Dose: 4 mg Documented By: KAREN Vital Signs Vital signs: Vital Signs - 8 hr 05/18/24 09:49 05/18/24 09:50 05/18/24 09:50 Temperature Pulse Rate 96 H 91 H Respiratory Rate Blood Pressure 118/72 Pulse Oximetry 98 98 Oxygen Delivery Method 05/18/24 09:56 05/18/24 10:00 05/18/24 10:01 Temperature 98.4 F Pulse Rate 83 89 Respiratory Rate 18 Blood Pressure 93/69 93/69 Pulse Oximetry 98 99 Oxygen Delivery Method Room Air 05/18/24 10:01 05/18/24 10:16 05/18/24 10:16 Temperature Pulse Rate 89 86 Respiratory Rate Blood Pressure 104/66 Pulse Oximetry 99 99 Oxygen Delivery Method 05/18/24 10:30 05/18/24 10:30 05/18/24 11:00 Temperature Pulse Rate 75 72 Respiratory Rate Blood Pressure 90/64 Pulse Oximetry 99 98 Oxygen Delivery Method 05/18/24 11:00 05/18/24 11:12 05/18/24 11:12 Temperature Pulse Rate 72 Respiratory Rate Blood Pressure 89/56 L 90/50 L Pulse Oximetry 99 Oxygen Delivery Method 05/18/24 11:14 05/18/24 11:15 05/18/24 11:15 Temperature Pulse Rate 68 68 Respiratory Rate Blood Pressure 94/63 Pulse Oximetry 99 100 Oxygen Delivery Method 05/18/24 11:30 05/18/24 11:30 05/18/24 13:20 Temperature Pulse Rate 65 70 Respiratory Rate Blood Pressure 97/59 L Pulse Oximetry 100 Oxygen Delivery Method 05/18/24 13:21 05/18/24 13:21 05/18/24 13:30 Temperature Pulse Rate 65 Respiratory Rate Blood Pressure 102/57 L 106/63 Pulse Oximetry 100 Oxygen Delivery Method 05/18/24 13:30 05/18/24 13:45 05/18/24 13:45 Temperature Pulse Rate 64 63 Respiratory Rate Blood Pressure 105/61 Pulse Oximetry 99 99 Oxygen Delivery Method 05/18/24 14:00 05/18/24 14:00 05/18/24 14:15 Temperature Pulse Rate 63 Respiratory Rate Blood Pressure 102/60 106/64 Pulse Oximetry 97 Oxygen Delivery Method 05/18/24 14:15 05/18/24 14:30 05/18/24 14:30 Temperature Pulse Rate 66 66 Respiratory Rate Blood Pressure 100/60 Pulse Oximetry 98 97 Oxygen Delivery Method 05/18/24 14:45 05/18/24 14:45 Temperature Pulse Rate 66 Respiratory Rate Blood Pressure 102/63 Pulse Oximetry 97 Oxygen Delivery Method Medical Decision Making Lab Data 05/18/24 10:22 05/18/24 10:22 Labs: Lab Results 05/18/24 05/18/24 05/18/24 Range/Units 10:13 10:22 11:18 WBC 7.1 (4.5-11.0) X10^3/uL RBC 4.53 (4.0-5.2) X10^6/uL Hgb 14.2 (12.0-16.0) g/dL Hct 42.2 (36-46) % MCV 93.1 (80-100) fL MCH 31.3 (26-34) PG MCHC 33.7 (30-36) % RDW 13.4 (11.6-14.8) % Plt Count 215 (150-400) X10^3/uL Neut % (Auto) 59.1 (50-75) % Lymph % (Auto) 24.8 L (25-40) % [place] % (Auto) 4.9 (3-14) % Eos % (Auto) 10.9 H (2-4) % Baso % (Auto) 0.3 (0-2) % Neut # (Auto) 4200 (0361-6415) /uL Lymph # (Auto) 1800 (7807-4430) /uL [place] # (Auto) 300 (0-900) /uL Eos # (Auto) 800 H (0-450) /uL Baso # (Auto) 0 (0-100) /uL Sodium 142 (137-145) mmol/L Potassium 3.9 (3.4-5.1) mmol/L Chloride 101 (98-107) mmol/L Carbon Dioxide 30 (22-32) mmol/L BUN 16 (7-17) mg/dL Creatinine 1.22 H (0.52-1.04) mg/dL Estimated GFR 52 L (>60) mL/min BUN/Creatinine Ratio 13.1 (6-22) Glucose 100 (70-100) mg/dL Lactate 1.2 (0.7-2.1) mmol/L Calcium 10.1 (8.4-10.2) mg/dL Magnesium 1.7 (1.6-2.3) mg/dL Total Bilirubin 0.6 (0.2-1.3) mg/dL AST 51 H (14-36) IU/L ALT 33 (<35) IU/L Alkaline Phosphatase 78 (38-126) U/L Total Protein 9.1 H (6.3-8.2) g/dL Albumin 5.3 H (3.5-5.0) g/dL Globulin 3.8 (1.7-4.1) g/dL Albumin/Globulin Ratio 1.4 (1.0-2.8) Lipase 310 H (23-300) U/L C. difficile Tox (PCR) Cancelled Negative for c. diff MDM Narrative Medical decision making narrative: CC: Profuse watery diarrhea worse over the last 4 days Complicating co-morbidities: Intermittent episodes of vertigo, hypertension, depression, anxiety, bipolar disorder Data collected from: patient Medical records reviewed: Recent hospitalization for abdominal pain concern for pyelonephritis reviewed Differential considered: Clostridium difficile, viral gastroenteritis, other colitis Exam documented above, pertinent findings include: Patient appears fatigued, deep circles under her eyes she has not dizzy when standing, has mild tenderness throughout the entire belly without an acute surgical abdomen Lab Test results independently reviewed as above. Pertinent findings: CBC is unremarkable Chemistries show slight acute kidney injury with creatinine increased to 1.2 and GFR down to 52. Potassium is appropriate. No significant changes to liver studies Lipase minimally elevated at 310, do not suspect acute pancreatitis C diff is negative Treatments: 2 L of fluid Discussion: 58-year-old woman with diarrhea significant enough that she has minor kidney injury and significant dehydration. She is responded well to 2 L of fluid is no longer orthostatic. She has not showing any signs of sepsis or intra-abdominal abscess. Electrolytes are reassuring. No evidence of Clostridium difficile. Her most recent stool has been solid. Discussed brat diet, clear liquids, electrolyte replacement importance of keeping fluids down. Discussed appropriate use of Imodium at home and now that she has had 2 formed stools to no longer use Imodium unless she has recurrent loose stools. Reassurance is given there was no indication for hospitalization at this time and she is safe for discharge Discharge Plan Departure Patient Disposition: Home Clinical Impression: Acute dehydration Diarrhea Qualifiers: Diarrhea type: presumed infectious Qualified Code(s): R19.7 - Diarrhea, unspecified Instructions: DI for Dehydration -- Adult Activity Restrictions/Additional Instructions: Thank you for coming in today With all the diarrhea that you have been having, you were significantly dehydrated. The 2 L of fluid that you got in the emergency department have helped her blood pressure get back to normal and your heart rate does not drop when you stand up. Your blood work was actually quite reassuring. Your kidneys were beginning to respond to the dehydration and they 2 over responded to the fluids. We checked for Clostridium difficile, you do not have that The fact that your stool has been firm most recently is reassuring and may be because of the Imodium that you took last night. Regarding Imodium, it is safe to use. You can use 1 additional pill each time you have a loose stool. Do not exceed 6 pills in the day. If you find that you are having continued intermittent episodes of severe diarrhea, I would follow up with your primary care physician. If that is so severe that you are dehydrated, dizzy having difficulty standing up perhaps severe abdominal pain please feel free to return to the ER Prescriptions: No Action levothyroxine 50 mcg Tablet 50 mcg PO DAILY venlafaxine 150 mg capsule,extended release 24hr 150 mg PO DAILY hydroxyzine HCl 50 mg tablet 50 mg PO QPM acyclovir 400 mg tablet 400 mg PO BID methocarbamol 750 mg tablet 750 mg PO Q6H PRN (Reason: Spasms) fluticasone propionate 50 mcg/actuation spray,suspension 1 spray intranasal DAILY lisinopril 2.5 mg tablet 2.5 mg PO QPM carbamazepine 200 mg capsule, ER multiphase 12 hr 200 mg PO SEEINSTR Rx Instructions: Take two tablets by mouth in the morning and one tablet by mouth in the evening. Referrals: Onur Martini MD [Primary Care Provider] - Stand Alone Forms: Patient Portal/API/Survey
[2024-05-18] MEDS: ONDANSETRON 4 MG/2 ML INJ IV (10:22)
[2024-05-18] MEDS: SODIUM CHLORIDE 0.9% 1,000 ML 1000 ML IV ×2 (10:22→11:48)
[2024-05-18 10:31] LABS: Add Manual Diff / Slide Review NO; Basophils Absolute Auto 0 /uL (0-100); Basophils Percent Auto 0.3 % (0-2); Eosinophils Absolute Auto 800 /uL (0-450); Eosinophils Percent Auto 10.9 % (2-4); Hematocrit 42.2 % (36-46); Hemoglobin 14.2 g/dL (12.0-16.0); Lymphocytes Absolute Auto 1800 /uL (1100-4500); Lymphocytes Percent Auto 24.8 % (25-40); Mean Corpuscular HGB Conc 33.7 % (30-36); Mean Corpuscular Hemoglobin 31.3 PG (26-34); Mean Corpuscular Volume 93.1 fL (80-100); Monocytes Absolute Auto 300 /uL (0-900); Monocytes Percent Auto 4.9 % (3-14); Neutrophils Absolute Auto 4200 /uL (1500-7000); Neutrophils Percent Auto 59.1 % (50-75); Platelet Count 215 X10^3/uL (150-400); Red Blood Cell Count 4.53 X10^6/uL (4.0-5.2); Red Cell Distribution Width 13.4 % (11.6-14.8); White Blood Cell Count 7.1 X10^3/uL (4.5-11.0)
[2024-05-18 10:51] LABS: Lactate (Lactic Acid) 1.2 mmol/L (0.7-2.1)
[2024-05-18 10:52] LABS: Alanine Aminotransferase 33 IU/L (<35); Albumin 5.3 g/dL (3.5-5.0); Albumin Globulin Ratio 1.4 (1.0-2.8); Alkaline Phosphatase 78 U/L (38-126); Aspartate Aminotransferase 51 IU/L (14-36); BUN Creatinine Ratio 13.1 (6-22); Bilirubin Total 0.6 mg/dL (0.2-1.3); Blood Urea Nitrogen 16 mg/dL (7-17); Calcium 10.1 mg/dL (8.4-10.2); Carbon Dioxide 30 mmol/L (22-32); Chloride 101 mmol/L (98-107); Estimated Glomerular Filt Rate 52 mL/min (>60); Globulin 3.8 g/dL (1.7-4.1); Glucose 100 mg/dL (70-100); HEMOLYSIS 30 (0-50); Lipase 310 U/L (23-300); Magnesium 1.7 mg/dL (1.6-2.3); Potassium 3.9 mmol/L (3.4-5.1); Sodium 142 mmol/L (137-145); Total Protein 9.1 g/dL (6.3-8.2)
[2024-05-18 15:03] LABS: Clostridium Difficile Tox PCR Negative for C. diff (Negative)
== END 2024-05-18 15:31 | disposition home or self-care (01) ==
PROVIDERS: Emergency Provider Emergency Medicine; PCP Family Medicine
DX: E86.0 Dehydration (principal); R19.7 Diarrhea, unspecified; R10.84 Generalized abdominal pain
CPT/HCPCS: 36415; 80053; 83605; 83690; 83735; 85025; 87493; 96361; 96374; 99284; J2405

== ENCOUNTER → 2024-06-08 15:23 | Outpatient (CLI) | payer OTHER, SELFPAY ==
--- NOTE | 2024-06-08 15:24 | DI.MG.S_ITS ---
BILATERAL DIGITAL SCREENING MAMMOGRAM 3D/2D WITH CAD: 06/08/2024 CLINICAL: Routine screening. Comparison is made to exams dated: 05/29/2023 mammogram, 03/17/2022 mammogram, 08/27/2020 mammogram, and 05/21/2015 mammogram - [facility]. There are scattered areas of fibroglandular density (category b / 25%-50% glandular tissue). Current study was also evaluated with a Computer Aided Detection (CAD) system. No significant masses, calcifications, or other findings are seen in either breast. There has been no significant interval change. IMPRESSION: NEGATIVE There is no mammographic evidence of malignancy. A 1 year screening mammogram is recommended. Based on the Tyrer Cuzick model (a risk assessment model) the patient's lifetime risk is 7.1% and her 10 year risk is 2.4%. According to the ACR, ACS, and NCCN guidelines, an annual breast MRI exam along with mammogram is recommended if the patient's lifetime risk is 20% or greater. This exam was interpreted at Station ID: [id number]. NOTE: For mammograms, a report in lay terms will be sent to the patient. Approximately 15% of breast malignancies will not be visualized mammographically. In the management of a palpable breast mass, a negative mammogram must not discourage biopsy of a clinically suspicious lesion. Electronically Signed By: True [email or web address]:06/10/2024 07:53:44 copy to: Onur Martini letter sent: Normal Exam ACR BI-RADS Category 1: Negative
== END ==
PROVIDERS: PCP Family Medicine; Referring Provider Family Medicine; Visit Provider Family Medicine
DX: Z12.31 Encounter for screening mammogram for malignant neoplasm of breast (principal)
CPT/HCPCS: 77063; 77067

== ENCOUNTER → 2024-06-25 12:36 | Outpatient (CLI) | payer OTHER, SELFPAY ==
--- NOTE | 2024-06-25 12:40 | DI.RAD.S_ITS ---
PROCEDURE: XR RIBS LT MIN 3V W CXR1V INDICATIONS: RIB PAIN ON LEFT SIDE TECHNIQUE: 2 views of the ribs were acquired, along with a single view chest. COMPARISON: None. FINDINGS: Surgical changes and devices: Surgical clips are seen in gallbladder fossa. Bones and chest wall: No fractures or dislocations. No suspicious bony lesions. Overlying soft tissues appear unremarkable. Lungs and pleura: No pleural effusions or pneumothorax. Lungs appear clear. Mediastinum: Mediastinal contours appear normal. Heart size is normal. IMPRESSION: No displaced rib fractures or pneumothorax. Dictated by: Franco Ivory M.D. on 06/25/2024 at 15:03 Approved by: Franco Ivory M.D. on 06/25/2024 at 15:28
== END ==
PROVIDERS: PCP Family Medicine; Referring Provider Family Medicine; Visit Provider Family Medicine
DX: R07.81 Pleurodynia (principal)
CPT/HCPCS: 71101

== ENCOUNTER → 2024-09-05 10:54 | Outpatient (CLI) | payer OTHER, SELFPAY ==
--- NOTE | 2024-09-05 10:55 | DI.RAD.S_ITS ---
PROCEDURE: XR KNEE 2V WB RIGHT INDICATIONS: R KNEE PAIN TECHNIQUE: 3 views of the knee were acquired. COMPARISON: None. FINDINGS: Bones: No fractures or dislocations. No suspicious bony lesions. Moderate medial and lateral tibiofemoral and moderate to severe patellofemoral compartment narrowing with associated osteophytosis. Soft tissues: No joint effusion. No suspicious soft tissue calcifications. IMPRESSION: KL grade 2 tricompartmental osteoarthritis without evidence of acute bony abnormality or significant effusion. Dictated by: Blayne Ruvalcaba M.D. on 09/06/2024 at 2:15 Approved by: Blayne Ruvalcaba M.D. on 09/06/2024 at 2:16
== END ==
PROVIDERS: PCP Family Medicine; Referring Provider Family Medicine; Visit Provider Family Medicine
DX: S89.91XA Unspecified injury of right lower leg, initial encounter (principal); M17.11 Unilateral primary osteoarthritis, right knee; X58.XXXA Exposure to other specified factors, initial encounter
CPT/HCPCS: 73560

== ENCOUNTER → 2024-09-26 11:41 | Outpatient (CLI) | payer OTHER, SELFPAY ==
--- NOTE | 2024-09-26 11:42 | DI.MRI.S_ITS ---
PROCEDURE: MR KNEE RT WO CON INDICATIONS: evaluate R knee injury TECHNIQUE: Noncontrast sagittal PD fast spin echo and T2 fast spin echo with fat saturation, sagittal 3-D FLASH with fat saturation; coronal T1 spin echo and PD fast spin echo with fat saturation, and axial PD fast spin echo with fat saturation through the knee. COMPARISON: [facility], MR, MR KNEE RT WO CON, 12/27/2017, 7:49. FINDINGS: Image quality: Excellent. There is no marrow edema to suggest an acute fracture or bony contusion. There is superficial soft soft tissue edema involving the lateral aspect of the knee. There is again seen mild chondromalacia involving the lateral facet of the patella. There is a small joint effusion. Articular cartilage of the medial lateral compartments appear normal. The medial collateral ligaments normal. The lateral collateral ligaments normal. The anterior and posterior cruciate ligaments are normal. The medial meniscus is normal. The lateral meniscus again demonstrates subtle horizontal signal whose appearance is improved as compared to previous study. Quadriceps and patellar tendons are intact. There is increased signal involving the quadriceps tendon insertion consistent with strain. No evidence of Suh's cyst. IMPRESSION: No evidence of significant internal derangement. Mild chondromalacia patella. Strain involving the quadriceps tendon at its insertion. Interval improvement of the previously described lateral meniscal tear. Dictated by: Reymundo Lovell M.D. on 09/27/2024 at 8:47 Approved by: Reymundo Lovell M.D. on 09/27/2024 at 8:57
== END ==
PROVIDERS: PCP Family Medicine; Referring Provider Orthopaedic Surgery Adult Reconstructive Orthopaedic Surgery; Visit Provider Orthopaedic Surgery Adult Reconstructive Orthopaedic Surgery
DX: S76.111A Strain of right quadriceps muscle, fascia and tendon, initial encounter (principal); M17.11 Unilateral primary osteoarthritis, right knee; M25.461 Effusion, right knee; M22.41 Chondromalacia patellae, right knee; M25.561 Pain in right knee; X58.XXXA Exposure to other specified factors, initial encounter
CPT/HCPCS: 73721

== ENCOUNTER 2024-11-13 11:13 | Day surgery (SDC) | payer OTHER, SELFPAY ==
[2024-11-07 12:20] VITALS: BMI 22.6
[2024-11-13 11:50] VITALS: BMI 22.6
[2024-11-13] MEDS: LACTATED RINGERS 1,000 ML 42 ML IV (11:56)
[2024-11-13] MEDS: ACETAMINOPHEN 325 MG TABLET 975 MG PO (11:57)
[2024-11-13 12:03] VITALS: BP 103/73; PULSE 69; RESP 16; TEMP 36.3; O2SAT 100
--- NOTE | 2024-11-13 12:05 | PM.PREOP ---
Pre-operative Note COVID-19 COVID-19 status: Not tested Interval Note History & Physical reviewed/Exam performed by Physician: Yes Changes to H&P: No
[2024-11-13] MEDS: CLINDAMYCIN 600 MG/50 ML PIGGYBACK 50 MG IV (12:30)
--- NOTE | 2024-11-13 12:49 | SUR.OPER ---
Supine on padded OR bed, head on pillow, arms secured on padded arm boards at <90 degrees abduction, legs uncrossed, safety belt at torso, tape over blanket over non operative lower leg. Operative leg with arthroscopy cart leg felix in place. Dr. Fernandez in room at time of positioning, and approved final position.
[2024-11-13] MEDS: BUPIVACAINE 0.25% (PF) VIAL 30 ML INJ (12:58)
[2024-11-13] MEDS: SODIUM CHLORIDE IRRIG SOLUTION 3,000 ML, EPINEPHrine 3 MG IRR (12:58)
[2024-11-13 13:10] VITALS: BP 111/62; PULSE 69; RESP 12; TEMP 36.6; O2SAT 100
[2024-11-13 13:16] VITALS: BP 110/60; PULSE 69; RESP 16; TEMP 36.6; O2SAT 100
[2024-11-13 13:22] VITALS: BP 121/68; PULSE 65; RESP 18; TEMP 36.4; O2SAT 100
--- NOTE | 2024-11-13 13:24 | PM.OP.1 ---
Operative Date/Time/Diagnoses Date of procedure: 11/13/24 Time of procedure: 12:57 Pre-op diagnosis: right knee lateral meniscus tear and osteoarthritis Post-op diagnosis: same Procedure & Clinicians Procedure: Right knee arthroscopy with lateral meniscal debridement and chondroplasty Same procedure(s) as scheduled: Yes Surgeon: Asiya Fernandez Fence Installer Helper: Melissa Joshi Anesthesia Type: General Operative Notes Findings: see below Closure Type: primary Specimen(s): none sent Applied: none Estimated Blood Loss (mL): 2 Blood products transfused: none Tourniquet time (min): 13 Procedure in detail: Preoperative diagnosis: ?Right knee lateral meniscus tear Procedure performed: ?Right knee arthroscopy with lateral meniscal debridement and chondroplasty ?Postoperative diagnosis: ?1.? Right knee partial lateral meniscus tear 2.? Right knee patella central facet grade 2 chondromalacia 3. Right knee lateral tibial plateau grade 4 chondromalacia Primary Surgeon: Asiya Fernandez, DO ?switchboard operator assistant:? Melissa Joshi PA-C Anesthesia: General EBL: 2 ml Tourniquet: ?13 minutes @ 250 mmHg Implants: none Indication For Surgery: ?See Pre-op H&P Examination Under Anesthesia: ROM equal to the contralateral side. Grade IA Katlyn Stable to varus and valgus stressing at 0 & 30 degrees. No mechanical sensations Diagnostic Arthroscopy: Loose bodies: None Synovium: exuberant and exuberant fat pad Patella cartilage:? Grade 2 chondromalacia Trochlear cartilage: intact Medial femoral condyle cartilage: intact Medial tibial plateau cartilage: intact Medial meniscus: intact ACL: ?Intact PCL: intact Lateral femoral condyle cartilage: intact Lateral tibial plateau cartilage: Grade IV chondromalacia ? entire tibial plateau? Lateral meniscus: frayed Procedure in Detail: The patient was met in the pre-operative hold area. Consent was verified and operative extremity was signed. The patient was brought back to the operating room. The patient was placed supine position on the operating table. A general anesthetic was administered. A well-padded tourniquet was placed on the thigh. An exam under anesthesia was performed with the above findings.? The lower extremity was then prepped and draped in the usual sterile fashion. A timeout was performed per protocol. All members of the operating team were in agreement, and we proceeded. The Esmarch was used to exsanguinate the limb and the tourniquet was inflated. An 11 blade scalpel was used to make an anterolateral arthroscopic portal. The arthroscope was introduced into the knee and the anteromedial portal was created under direct visualization using needle localization. A diagnostic arthroscopy was performed with the above-stated findings.? The suction shaver use used to debride the lateral meniscus tear. ?The fat pad was debrided and the frayed cartilage was debrided. ? The wounds were irrigated.? The incisions were closed with Nylon sutures. ?A sterile dressing was applied. The patient was awakened and transferred to the recovery room in stable condition. Postoperative Plan: Same day discharge Weightbearing as tolerated. Remove dressing in [address] bandaids over incision sites. Physical therapy to start after surgery. Do not submerge wound until 4 weeks. Follow up at 2 weeks for suture removal. Complications: none
[2024-11-13 13:28] VITALS: BP 127/67; PULSE 64; RESP 20; TEMP 36.5; O2SAT 100
[2024-11-13] MEDS: HYDROMORPHONE 1 MG INJ IV (14:03)
[2024-11-13 14:45] VITALS: BP 121/78; PULSE 71; RESP 16; TEMP 36.1
== END 2024-11-13 15:00 | disposition home or self-care (01) ==
PROVIDERS: PCP Family Medicine; Referring Provider Orthopaedic Surgery; Visit Provider Orthopaedic Surgery
PROC: (CPT 29870; principal; 2024-11-13 13:45)
DX: S83.271A Complex tear of lateral meniscus, current injury, right knee, initial encounter (principal); M17.11 Unilateral primary osteoarthritis, right knee; M94.261 Chondromalacia, right knee
CPT/HCPCS: 29881; 36415; J0165; J1100; J1171; J2250; J2405; J2704; J3010